=== PATIENT | female | born 1940 | race Caucasian/White ===

== ENCOUNTER 2020-06-28 09:22 | Emergency (ER) | payer MEDICARE, SELFPAY ==
[2020-06-28 09:39] VITALS: BP 179/86; PULSE 76; RESP 18; TEMP 36.7; O2SAT 97; BMI 34.9
--- NOTE | 2020-06-28 11:06 | XR_ITS ---
EXAMINATION: RIGHT ELBOW. RIGHT SHOULDER. CLINICAL INFORMATION: Fall. COMPARISON: None TECHNIQUE: 4 views of right elbow and 4 views of right shoulder. FINDINGS: Right elbow: There is no visible acute fracture, dislocation or subluxation. There is mild spurring along the coronoid process. No abnormal joint effusion seen. Right shoulder: There is a minimally overriding comminuted fracture right humeral neck. There is no dislocation. The soft tissues are normal. XR/XR elbow RT min 3V IMPRESSION: Comminuted right humeral neck fracture with mild overriding of fragments. No dislocation. No additional bony abnormality seen. Unremarkable right elbow exam.
--- NOTE | 2020-06-28 11:06 | XR_ITS ---
EXAMINATION: RIGHT ELBOW. RIGHT SHOULDER. CLINICAL INFORMATION: Fall. COMPARISON: None TECHNIQUE: 4 views of right elbow and 4 views of right shoulder. FINDINGS: Right elbow: There is no visible acute fracture, dislocation or subluxation. There is mild spurring along the coronoid process. No abnormal joint effusion seen. Right shoulder: There is a minimally overriding comminuted fracture right humeral neck. There is no dislocation. The soft tissues are normal. XR/XR shoulder RT min 2V IMPRESSION: Comminuted right humeral neck fracture with mild overriding of fragments. No dislocation. No additional bony abnormality seen. Unremarkable right elbow exam.
--- NOTE | 2020-06-28 11:49 | ED_ITS ---
HPI - Fall General Chief Complaint: Fall Stated Complaint: rt arm inj Time Seen by Provider: 06/28/20 10:50 Source: patient Mode of arrival: ambulatory Limitations: no limitations History of Present Illness HPI Narrative: 79-year-old female with no significant past medical history presents after falling this morning. Patient states she tripped over a brick because her glasses were fogged up from her mask, she states she landed on her right arm. Patient states she is unable to move her right arm at the shoulder joint. Patient states she can move her elbow or her wrist and her fingers with no problems. States she did not hit her head, did not lose consciousness and is not on a blood thinner. Related Data Allergies Allergy/AdvReac Type Severity Reaction Status Date / Time No Known Allergies Allergy Verified 06/28/20 09:39 Review of Systems Review of Systems: Yes all other systems are reviewed and are negative [facility] Past Medical History Medical History High blood pressure Hyperlipidemia Social History Social History Advance Directives: No Advance Directives Information Provided: Yes Physical Exam Vital Signs: Vital Signs: Last Vital Signs Temp 98.0 F 06/28/20 09:39 Pulse 76 06/28/20 09:39 Resp 18 06/28/20 09:39 BP 179/86 H 06/28/20 09:39 Pulse Ox 97 06/28/20 09:39 Body Mass Index 34.9 Const: General: cooperative, healthy appearing, comfortable, no acute distress and well developed Orientation/consciousness: patient oriented x3 HENMT: Head: Yes normal to inspection Face and sinus: Yes normal facial exam Eyes: General: appearance normal, both eyes and all related structures Pupils: Equal, round and reactive pupils present EOM: EOMs intact bilaterally Neck: Neck: Yes normal visual inspection, Yes full ROM, Yes trachea midline and Yes supple Neuro: General: patient oriented x3 Cranial nerves: Yes Equal, round and reactive pupils present Course Course Course Narrative: Patient is a 79-year-old female with no significant past medical history who tripped and fell this morning on the sidewalk and landed on her right side, x-ray shows a right comminuted fracture of the humerus, confirmed with Dr. Casiano to place it in a sling and follow up with him in 7-10 days. Consultations Consultation #1: Dr Casiano advised sling and f/u 10d Time: 11:57 Procedures Orthopedic Splinting/Casting Injury #1: Side: right Upper Extremity Injury Location: shoulder Upper Extremity Immobilizer: sling/shoulder immobilizer MDM - Fall Imaging Data shoulder and elbow x-ray: Radiologist's impression: [id number] [place] [address] XRay Report Signed Patient: Corine Kohler TMR#: [id number] : 1Acct:[id number] Age/Sex: 79 / FADM Date: 06/28/20 Loc: HO.ED Attending Dr: Ordering Physician: VERENICE GOLDSMITH Date of Service: 06/28/20 Procedure(s): XR shoulder RT min 2V Accession Number(s): [id number] cc: VERENICE GOLDSMITH~ EXAMINATION: RIGHT ELBOW. RIGHT SHOULDER. CLINICAL INFORMATION: Fall. COMPARISON: None TECHNIQUE: 4 views of right elbow and 4 views of right shoulder. FINDINGS: Right elbow: There is no visible acute fracture, dislocation or subluxation. There is mild spurring along the coronoid process. No abnormal joint effusion seen. Right shoulder: There is a minimally overriding comminuted fracture right humeral neck. There is no dislocation. The soft tissues are normal. XR/XR shoulder RT min 2V IMPRESSION: Comminuted right humeral neck fracture with mild overriding of fragments. No dislocation. No additional bony abnormality seen. Unremarkable right elbow exam. Dictated By:WILMER MARS MD Signed By:<Electronically signed by WILMER MARS MD in OV>06/28/20 1129 DD/ 1106 TD/TT: [employer] Gun Hand: [facility] [place] Discharge Plan Discharge Clinical Impression: Fracture of neck of right humerus Patient Disposition: Home, Self-Care Instructions: How to Use a Sling (ED), Proximal Humerus Fracture (ED) Referrals: Mark Casiano MD [Physician] - 10 days
== END 2020-06-28 12:30 | disposition home or self-care (01) ==
PROVIDERS: Emergency Provider Emergency Medicine Emergency Medical Services; PCP Family Medicine
DX: S42.294A Other nondisplaced fracture of upper end of right humerus, initial encounter for closed fracture (principal); W01.10XA Fall on same level from slipping, tripping and stumbling with subsequent striking against unspecified object, initial encounter; Y93.9 Activity, unspecified; Y92.9 Unspecified place or not applicable; Y99.9 Unspecified external cause status
CPT/HCPCS: 73030; 73080; 99283

== ENCOUNTER 2022-08-05 13:09 | Inpatient (IN) | payer MEDICARE, SELFPAY ==
--- NOTE | ~2022-08-05 | CT_ITS ---
CT head/brain wo IV con CLINICAL INFORMATION: Reason for Exam fall, head strike COMPARISON: No prior CT scan available for comparison. TECHNIQUE: Department standard protocol. This CT examination was performed using dose optimization techniques as appropriate, variously including the following: *Automated exposure control *Adjustment of mA and/or kV according to patient size (this includes techniques or standardized protocols for targeted exams where dose is matched to indication/reason for exam; i.e. extremities or head) *Use of iterative reconstruction technique DLP: 705 mGy-cm FINDINGS: CEREBRAL HEMISPHERES: There is no evidence of intra-axial or extra-axial mass, hemorrhage or acute infarct. BRAIN PARENCHYMA: Diffuse deep white matter and paraventricular hypoattenuation involving the frontoparietal lobes and centrum semiovale, also parieto-occipital lobes, diffuse distribution suggesting chronic microvascular angiopathy. The suero matter is spared. SUBDURAL SPACE: No bleed. BASAL GANGLIA AND PINEAL GLAND: Unremarkable VENTRICLES: Symmetric and normal in size. CEREBELLUM AND BRAINSTEM: No space-occupying mass, hemorrhage or acute infarct. CEREBELLOPONTINE ANGLES: No lesion found. ORBITS: Orbital bones are intact. VESSELS: Unremarkable SKULL BASE: Unremarkable INCLUDED SINUSES AT SKULL BASE: Clear SKULL AND SKIN: No fracture or bone lesion found. CT/CT head/brain wo IV con IMPRESSION: * No CT evidence of intracranial space-occupying mass, there is no CT evidence of intracranial bleed. * Diffuse deep white matter and periventricular hypoattenuation, diffuse distribution suggesting chronic microvascular angiopathy.
--- NOTE | ~2022-08-05 | XR_ITS ---
EXAMINATION: RIGHT HIP, RIGHT KNEE CLINICAL INFORMATION: Fall with pain COMPARISON: None TECHNIQUE: Single view pelvis with 2 additional views right hip, 3 views right knee FINDINGS: Right hip: There is a comminuted intertrochanteric fracture of the right hip. There is superior subluxation of the distal fracture fragment by about 3.4 cm. The lesser trochanter is avulsed and displaced slightly medially. There is marked varices angulation. No other pelvic fractures are seen. Right knee: Degenerative changes are seen with narrowing of the medial compartment. No fractures or joint effusions. No chondrocalcinosis. XR/XR knee RT 3V IMPRESSION: Comminuted intertrochanteric right hip fracture. Degenerative changes in the medial compartment of the right knee
--- NOTE | ~2022-08-05 | CT_ITS ---
EXAMINATION: CT CERVICAL SPINE CLINICAL INFORMATION: Reason for Exam fall, head strike COMPARISON: No prior CT available, TECHNIQUE: Computed axial sagittal and coronal images acquired using department's standard protocol. This CT examination was performed using dose optimization techniques as appropriate, variously including the following: *Automated exposure control *Adjustment of mA and/or kV according to patient size (this includes techniques or standardized protocols for targeted exams where dose is matched to indication/reason for exam; i.e. extremities or head) *Use of iterative reconstruction technique CONTRAST: None DLP: 987 mGy-cm FINDINGS: SKULL BASE: Visualized structures at skull base are normal, Included facial sinuses are clear, CERVICAL VERTEBRAE: 7 cervical vertebrae identified maintaining a proper height and alignments. There is advanced arthritis at the atlantoaxial joint. Surrounding soft tissue calcifications. DISCS: Loss of disc heights at C2-C3, C3-C4, C6-C7 suggests underlying degenerative disc disease. C1-C2: There is no CT evidence of significant osseous narrowing of the central canal or neural foramen. C2-C3: Bilateral facet joints arthropathy right more than left. No significant central or foraminal stenosis. No fracture. C3-C4: There are bilateral facet joints arthropathy. No significant central or foraminal stenosis. No fracture. C4-C5: There is degenerative disc disease, there is facet joints arthropathy right more than left, there is developed osteophyte from the endplate causing mild stenosis of the right foramen. There is no central stenosis and left foramen is patent. C5-C6: There is facet joints arthropathy especially on the right, no fracture. No significant osseous a stenosis of central canal or neural foramen. C6-C7: There is no fracture. No significant stenosis of central canal or neural foramen. There is bilateral facet joints arthropathy right more than left. C7-T1: There is no fracture. No central or foraminal stenosis. PARAVERTEBRAL SOFT TISSUE: Paravertebral soft tissues unremarkable. CT/CT cervical spine wo IV con IMPRESSION: * No CT evidence of cervical spine fracture. * Advanced degenerative disc disease at C2-C3, C3-C4, C6-C7. * Degenerative disc disease at C4-C5, there is developed osteophyte from the endplate causing mild stenosis of the right foramen. 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 * Advanced facet joints arthropathy at multiple levels right more than left.
--- NOTE | ~2022-08-05 | XR_ITS ---
EXAMINATION: XR CHEST CLINICAL INFORMATION: Preop COMPARISON: None TECHNIQUE: Frontal view of the chest was obtained. FINDINGS: Lungs are mildly hypoinflated. Heart size within normal limits given technique. No infiltrates, effusions or lung masses are seen. Incidental note made of old healed right humeral neck fracture. XR/XR chest 1V IMPRESSION: No acute intrathoracic disease.
--- NOTE | ~2022-08-05 | FL_ITS ---
EXAMINATION: XR FLUOROSCOPY WITH IMAGES CLINICAL INFORMATION: Fracture right hip COMPARISON: Radiographs pelvis and right hip 08/05/2022 TECHNIQUE: Fluoroscopy Supervised By: Dr. Mark Casiano. Fluoroscopy Time: Not provided (see technical log) Cumulative Dose: Not provided (see technical log). Images: 5. FINDINGS: The comminuted intertrochanteric right hip fracture is reduced with gamma nail and intramedullary dasha with distal interlocking screw. Major fracture fragments are in near-anatomic alignment. No dislocation. Visualized hardware intact. FL/FL guidance in OR IMPRESSION: Status post open reduction internal fixation right hip fracture.
--- NOTE | ~2022-08-05 | XR_ITS ---
EXAMINATION: RIGHT HIP, RIGHT KNEE CLINICAL INFORMATION: Fall with pain COMPARISON: None TECHNIQUE: Single view pelvis with 2 additional views right hip, 3 views right knee FINDINGS: Right hip: There is a comminuted intertrochanteric fracture of the right hip. There is superior subluxation of the distal fracture fragment by about 3.4 cm. The lesser trochanter is avulsed and displaced slightly medially. There is marked varices angulation. No other pelvic fractures are seen. Right knee: Degenerative changes are seen with narrowing of the medial compartment. No fractures or joint effusions. No chondrocalcinosis. XR/XR hip RT w PEL1V IMPRESSION: Comminuted intertrochanteric right hip fracture. Degenerative changes in the medial compartment of the right knee
[2022-08-05 13:13] VITALS: BP 178/81; BP 180/80; PULSE 83; PULSE 90; RESP 18; TEMP 36.6; O2SAT 98; O2SAT 99; BMI 26.2
--- NOTE | 2022-08-05 13:51 | ED_ITS ---
HPI - General Adult General Chief complaint: Fall <JORDIN Camacho Last Filed: 08/06/22 11:41> Stated complaint: FALL DOWN STAIRS R SIDE PAIN PER EMS <JORDIN Camacho - Last Filed: 08/06/22 11:41> Time Seen by Provider: 08/05/22 13:49 <JORDIN Camacho Last Filed: 08/06/22 11:41> Source: patient and EMS <JORDIN Camacho Last Filed: 08/06/22 11:41> Mode of arrival: EMS <JORDIN Camacho Last Filed: 08/06/22 11:41> Limitations: no limitations <JORDIN Camacho Last Filed: 08/06/22 11:41> History of Present Illness HPI narrative: Patient is an 81 year old assigned female at with no reported medical history presenting to the emergency department today with right hip pain. Patient states that the patient tripped and fell down 1 stair and landed on her right side and hitting her head. Patient denies any loss of cons ciousness. Patient denies any dizziness, lightheadedness, abdominal pain, nausea, vomiting, fever, chills, blurry vision, double vision, loss of vision, chest pain, difficulty breathing, shortness of breath, back pain, night sweats, pain with urination, increased urinary frequency, increased urinary urgency, blood in her urine or stool, syncope or a near syncopal episode, bowel incontinence, bladder incontinence, bowel retention, bladder retention, or any other complaints at this time. <JORDIN Camacho - Last Filed: 08/06/22 11:41> Onset (ago): minute(s) <JORDIN Camacho - Last Filed: 08/06/22 11:41> Location: right and lower extremity <JORDIN Camacho Last Filed: 08/06/22 11:41> Radiation: non-radiation <JORDIN Camacho Last Filed: 08/06/22 11:41> Severity: moderate <JORDIN Camacho Last Filed: 08/06/22 11:41> Severity scale (1-10): 5 <JORDIN Camacho Last Filed: 08/06/22 11:41> Quality: aching and dull <JORDIN Camacho Last Filed: 08/06/22 11:41> Pain Consistency: constant <JORDIN Camacho Last Filed: 08/06/22 11:41> Relieving factors: none <JORDIN Camacho Last Filed: 08/06/22 11:41> Exacerbating factors: none <JORDIN Camacho Last Filed: 08/06/22 11:41> Associated symptoms: denies other symptoms <JORDIN Camacho Last Filed: 08/06/22 11:41> Treatments prior to arrival: none <JORDIN Camacho Last Filed: 08/06/22 11:41> Related Data Home medications: Home Medications Medication Instructions Recorded Confirmed alendronate 70 mg tablet 1 tab PO SEYMOUR 08/05/22 08/05/22 amlodipine 5 mg tablet 1 tab PO DAILY@0800 08/05/22 08/05/22 anastrozole 1 mg tablet 1 tab PO DAILY@1600 08/05/22 08/05/22 calcium carbonate 600 mg-vitamin 1 tab PO DAILY@1600 08/05/22 08/05/22 D3 5 mcg (200 unit) tablet fluticasone 250 mcg-salmeterol 50 1 puff inhalation BID@0800,1600 08/05/22 08/05/22 mcg/dose blistr powdr for inhalation (Alejandro Klein) hydrochlorothiazide 25 mg tablet 1 tab PO DAILY@0800 08/05/22 08/05/22 losartan 100 mg tablet 1 tab PO DAILY@1600 08/05/22 08/05/22 lovastatin 10 mg tablet 1 tab PO DAILY@1200 08/05/22 08/05/22 metoprolol succinate 200 mg 1 tab PO DAILY@0800 08/05/22 08/05/22 tablet,extended release 24 hr psyllium 1 packet PO DAILY@0800 08/05/22 08/05/22 <JORDIN Camacho Last Filed: 08/06/22 11:41> Allergies/adverse reactions: Allergies Allergy/AdvReac Type Severity Reaction Status Date / Time No Known Allergies Allergy Verified 06/28/20 09:39 <JORDIN Camacho Last Filed: 08/06/22 11:41> Review of Systems Constitutional: Constitutional: Reports no additional constitutional complaints, Denies chills, Denies fever(s) and Denies night sweats <JORDIN Camacho - Last Filed: 08/06/22 11:41> Eyes: Eyes: Reports no additional eye complaints, Denies blurry vision, Denies change in vision, Denies diplopia, Denies eye discharge, Denies loss of vision and Denies eye pain <JORDIN Camacho - Last Filed: 08/06/22 11:41> ENT: Denies dizziness <JORDIN Camacho - Last Filed: 08/06/22 11:41> Cardiovascular: Cardiovascular: Reports no additional cardiovascular complaints, Denies chest pain, Denies lightheadedness, Denies Loss of Consciousness and Denies dyspnea <JORDIN Camacho - Last Filed: 08/06/22 11:41> Respiratory: Respiratory: Reports no additional respiratory complaints and Denies dyspnea <JORDIN Camacho - Last Filed: 08/06/22 11:41> Gastrointestinal: Gastrointestinal: Reports no additional gastrointestinal complaints, Denies abdominal pain, Denies melena, Denies hematochezia, Denies change in bowel habits and Denies change in stool character <JORDIN Camacho - Last Filed: 08/06/22 11:41> Genitourinary: Genitourinary: Denies hematuria, Denies urinary frequency, Denies dysuria, Denies urinary incontinence, Denies urinary hesitancy and Denies urinary urgency <JORDIN Camacho - Last Filed: 08/06/22 11:41> Musculoskeletal: Musculoskeletal: Reports no additional musculoskeletal complaints, Denies numbness and Denies tingling <JORDIN Camacho - Last Filed: 08/06/22 11:41> Comments: right hip pain <JORDIN Camacho - Last Filed: 08/06/22 11:41> Neurologic: Denies dizziness, Denies loss of vision, Denies numbness and Denies tingling <JORDIN Camacho - Last Filed: 08/06/22 11:41> Psychiatric: Psychiatric: Reports no additional psychiatric complaints <JORDIN Camacho - Last Filed: 08/06/22 11:41> Endocrine: Endocrine: Reports no additional endocrine complaints <JORDIN Camacho - Last Filed: 08/06/22 11:41> Hematologic/Lymphatic: Hematologic/Lymphatic: Reports no additional hematologic/lymphatic complaints <JORDIN Camacho - Last Filed: 08/06/22 11:41> Allergic/Immunologic: Allergic/Immunologic: Reports no additional allergic/immunologic complaints <JORDIN Camacho - Last Filed: 08/06/22 11:41> PMFSH Past Medical History Attestation statement: The following information was validated with the patient. <JORDIN Camacho - Last Filed: 08/06/22 11:41> Source: old records reviewed and nursing notes reviewed <JORDIN Camacho - Last Filed: 08/06/22 11:41> Medical History: Medical History High blood pressure Hyperlipidemia <JORDIN Camacho - Last Filed: 08/06/22 11:41> Social History Social History: Social History Household Members: Other Household Members Other:: lives alone in apartment Housing: Apartment Do you presently have visiting nurse or other home services: No Patient Tobacco Use Status: Former Tobacco user e-Cigarette/Vaping Use: Former Use <JORDIN Camacho - Last Filed: 08/06/22 11:41> Physical Exam ED Vital Signs: Vital Signs - 24 hr 08/05/22 13:13 08/05/22 14:30 08/05/22 16:15 Temperature 97.8 F 97.6 F 97.6 F Pulse Rate 83 77 80 Respiratory Rate 18 13 20 Blood Pressure 178/81 H 156/76 H 166/80 H Pulse Oximetry 98 98 97 Oxygen Delivery Method Room Air Room Air Room Air BMI result Body Mass Index 26.2 <JORDIN Camacho - Last Filed: 08/06/22 11:41> Vital Signs - 24 hr 08/05/22 13:13 08/05/22 14:30 08/05/22 16:15 Temperature 97.8 F 97.6 F 97.6 F Pulse Rate 83 77 80 Respiratory Rate 18 13 20 Blood Pressure 178/81 H 156/76 H 166/80 H Pulse Oximetry 98 98 97 Oxygen Delivery Method Room Air Room Air Room Air BMI result Body Mass Index 26.2 <Juan C Schilling MD - Last Filed: 08/09/22 11:13> Const General: cooperative, no acute distress, alert and awake <JORDIN Camacho - Last Filed: 08/06/22 11:41> Nutritional Appearance: well nourished <JORDIN Camacho - Last Filed: 08/06/22 11:41> Orientation/consciousness: patient oriented x3 <JORDIN Camacho - Last Filed: 08/06/22 11:41> Limitations: no limitations <JORDIN Camacho - Last Filed: 08/06/22 11:41> HENMT Head: Yes normal to inspection and Yes atraumatic <JORDIN Camacho - Last Filed: 08/06/22 11:41> Ears: hearing grossly normal bilaterally and external ears normal <JORDIN Camacho - Last Filed: 08/06/22 11:41> General nose exam: Normal external nose present, no nasal discharge noted and no epistaxis <JORDIN Camacho - Last Filed: 08/06/22 11:41> Face and sinus: Yes normal facial exam, No abrasion and No laceration <JORDIN Camacho - Last Filed: 08/06/22 11:41> Mouth: Normal oral and palatal mucosa present, no drooling and no muffled voice <JORDIN Camacho - Last Filed: 08/06/22 11:41> Eyes General: appearance normal, both eyes and all related structures <JORDIN Camacho - Last Filed: 08/06/22 11:41> Periorbital: periorbital findings normal <JORDIN Camacho - Last Filed: 08/06/22 11:41> Eyelids: Yes eyelids normal <JORDIN Camacho - Last Filed: 08/06/22 11:41> Conjunctivae: conjunctivae normal <JORDIN Camacho - Last Filed: 08/06/22 11:41> Pupils: Equal, round and reactive pupils present <JORDIN Camacho - Last Filed: 08/06/22 11:41> EOM: EOMs intact bilaterally <JORDIN Camacho - Last Filed: 08/06/22 11:41> Neck Neck: Yes normal visual inspection, Yes full ROM and Yes no lymphadenopathy <Latricia CrewsJORDIN lang - Last Filed: 08/06/22 11:41> Chest Chest palpation & inspection: normal inspection of the chest <Latricia Shultz SC - Last Filed: 08/06/22 11:41> Resp Effort & Inspection: normal respiratory effort and able to speak in complete sentences <Latricia CrewsJORDNI lang - Last Filed: 08/06/22 11:41> Auscultation: clear to auscultation bilaterally <Latricia Crewsrickey SC - Last Filed: 08/06/22 11:41> Cardio Rate: regular rate <Latricia Crewsrickey SC - Last Filed: 08/06/22 11:41> Rhythm: regular rhythm <Latricia Shultz SC - Last Filed: 08/06/22 11:41> GI Inspection: Yes normal to inspection <Latricia Crewsrickey SC - Last Filed: 08/06/22 11:41> Palpation (GI): Soft to palpation, not firm, nontender, no guarding and not rigid <Latricia Crewsrickey SC - Last Filed: 08/06/22 11:41> Neuro General: patient oriented x3 and moves all extremities <Latricia Crewsrickey SC - Last Filed: 08/06/22 11:41> Cranial nerves: Yes Equal, round and reactive pupils present <Latricia Crewsrickey SC - Last Filed: 08/06/22 11:41> Cognition (Neuro): normal cognition <Latricia Crewsrickey SC - Last Filed: 08/06/22 11:41> Motor exam (neuro): 5/5 motor strength present throughout <Latricia Crewsrickey SC - Last Filed: 08/06/22 11:41> Sensory Exam: Normal double simultaneous stimulation for sensation <Latricia Crewsrickey SC - Last Filed: 08/06/22 11:41> Coordination: [id number] test normal <Latricia Crewsrickey SC - Last Filed: 08/06/22 11:41> Extrem Other: pain to palpation of the right hip, pain with movement of the right hip <Latricia JORIDN Shultz - Last Filed: 08/06/22 11:41> General: Yes capillary refill normal <JORDIN Camacho - Last Filed: 08/06/22 11:41> Psych Appearance: grossly normal <JORDIN Camacho - Last Filed: 08/06/22 11:41> Mental Status: mental status grossly normal <JORDIN Camacho - Last Filed: 08/06/22 11:41> Affect: normal affect <JORDIN Camacho Last Filed: 08/06/22 11:41> Attitude: cooperative <JORDIN Camacho - Last Filed: 08/06/22 11:41> Thought process: Normal thought process present <JORDIN Camacho Last Filed: 08/06/22 11:41> Thought content: Normal thought content present <JORDIN Camacho Last Filed: 08/06/22 11:41> Insight: Good insight present (Psych) <JRODIN Camacho Last Filed: 08/06/22 11:41> Medications Administered Generic Name Dose Route Start Last Admin Trade Name Favioq PRN Reason Stop Dose Admin Acetaminophen 650 mg 08/05/22 19:08 08/09/22 07:32 Acetaminophen 325 Mg Tablet PO 650 mg Q6H PRN Administration Pain, Mild (Pain Scale 1-3) Amlodipine Besylate 10 mg 08/09/22 08:00 08/09/22 08:49 Amlodipine Besylate 10 Mg Tablet PO 10 mg DAILY@0800 [facility] Administration Protocol Anastrozole 1 mg 08/06/22 16:00 08/08/22 16:22 Anastrozole 1 Mg Tablet PO 1 mg DAILY@1600 [facility] Administration Calcium Carbonate/Cholecalciferol 500 mg 08/06/22 16:00 08/08/22 16:22 Calcium + Vitamin D 250 Mg Tablet PO 500 mg DAILY@1600 [facility] Administration Enoxaparin Sodium 40 mg 08/07/22 09:30 08/09/22 08:46 Enoxaparin Sodium 40 Mg/0.4 Ml Syringe SUBCUT 40 mg Q24H AFSANE[facility] Administration Fluticasone/Vilanterol 1 puff 08/06/22 09:00 08/09/22 08:01 Fluticasone/Vilanterol 100/25 Blst.W.Dev INHALE 1 puff DAILY AFSANEH Administration Hydromorphone HCl 1 mg 08/05/22 20:52 08/07/22 16:53 Hydromorphone Hcl 1 Mg/Ml Syringe IVPUSH 1 mg Q4H PRN Administration Pain, Severe (Pain Scale 7-10) Protocol Cefazolin Sodium/Dextrose 2 gm in 50 mls @ 100 mls/hr 08/06/22 16:15 08/06/22 17:41 Ancef IV Infused POSTOP AFS[facility] Infusion Losartan Potassium 100 mg 08/07/22 16:00 08/08/22 16:22 Losartan Potassium 50 Mg Tablet PO 100 mg DAILY@1600 [facility] Administration Protocol Metoprolol Succinate 200 mg 08/06/22 08:00 08/09/22 07:32 Metoprolol Succinate Er 100 Mg Tab.Er.24h PO 200 mg DAILY@0800 [facility] Administration Protocol Ondansetron HCl 4 mg 08/05/22 19:08 08/05/22 19:56 Ondansetron Hcl 4 Mg/2 Ml Vial IVPUSH 4 mg Q8H PRN Administration Nausea and Vomiting Polyethylene Glycol 17 gm 08/07/22 12:45 08/09/22 07:33 Polyethylene Glycol 3350 17 Gm Powd.Pack PO 17 gm DAILY AFSANE[facility] Administration Pravastatin Sodium 10 mg 08/06/22 12:00 08/08/22 12:02 Pravastatin Sodium 10 Mg Tablet PO 10 mg DAILY@1200 [facility] Administration Psyllium Hydrophilic Mucilloid 3.4 gm 08/06/22 08:00 08/09/22 07:32 Psyllium Seed 3.4 Gm Powd.Pack PO 3.4 gm DAILY@0800 [facility] Administration Sodium Chloride 3 ml 08/06/22 00:00 08/09/22 07:33 0.9 % Sodium Chloride Flush 3 Ml Syringe IVFLUSH 3 ml QSHIFT [facility] Administration Discontinued Medications Generic Name Dose Route Start Last Admin Trade Name Freq PRN Reason Stop Dose Admin Amlodipine Besylate 5 mg 08/06/22 08:00 08/08/22 09:19 Amlodipine Besylate 5 Mg Tablet PO 5 mg DAILY@0800 [facility] Administration Protocol Fentanyl 25 mcg 08/05/22 15:55 08/05/22 16:17 Fentanyl Citrate/Pf 100 Mcg/2 Ml Vial IVPUSH 08/05/22 15:56 25 mcg ONCE ONE Administration Protocol Fentanyl 25 mcg 08/05/22 16:38 08/05/22 16:45 Fentanyl Citrate/Pf 100 Mcg/2 Ml Vial IVPUSH 08/05/22 16:39 25 mcg ONCE ONE Administration Protocol Hydrochlorothiazide 25 mg 08/06/22 08:00 08/06/22 12:54 Hydrochlorothiazide 25 Mg Tablet PO 25 mg DAILY@0800 [facility] Administration Protocol Hydromorphone HCl 1 mg 08/05/22 23:14 08/05/22 23:26 Hydromorphone Hcl 1 Mg/Ml Syringe IVPUSH 08/05/22 23:15 1 mg ONCE ONE Administration Protocol Hydromorphone HCl 0.25 mg 08/06/22 09:43 08/06/22 11:30 Hydromorphone Hcl 0.5 Mg/0.5 Ml Syringe IVPUSH 0.25 mg Q5M PRN Administration Pain, Severe (Pain Scale 7-10) Protocol Sodium Chloride 1,000 mls @ 999 mls/hr 08/05/22 16:15 08/05/22 17:18 Ns IV 08/05/22 17:15 Infused .Q1H1M [facility]FS[facility] Infusion Lactated Ringer's 1,000 mls @ 50 mls/hr 08/06/22 08:00 08/06/22 18:17 Lr IVCONT Infused .Q20H [facility]FS[facility] Infusion Sodium Chloride 1,000 mls @ 100 mls/hr 08/06/22 18:15 08/08/22 13:39 Ns IVCONT Infused .Q10H [facility] Infusion Morphine Sulfate 4 mg 08/05/22 14:28 08/05/22 14:40 Morphine Sulfate 4 Mg/Ml Cartridge IVPUSH 08/05/22 14:29 4 mg ONCE ONE Administration Protocol Morphine Sulfate 4 mg 08/05/22 19:08 08/05/22 19:56 Morphine Sulfate 4 Mg/Ml Cartridge IVPUSH 4 mg Q4H PRN Administration Pain, Severe (Pain Scale 7-10) Protocol Ondansetron HCl 4 mg 08/05/22 14:28 08/05/22 14:39 Ondansetron Hcl 4 Mg/2 Ml Vial IVPUSH 08/05/22 14:29 4 mg ONCE ONE Administration Potassium Chloride 40 meq 08/07/22 18:21 08/07/22 18:33 Potassium Chloride Packet 20 Meq Packet PO 08/07/22 18:22 40 meq ONCE ONE Administration <JORDIN Camacho - Last Filed: 08/06/22 11:41> Medications Administered Generic Name Dose Route Start Last Admin Trade Name Favioq PRN Reason Stop Dose Admin Acetaminophen 650 mg 08/05/22 19:08 08/09/22 07:32 Acetaminophen 325 Mg Tablet PO 650 mg Q6H PRN Administration Pain, Mild (Pain Scale 1-3) Amlodipine Besylate 10 mg 08/09/22 08:00 08/09/22 08:49 Amlodipine Besylate 10 Mg Tablet PO 10 mg DAILY@0800 [facility] Administration Protocol Anastrozole 1 mg 08/06/22 16:00 08/08/22 16:22 Anastrozole 1 Mg Tablet PO 1 mg DAILY@1600 [facility] Administration Calcium Carbonate/Cholecalciferol 500 mg 08/06/22 16:00 08/08/22 16:22 Calcium + Vitamin D 250 Mg Tablet PO 500 mg DAILY@1600 [facility] Administration Enoxaparin Sodium 40 mg 08/07/22 09:30 08/09/22 08:46 Enoxaparin Sodium 40 Mg/0.4 Ml Syringe SUBCUT 40 mg Q24H [facility] Administration Fluticasone/Vilanterol 1 puff 08/06/22 09:00 08/09/22 08:01 Fluticasone/Vilanterol 100/25 Blst.W.Dev INHALE 1 puff DAILY [facility] Administration Hydromorphone HCl 1 mg 08/05/22 20:52 08/07/22 16:53 Hydromorphone Hcl 1 Mg/Ml Syringe IVPUSH 1 mg Q4H PRN Administration Pain, Severe (Pain Scale 7-10) Protocol Cefazolin Sodium/Dextrose 2 gm in 50 mls @ 100 mls/hr 08/06/22 16:15 08/06/22 17:41 Ancef IV Infused POSTOP [facility]FS[facility] Infusion Losartan Potassium 100 mg 08/07/22 16:00 08/08/22 16:22 Losartan Potassium 50 Mg Tablet PO 100 mg DAILY@1600 [facility] Administration Protocol Metoprolol Succinate 200 mg 08/06/22 08:00 08/09/22 07:32 Metoprolol Succinate Er 100 Mg Tab.Er.24h PO 200 mg DAILY@0800 [facility] Administration Protocol Ondansetron HCl 4 mg 08/05/22 19:08 08/05/22 19:56 Ondansetron Hcl 4 Mg/2 Ml Vial IVPUSH 4 mg Q8H PRN Administration Nausea and Vomiting Polyethylene Glycol 17 gm 08/07/22 12:45 08/09/22 07:33 Polyethylene Glycol 3350 17 Gm Powd.Pack PO 17 gm DAILY [facility]FS[facility] Administration Pravastatin Sodium 10 mg 08/06/22 12:00 08/08/22 12:02 Pravastatin Sodium 10 Mg Tablet PO 10 mg DAILY@1200 [facility] Administration Psyllium Hydrophilic Mucilloid 3.4 gm 08/06/22 08:00 08/09/22 07:32 Psyllium Seed 3.4 Gm Powd.Pack PO 3.4 gm DAILY@0800 [facility] Administration Sodium Chloride 3 ml 08/06/22 00:00 08/09/22 07:33 0.9 % Sodium Chloride Flush 3 Ml Syringe IVFLUSH 3 ml QSHIFT [facility] Administration Discontinued Medications Generic Name Dose Route Start Last Admin Trade Name Freq PRN Reason Stop Dose Admin Amlodipine Besylate 5 mg 08/06/22 08:00 08/08/22 09:19 Amlodipine Besylate 5 Mg Tablet PO 5 mg DAILY@0800 [facility] Administration Protocol Fentanyl 25 mcg 08/05/22 15:55 08/05/22 16:17 Fentanyl Citrate/Pf 100 Mcg/2 Ml Vial IVPUSH 08/05/22 15:56 25 mcg ONCE ONE Administration Protocol Fentanyl 25 mcg 08/05/22 16:38 08/05/22 16:45 Fentanyl Citrate/Pf 100 Mcg/2 Ml Vial IVPUSH 08/05/22 16:39 25 mcg ONCE ONE Administration Protocol Hydrochlorothiazide 25 mg 08/06/22 08:00 08/06/22 12:54 Hydrochlorothiazide 25 Mg Tablet PO 25 mg DAILY@0800 [facility] Administration Protocol Hydromorphone HCl 1 mg 08/05/22 23:14 08/05/22 23:26 Hydromorphone Hcl 1 Mg/Ml Syringe IVPUSH 08/05/22 23:15 1 mg ONCE ONE Administration Protocol Hydromorphone HCl 0.25 mg 08/06/22 09:43 08/06/22 11:30 Hydromorphone Hcl 0.5 Mg/0.5 Ml Syringe IVPUSH 0.25 mg Q5M PRN Administration Pain, Severe (Pain Scale 7-10) Protocol Sodium Chloride 1,000 mls @ 999 mls/hr 08/05/22 16:15 08/05/22 17:18 Ns IV 08/05/22 17:15 Infused .Q1H1M AFSANE[facility] Infusion Lactated Ringer's 1,000 mls @ 50 mls/hr 08/06/22 08:00 08/06/22 18:17 Lr IVCONT Infused .Q20H [facility] Infusion Sodium Chloride 1,000 mls @ 100 mls/hr 08/06/22 18:15 08/08/22 13:39 Ns IVCONT Infused .Q10H [facility] Infusion Morphine Sulfate 4 mg 08/05/22 14:28 08/05/22 14:40 Morphine Sulfate 4 Mg/Ml Cartridge IVPUSH 08/05/22 14:29 4 mg ONCE ONE Administration Protocol Morphine Sulfate 4 mg 08/05/22 19:08 08/05/22 19:56 Morphine Sulfate 4 Mg/Ml Cartridge IVPUSH 4 mg Q4H PRN Administration Pain, Severe (Pain Scale 7-10) Protocol Ondansetron HCl 4 mg 08/05/22 14:28 08/05/22 14:39 Ondansetron Hcl 4 Mg/2 Ml Vial IVPUSH 08/05/22 14:29 4 mg ONCE ONE Administration Potassium Chloride 40 meq 08/07/22 18:21 08/07/22 18:33 Potassium Chloride Packet 20 Meq Packet PO 08/07/22 18:22 40 meq ONCE ONE Administration <Juan C Schilling MD - Last Filed: 08/09/22 11:13> Medical Decision Making Medical Decision Making MDM Narrative: Patient is an 81 year old assigned female at with a history of HTN and HLD presenting to the emergency department today with right hip pain after a fall. Patient's physical exam showed pain with palpation to the right hip and pain with right hip movement. Patient's blood work showed hyponatremia at 130 but was otherwise unremarkable. Patient's right hip x-ray showed a comminuted intertrochanteric right hip fracture. Patient's right knee showed no acute process. Patient's head and cervical spine CTs showed no acute process. I spoke to the orthopedic team who recommended medical admission with plans to operate tomorrow morning. I spoke to the hospitalist team who agreed to admission. I explained my physical exam findings as well as all test results to the patient. I answered all questions asked by the patient. Patient verbalized agreement and understanding with this treatment plan and admission. <JORDIN Camacho - Last Filed: 08/06/22 11:41> Differential Diagnosis Differential Diagnoses: The differential diagnosis associated with the presentation includes <JORDIN Camacho - Last Filed: 08/06/22 11:41> hip fracture, fall <JORDIN Camacho - Last Filed: 08/06/22 11:41> Consult Healthcare Provider Management of the patient was discussed with: Hospitalist (agreed to admission) and Pulmonologist (spoke to the orthopedic team who recommended medical admission) <JORDIN Camacho - Last Filed: 08/06/22 11:41> Lab Data MDM Lab Attestation statement: I reviewed the patient's lab results. <JORDIN Camacho - Last Filed: 08/06/22 11:41> Result Diagrams: 08/05/22 15:23 08/05/22 15:23 <JORDIN Camacho - Last Filed: 08/06/22 11:41> Labs: Lab Results 08/05/22 08/05/22 08/05/22 Range/Units 15:23 15:23 15:23 WBC 10.3 (4.8-10.8) X10*3/uL RBC 3.81 L (4.20-5.50) X10*6/uL Hgb 11.9 L (12.0-16.0) g/dl Hct 34.5 L (37.0-47.0) % MCV 90.6 (80.0-98.0) fL MCH 31.2 (27.0-33.0) pg MCHC 34.5 (31.0-35.0) g/dl RDW 12.5 (11.0-16.0) % Plt Count 251 (160-400) X10*3/uL MPV 9.4 (9.4-12.3) fL Immature Gran % (Auto) 0.4 (0.0-0.4) % Neut % (Auto) 86.0 H (45-73) % Lymph % (Auto) 7.4 L (20-40) % [place] % (Auto) 3.7 (2-11) % Eos % (Auto) 2.0 (0-4) % Baso % (Auto) 0.5 (0-2) % Lymph # (Auto) 0.8 L (1.2-4.9) X10*3/uL [place] # (Auto) 0.4 (0.1-1.2) X10*3/uL Eos # (Auto) 0.2 (0.0-0.4) X10*3/uL Baso # (Auto) 0.1 (0.0-0.2) X10*3/uL Abs Immat Gran (auto) 0.04 H (0.00-0.03) X10*3/uL Absolute Neuts (auto) 8.8 H (2.0-8.3) x10*3/uL Absolute Nucleated RBC 0.000 (0.0-0.012) X10*3/uL Nucleated RBC % (auto) 0.0 (0.0-0.2) /100WBC PT 11.5 (10.0-13.1) SEC INR 1.0 (0.9-1.1) APTT 31.5 (26.0-36.4) SEC Sodium 130 L (135-145) mmol/L Potassium 3.9 (3.3-5.1) mmol/L Chloride 98 (96-108) mmol/L Carbon Dioxide 24 (22-29) mmol/L Anion Gap 12 (12-20) BUN 14 (9-16) mg/dL Creatinine 0.93 (0.5-1.4) mg/dL Estim Creat Clear Calc 48.7 Estimated GFR 58 Random Glucose 125 H (60-115) mg/dL Calcium 8.9 (8.4-10.2) mg/dL Magnesium 1.9 (1.6-2.6) mg/dL Total Bilirubin 0.9 (0.0-1.0) mg/dL AST 17 (5-31) U/L ALT 22 (0-31) U/L Alkaline Phosphatase 79 (39-117) U/L Total Protein 6.4 L (6.5-8.0) g/dL Albumin 4.1 (3.5-5.0) g/dL COVID-19 (JYOTI) (Negative) COVID-19 Clin Com 08/05/22 Range/Units 16:45 WBC (4.8-10.8) X10*3/uL RBC (4.20-5.50) X10*6/uL Hgb (12.0-16.0) g/dl Hct (37.0-47.0) % MCV (80.0-98.0) fL MCH (27.0-33.0) pg MCHC (31.0-35.0) g/dl RDW (11.0-16.0) % Plt Count (160-400) X10*3/uL MPV (9.4-12.3) fL Immature Gran % (Auto) (0.0-0.4) % Neut % (Auto) (45-73) % Lymph % (Auto) (20-40) % [place] % (Auto) (2-11) % Eos % (Auto) (0-4) % Baso % (Auto) (0-2) % Lymph # (Auto) (1.2-4.9) X10*3/uL [place] # (Auto) (0.1-1.2) X10*3/uL Eos # (Auto) (0.0-0.4) X10*3/uL Baso # (Auto) (0.0-0.2) X10*3/uL Abs Immat Gran (auto) (0.00-0.03) X10*3/uL Absolute Neuts (auto) (2.0-8.3) x10*3/uL Absolute Nucleated RBC (0.0-0.012) X10*3/uL Nucleated RBC % (auto) (0.0-0.2) /100WBC PT (10.0-13.1) SEC INR (0.9-1.1) APTT (26.0-36.4) SEC Sodium (135-145) mmol/L Potassium (3.3-5.1) mmol/L Chloride (96-108) mmol/L Carbon Dioxide (22-29) mmol/L Anion Gap (12-20) BUN (9-16) mg/dL Creatinine (0.5-1.4) mg/dL Estim Creat Clear Calc Estimated GFR Random Glucose (60-115) mg/dL Calcium (8.4-10.2) mg/dL Magnesium (1.6-2.6) mg/dL Total Bilirubin (0.0-1.0) mg/dL AST (5-31) U/L ALT (0-31) U/L Alkaline Phosphatase (39-117) U/L Total Protein (6.5-8.0) g/dL Albumin (3.5-5.0) g/dL COVID-19 (JYOTI) Negative (Negative) COVID-19 Clin Com See Note <JORDIN Camacho - Last Filed: 08/06/22 11:41> Lab Results 08/05/22 08/05/22 08/05/22 Range/Units 15:23 15:23 15:23 WBC 10.3 (4.8-10.8) X10*3/uL RBC 3.81 L (4.20-5.50) X10*6/uL Hgb 11.9 L (12.0-16.0) g/dl Hct 34.5 L (37.0-47.0) % MCV 90.6 (80.0-98.0) fL MCH 31.2 (27.0-33.0) pg MCHC 34.5 (31.0-35.0) g/dl RDW 12.5 (11.0-16.0) % Plt Count 251 (160-400) X10*3/uL MPV 9.4 (9.4-12.3) fL Immature Gran % (Auto) 0.4 (0.0-0.4) % Neut % (Auto) 86.0 H (45-73) % Lymph % (Auto) 7.4 L (20-40) % [place] % (Auto) 3.7 (2-11) % Eos % (Auto) 2.0 (0-4) % Baso % (Auto) 0.5 (0-2) % Lymph # (Auto) 0.8 L (1.2-4.9) X10*3/uL [place] # (Auto) 0.4 (0.1-1.2) X10*3/uL Eos # (Auto) 0.2 (0.0-0.4) X10*3/uL Baso # (Auto) 0.1 (0.0-0.2) X10*3/uL Abs Immat Gran (auto) 0.04 H (0.00-0.03) X10*3/uL Absolute Neuts (auto) 8.8 H (2.0-8.3) x10*3/uL Absolute Nucleated RBC 0.000 (0.0-0.012) X10*3/uL Nucleated RBC % (auto) 0.0 (0.0-0.2) /100WBC PT 11.5 (10.0-13.1) SEC INR 1.0 (0.9-1.1) APTT 31.5 (26.0-36.4) SEC Sodium 130 L (135-145) mmol/L Potassium 3.9 (3.3-5.1) mmol/L Chloride 98 (96-108) mmol/L Carbon Dioxide 24 (22-29) mmol/L Anion Gap 12 (12-20) BUN 14 (9-16) mg/dL Creatinine 0.93 (0.5-1.4) mg/dL Estim Creat Clear Calc 48.7 Estimated GFR 58 Random Glucose 125 H (60-115) mg/dL Calcium 8.9 (8.4-10.2) mg/dL Magnesium 1.9 (1.6-2.6) mg/dL Total Bilirubin 0.9 (0.0-1.0) mg/dL AST 17 (5-31) U/L ALT 22 (0-31) U/L Alkaline Phosphatase 79 (39-117) U/L Total Protein 6.4 L (6.5-8.0) g/dL Albumin 4.1 (3.5-5.0) g/dL COVID-19 (JYOTI) (Negative) COVID-19 Clin Com 08/05/22 Range/Units 16:45 WBC (4.8-10.8) X10*3/uL RBC (4.20-5.50) X10*6/uL Hgb (12.0-16.0) g/dl Hct (37.0-47.0) % MCV (80.0-98.0) fL MCH (27.0-33.0) pg MCHC (31.0-35.0) g/dl RDW (11.0-16.0) % Plt Count (160-400) X10*3/uL MPV (9.4-12.3) fL Immature Gran % (Auto) (0.0-0.4) % Neut % (Auto) (45-73) % Lymph % (Auto) (20-40) % [place] % (Auto) (2-11) % Eos % (Auto) (0-4) % Baso % (Auto) (0-2) % Lymph # (Auto) (1.2-4.9) X10*3/uL [place] # (Auto) (0.1-1.2) X10*3/uL Eos # (Auto) (0.0-0.4) X10*3/uL Baso # (Auto) (0.0-0.2) X10*3/uL Abs Immat Gran (auto) (0.00-0.03) X10*3/uL Absolute Neuts (auto) (2.0-8.3) x10*3/uL Absolute Nucleated RBC (0.0-0.012) X10*3/uL Nucleated RBC % (auto) (0.0-0.2) /100WBC PT (10.0-13.1) SEC INR (0.9-1.1) APTT (26.0-36.4) SEC Sodium (135-145) mmol/L Potassium (3.3-5.1) mmol/L Chloride (96-108) mmol/L Carbon Dioxide (22-29) mmol/L Anion Gap (12-20) BUN (9-16) mg/dL Creatinine (0.5-1.4) mg/dL Estim Creat Clear Calc Estimated GFR Random Glucose (60-115) mg/dL Calcium (8.4-10.2) mg/dL Magnesium (1.6-2.6) mg/dL Total Bilirubin (0.0-1.0) mg/dL AST (5-31) U/L ALT (0-31) U/L Alkaline Phosphatase (39-117) U/L Total Protein (6.5-8.0) g/dL Albumin (3.5-5.0) g/dL COVID-19 (JYOTI) Negative (Negative) COVID-19 Clin Com See Note <Juan C Schilling MD - Last Filed: 08/09/22 11:13> Radiology Impression Radiologist Impression: My interpretation is in agreement with the radiologist's impression of these imaging studies. EXAMINATION: XR CHEST CLINICAL INFORMATION: Preop COMPARISON: None TECHNIQUE: Frontal view of the chest was obtained. FINDINGS: Lungs are mildly hypoinflated. Heart size within normal limits given technique. No infiltrates, effusions or lung masses are seen. Incidental note made of old healed right humeral neck fracture. XR/XR chest 1V IMPRESSION: No acute intrathoracic disease. Dictated By: Reyes Sweeney MD Signed By: Electronically signed by Reyes Sweeney MD 08/05/22 1457 -- EXAMINATION: RIGHT HIP, RIGHT KNEE CLINICAL INFORMATION: Fall with pain? COMPARISON: None? TECHNIQUE: Single view pelvis with 2 additional views right hip, 3 views right knee? FINDINGS: Right hip: There is a comminuted intertrochanteric fracture of the right hip. There is superior subluxation of the distal fracture fragment by about 3.4 cm. The lesser trochanter is avulsed and displaced slightly medially. There is marked varices angulation. No other pelvic fractures are seen. Right knee: Degenerative changes are seen with narrowing of the medial compartment. No fractures or joint effusions. No chondrocalcinosis. XR/XR hip RT w PEL1V IMPRESSION: Comminuted intertrochanteric right hip fracture. Degenerative changes in the medial compartment of the right knee Dictated By: Reyes Sweeney MD Signed By: Electronically signed by Reyes Sweeney MD 08/05/22 1501 EXAMINATION: CT CERVICAL SPINE CLINICAL INFORMATION: Reason for Exam fall, head strike COMPARISON: No prior CT available, TECHNIQUE: Computed axial sagittal and coronal images acquired using department's standard protocol. This CT examination was performed using dose optimization techniques as appropriate, variously including the following: *Automated exposure control *Adjustment of mA and/or kV according to patient size (this includes techniques or standardized protocols for targeted exams where dose is matched to indication/reason for exam; i.e. extremities or head) *Use of iterative reconstruction technique CONTRAST: None DLP: 987 mGy-cm FINDINGS:? SKULL BASE: Visualized structures at skull base are normal,? Included facial sinuses are clear,? CERVICAL VERTEBRAE: 7 cervical vertebrae identified maintaining a proper height and alignments. There is advanced arthritis at the atlantoaxial joint. Surrounding soft tissue calcifications. DISCS: Loss of disc heights at C2-C3, C3-C4, C6-C7 suggests underlying degenerative disc disease. C1-C2: There is no CT evidence of significant osseous narrowing of the central canal or neural foramen. C2-C3: Bilateral facet joints arthropathy right more than left. No significant central or foraminal stenosis. No fracture. C3-C4: There are bilateral facet joints arthropathy. No significant central or foraminal stenosis. No fracture. C4-C5: There is degenerative disc disease, there is facet joints arthropathy right more than left, there is developed osteophyte from the endplate causing mild stenosis of the right foramen. There is no central stenosis and left foramen is patent. C5-C6: There is facet joints arthropathy especially on the right, no fracture. No significant osseous a stenosis of central canal or neural foramen. C6-C7: There is no fracture. No significant stenosis of central canal or neural foramen. There is bilateral facet joints arthropathy right more than left. C7-T1: There is no fracture. No central or foraminal stenosis. PARAVERTEBRAL SOFT TISSUE: Paravertebral soft tissues unremarkable. ? CT/CT cervical spine wo IV con IMPRESSION: ? *? No CT evidence of cervical spine fracture. ? *? Advanced degenerative disc disease at C2-C3, C3-C4, C6-C7. ? *? Degenerative disc disease at C4-C5, there is developed osteophyte from the endplate causing mild stenosis of the right foramen. ? *? 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 ? *? Advanced facet joints arthropathy at multiple levels right more than left. Dictated By: Gabby Choe MD Signed By: Electronically signed by Gabby Choe MD 08/05/[address] head/brain wo IV con CLINICAL INFORMATION: Reason for Exam fall, head strike COMPARISON: No prior CT scan available for comparison. TECHNIQUE: Department standard protocol. This CT examination was performed using dose optimization techniques as appropriate, variously including the following: *Automated exposure control *Adjustment of mA and/or kV according to patient size (this includes techniques or standardized protocols for targeted exams where dose is matched to indication/reason for exam; i.e. extremities or head) *Use of iterative reconstruction technique DLP: 705 mGy-cm FINDINGS: ? CEREBRAL HEMISPHERES: There is no evidence of intra-axial or extra-axial mass, hemorrhage or acute infarct. BRAIN PARENCHYMA: Diffuse deep white matter and paraventricular hypoattenuation involving the frontoparietal lobes and centrum semiovale, also parieto-occipital lobes, diffuse distribution suggesting chronic microvascular angiopathy. The suero matter is spared. SUBDURAL SPACE: No bleed. BASAL GANGLIA AND PINEAL GLAND: Unremarkable VENTRICLES: Symmetric and normal in size. CEREBELLUM AND BRAINSTEM: No space-occupying mass, hemorrhage or acute infarct. CEREBELLOPONTINE ANGLES: No lesion found. ORBITS: Orbital bones are intact. VESSELS: Unremarkable SKULL BASE: Unremarkable INCLUDED SINUSES AT SKULL BASE: Clear SKULL AND SKIN: No fracture or bone lesion found. CT/CT head/brain wo IV con IMPRESSION: ? *? No CT evidence of intracranial space-occupying mass, there is no CT evidence of intracranial bleed. ? *? Diffuse deep white matter and periventricular hypoattenuation, diffuse distribution suggesting chronic microvascular angiopathy. Dictated By: Gabby Choe MD Signed By: Electronically signed by Gabby Choe MD 08/05/22 1531 <JORDIN Camacho - Last Filed: 08/06/22 11:41> Independent Historian Clinical information obtained from an independent historian. History obtained from or confirmed by: EMS <JORDIN Camacho - Last Filed: 08/06/22 11:41> Attestation Attending Attestation: I reviewed TRAFFIC OBSERVER/PA/Resident note, assessment and plan. I agree with the documentation, assessment and plan unless otherwise stated. <Juan C Schilling MD - Last Filed: 08/09/22 11:13> Critical Care Time Critical Care Time Critical Care Time: Yes <JORDIN Camacho - Last Filed: 08/06/22 11:41> Total Critical Care Time: 35 <JORDIN Camacho - Last Filed: 08/06/22 11:41> Attestation: I spent 30 minutes of Critical Care Time with this patient. This does not include time spent on separately reported billable procedures. <JORDIN Camacho - Last Filed: 08/06/22 11:41> Discharge Plan Discharge Clinical Impression: Intertrochanteric fracture of right femur <JORDIN Camacho - Last Filed: 08/06/22 11:41> Patient Disposition: Admitted As Inpatient <JORDIN Camacho - Last Filed: 08/06/22 11:41> Interventions: Admission Worksheet (ED) Last Done: 08/06/22 08:00 <JORDIN Camacho - Last Filed: 08/06/22 11:41> Discharge Date/Time: 08/06/22 08:01 <JORDIN Camacho - Last Filed: 08/06/22 11:41>
--- NOTE | 2022-08-05 14:26 | ECG_ITS ---
Test Reason : FALL Blood Pressure : / mmHG Vent. Rate : 076 BPM Atrial Rate : 076 BPM P-R Int : 188 ms QRS Dur : 096 ms QT Int : 400 ms P-R-T Axes : 046 009 026 degrees QTc Int : 450 ms Normal sinus rhythm Nonspecific T wave abnormality Abnormal ECG No previous ECGs available Referred By: Latricia Shultz Electronically Signed By:Bryan Galarza
[2022-08-05 14:30] VITALS: BP 156/76; PULSE 77; RESP 13; TEMP 36.4; O2SAT 98
[2022-08-05] MEDS: ondansetron HCL 4 MG/2 ML VIAL IVPUSH ×2 (14:39→19:56)
[2022-08-05] MEDS: Morphine Sulfate 4 MG/ML CARTRIDGE IVPUSH ×2 (14:40→19:56)
[2022-08-05 15:29] LABS: MANUAL DIFF FLAG NO
[2022-08-05 15:30] LABS: Basophils Absolute Auto 0.1 X10*3/uL (0.0-0.2); Basophils Percent Auto 0.5 % (0-2); Eosinophils Absolute Auto 0.2 X10*3/uL (0.0-0.4); Hematocrit 34.5 % (37.0-47.0); Hemoglobin 11.9 g/dl (12.0-16.0); Imm Gran Abs Auto 0.04 X10*3/uL (0.00-0.03); Imm Gran Pct Auto 0.4 % (0.0-0.4); Lymphocytes Absolute Auto 0.8 X10*3/uL (1.2-4.9); Lymphocytes Percent Auto 7.4 % (20-40); Mean Corpuscular HGB Conc 34.5 g/dl (31.0-35.0); Mean Corpuscular Hemoglobin 31.2 pg (27.0-33.0); Mean Corpuscular Volume 90.6 fL (80.0-98.0); Mean Platelet Volume 9.4 fL (9.4-12.3); Monocytes Absolute Auto 0.4 X10*3/uL (0.1-1.2); Monocytes Percent Auto 3.7 % (2-11); Neutrophils Absolute Auto 8.8 x10*3/uL (2.0-8.3); Platelet Count 251 X10*3/uL (160-400); Red Blood Count 3.81 X10*6/uL (4.20-5.50); Red Cell Distribution Width 12.5 % (11.0-16.0); White Blood Count 10.3 X10*3/uL (4.8-10.8)
[2022-08-05 15:42] LABS: Prothrombin Time 11.5 SEC (10.0-13.1)
[2022-08-05 15:45] LABS: Partial Thromboplastin Time 31.5 SEC (26.0-36.4)
--- NOTE | 2022-08-05 15:58 | P.CONOP_ITS ---
History of Present Illness HPI Consult date: 08/05/22 Chief complaint: FALL DOWN STAIRS R SIDE PAIN PER EMS Narrative: 81 year old female brought to the emergency department today by EMS with right hip pain. Patient states that she tripped and fell down 1 stair and landed on her right side and also hit her head. Patient denies any loss of consciousness. Patient denies any dizziness, lightheadedness. While in the ED, xrays obtained showed right intertrochanteric fracture of the femur. She was admitted to the medical service and orthopedics was consulted for surgical recommendations. . Review of Systems Review of Systems: per hpi [facility] Past Medical History Medical History High blood pressure Hyperlipidemia Social History Social History Smoked in Last 30 Days: No Use of substances other than those prescribed or required for medical reasons: No Advance Directives: No Meds Allergies Allergy/AdvReac Type Severity Reaction Status Date / Time No Known Allergies Allergy Verified 06/28/20 09:39 Active Medications: Current Medications Pharmacy Consult (Consult Rx Perform Med Rec) 1 each MISCELLANE ONCE PRN PRN Reason: Consult order Home Medications Medication Instructions Recorded Confirmed Last Taken Type alendronate 70 mg tablet 1 tab PO SEYMOUR 08/05/22 08/05/22 08/01/22 History amlodipine 5 mg tablet 1 tab PO DAILY@0800 08/05/22 08/05/22 08/05/22 History anastrozole 1 mg tablet 1 tab PO DAILY@1600 08/05/22 08/05/22 08/04/22 History calcium carbonate 600 mg-vitamin 1 tab PO DAILY@1600 08/05/22 08/05/22 08/04/22 History D3 5 mcg (200 unit) tablet fluticasone 250 mcg-salmeterol 50 1 puff inhalation BID@0800,1600 08/05/22 08/05/22 08/05/22 History mcg/dose blistr powdr for inhalation (Alejandro Klein) hydrochlorothiazide 25 mg tablet 1 tab PO DAILY@0800 08/05/22 08/05/22 08/05/22 History losartan 100 mg tablet 1 tab PO DAILY@1600 08/05/22 08/05/22 08/05/22 History lovastatin 10 mg tablet 1 tab PO DAILY@1200 08/05/22 08/05/22 08/04/22 History metoprolol succinate 200 mg 1 tab PO DAILY@0800 08/05/22 08/05/22 08/04/22 History tablet,extended release 24 hr psyllium 1 packet PO DAILY@0800 08/05/22 08/05/22 08/04/22 History Physical Exam Vital Signs: Vital Signs: Last Vital Signs Temp 97.6 F 08/05/22 14:30 Pulse 77 08/05/22 14:30 Resp 13 08/05/22 14:30 BP 156/76 H 08/05/22 14:30 Pulse Ox 98 08/05/22 14:30 O2 Del Method 08/05/22 14:30 BMI result Body Mass Index 26.2 Const: General: cooperative, healthy appearing and comfortable Extrem: Other: Right hip pain with log roll. Unable to SLR. Skin is intact, pulses and sensation are intact. Results Labs 08/05/22 15:23 08/05/22 15:23 Labs: Abnormal lab results 08/05/22 Range/Units 15: RBC 3.81 L (4.20-5.50) X10*6/uL Hgb 11.9 L (12.0-16.0) g/dl Hct 34.5 L (37.0-47.0) % Neut % (Auto) 86.0 H (45-73) % Lymph % (Auto) 7.4 L (20-40) % Lymph # (Auto) 0.8 L (1.2-4.9) X10*3/uL Abs Immat Gran (auto) 0.04 H (0.00-0.03) X10*3/uL Absolute Neuts (auto) 8.8 H (2.0-8.3) x10*3/uL H & H 08/05/22 Range/Units 15:23 Hgb 11.9 L (12.0-16.0) g/dl Hct 34.5 L (37.0-47.0) % Coagulation 08/05/22 Range/Units 15:23 INR 1.0 (0.9-1.1) All other labs normal. Assessment and Plan (1) Intertrochanteric fracture of right femur: Status: Acute Plan I discussed the case with Dr Casiano and explained the extent of the injury to the patient and options available which include surgical intervention. I expl ained the procedure in detail along with the length of recovery and rehab course. I explained the risk, benefits and alternatives. Risk including, but not limited to infection, blood clots, bleeding, non union or malunion and nerve/tissue damage to surrounding areas. I answered all their questions and with their understanding they have consented to move forward with Operative Fixation of the right hip . The patient will be T&S, med clearance obtained and NPO after midnight. Time Spent With Patient Time: Total time managing care of this patient today ____ minutes. Procedures Date of Service Date of Service: 08/05/22
[2022-08-05 16:06] LABS: Alanine Aminotransferase 22 U/L (0-31); Albumin Level 4.1 g/dL (3.5-5.0); Alkaline Phosphatase 79 U/L (39-117); Anion Gap 12 (12-20); Aspartate Amino Transferase 17 U/L (5-31); Bilirubin Total 0.9 mg/dL (0.0-1.0); Blood Urea Nitrogen 14 mg/dL (9-16); Calcium 8.9 mg/dL (8.4-10.2); Carbon Dioxide 24 mmol/L (22-29); Chloride 98 mmol/L (96-108); Creatinine Clr Calc Pharmacy 48.7; Estimated Glomerular Filt Rate 58; Glucose Random 125 mg/dL (60-115); Magnesium 1.9 mg/dL (1.6-2.6); Potassium 3.9 mmol/L (3.3-5.1); Sodium 130 mmol/L (135-145); Total Protein 6.4 g/dL (6.5-8.0)
[2022-08-05 16:15] VITALS: BP 166/80; PULSE 80; RESP 20; TEMP 36.4; O2SAT 97
[2022-08-05] MEDS: fentaNYL citrate/PF 100 MCG/2 ML VIAL 25 MCG IVPUSH ×2 (16:17→16:45)
[2022-08-05] MEDS: 0.9 % Sodium Chloride 1,000 ML 999 ML IV (16:17)
--- NOTE | 2022-08-05 16:22 | PHA.MEDREC ---
Pharmacy Consult ? Medication Reconciliation Pharmacy has completed the medication reconciliation. Interviewed patient and her daughter
[2022-08-05 17:12] LABS: COVID-19 Test Negative (Negative); IDNOW Serial# 55D5AD1C
--- NOTE | 2022-08-05 19:09 | P.HPHOSP_ITS ---
History of Present Illness Date of Service: 08/05/22 Chief Complaint: Right hip pain This is a 81-year-old female with pertinent history of left breast cancer on anastrozole, essential hypertension, osteoporosis who presents to the emergency department for evaluation of right hip pain. 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 Patient fell and not right side over her right hip and also hit her head. Denies loss of consciousness. No jerking movement of extremities, tongue bite, urinary or bowel incontinence. Patient denies fever, chills, chest discomfort, palpitations, shortness of breath, abdominal pain, changes in urinary or bowel habits. In the emergency department, imaging with community and intertrochanteric right hip fracture. Orthopedic surgery was consulted. Review of Systems Constitutional: Constitutional: Reports no additional constitutional complaints Cardiovascular: Cardiovascular: Reports no additional cardiovascular complaints Respiratory: Respiratory: Reports no additional respiratory complaints Gastrointestinal: Gastrointestinal: Reports no additional gastrointestinal complaints Genitourinary: Genitourinary: Reports no additional female genitourinary complaints Musculoskeletal: Musculoskeletal: Reports arthralgias PMFSH Medical History High blood pressure Hyperlipidemia Social History Smoked in Last 30 Days: No Use of substances other than those prescribed or required for medical reasons: No Advance Directives: No Meds Allergies Allergy/AdvReac Type Severity Reaction Status Date / Time No Known Allergies Allergy Verified 06/28/20 09:39 Active Medications: Current Medications Pharmacy Consult (Consult Rx Perform Med Rec) 1 each MISCELLANE ONCE PRN PRN Reason: Consult order Home Medications Medication Instructions Recorded Confirmed Last Taken Type alendronate 70 mg tablet 1 tab PO SEYMOUR 08/05/22 08/05/22 08/01/22 History amlodipine 5 mg tablet 1 tab PO DAILY@0800 08/05/22 08/05/22 08/05/22 History anastrozole 1 mg tablet 1 tab PO DAILY@1600 08/05/22 08/05/22 08/04/22 History calcium carbonate 600 mg-vitamin 1 tab PO DAILY@1600 08/05/22 08/05/22 08/04/22 History D3 5 mcg (200 unit) tablet fluticasone 250 mcg-salmeterol 50 1 puff inhalation BID@0800,1600 08/05/22 08/05/22 08/05/22 History mcg/dose blistr powdr for inhalation (Alejandro Klein) hydrochlorothiazide 25 mg tablet 1 tab PO DAILY@0800 08/05/22 08/05/22 08/05/22 History losartan 100 mg tablet 1 tab PO DAILY@1600 08/05/22 08/05/22 08/05/22 History lovastatin 10 mg tablet 1 tab PO DAILY@1200 08/05/22 08/05/22 08/04/22 History metoprolol succinate 200 mg 1 tab PO DAILY@0800 08/05/22 08/05/22 08/04/22 History tablet,extended release 24 hr psyllium 1 packet PO DAILY@0800 08/05/22 08/05/22 08/04/22 History Physical Exam Vital Signs and Narrative: Vital Signs: Last Vital Signs Temp 97.6 F 08/05/22 16:15 Pulse 80 08/05/22 16:15 Resp 20 08/05/22 16:15 BP 166/80 H 08/05/22 16:15 Pulse Ox 97 08/05/22 16:15 O2 Del Method 08/05/22 16:15 BMI result Body Mass Index 26.2 Elderly female lying in bed in no distress Neck supple, no JVD Regular rate and rhythm, S1-S2 heard Regular breath sounds bilaterally, no wheezing or crackles appreciated Abdomen soft nontender, no guarding, no rigidity Musculoskeletal: Right tenderness with limited motion of right lower extremity due to pain Patient is awake, alert and oriented to self, place, time and person ; no focal motor deficit Psych: Normal mood No pedal edema Results Labs 08/05/22 15:23 08/05/22 15:23 Labs: Laboratory Results - last 24 hr 08/05/22 08/05/22 08/05/22 15:23 15:23 15:23 MCV 90.6 MCH 31.2 MCHC 34.5 RDW 12.5 Plt Count 251 MPV 9.4 Immature Gran % (Auto) 0.4 Neut % (Auto) 86.0 H Lymph % (Auto) 7.4 L [place] % (Auto) 3.7 Eos % (Auto) 2.0 Baso % (Auto) 0.5 Lymph # (Auto) 0.8 L [place] # (Auto) 0.4 Eos # (Auto) 0.2 Baso # (Auto) 0.1 Abs Immat Gran (auto) 0.04 H Absolute Neuts (auto) 8.8 H Absolute Nucleated RBC 0.000 Nucleated RBC % (auto) 0.0 PT 11.5 INR 1.0 APTT 31.5 Anion Gap 12 Estim Creat Clear Calc 48.7 Estimated GFR 58 Random Glucose 125 H Calcium 8.9 Magnesium 1.9 Total Bilirubin 0.9 AST 17 ALT 22 Alkaline Phosphatase 79 Total Protein 6.4 L Albumin 4.1 COVID-19 (JYOTI) COVID-19 Clin Com 08/05/22 16:45 MCV MCH MCHC RDW Plt Count MPV Immature Gran % (Auto) Neut % (Auto) Lymph % (Auto) [place] % (Auto) Eos % (Auto) Baso % (Auto) Lymph # (Auto) [place] # (Auto) Eos # (Auto) Baso # (Auto) Abs Immat Gran (auto) Absolute Neuts (auto) Absolute Nucleated RBC Nucleated RBC % (auto) PT INR APTT Anion Gap Estim Creat Clear Calc Estimated GFR Random Glucose Calcium Magnesium Total Bilirubin AST ALT Alkaline Phosphatase Total Protein Albumin COVID-19 (JYOTI) Negative COVID-19 Clin Com See Note Imaging Radiologist's Impressions: Impressions Chest X-Ray 08/05/22 14:17 IMPRESSION: No acute intrathoracic disease. Hip/Pelvis X-Ray 08/05/22 14:17 IMPRESSION: Comminuted intertrochanteric right hip fracture. Degenerative changes in the medial compartment of the right knee Knee X-Ray 08/05/22 14:17 IMPRESSION: Comminuted intertrochanteric right hip fracture. Degenerative changes in the medial compartment of the right knee Cervical Spine CT 08/05/22 14:46 IMPRESSION: * No CT evidence of cervical spine fracture. * Advanced degenerative disc disease at C2-C3, C3-C4, C6-C7. * Degenerative disc disease at C4-C5, there is developed osteophyte from the endplate causing mild stenosis of the right foramen. 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 * Advanced facet joints arthropathy at multiple levels right more than left. Head CT 08/05/22 14:46 IMPRESSION: * No CT evidence of intracranial space-occupying mass, there is no CT evidence of intracranial bleed. * Diffuse deep white matter and periventricular hypoattenuation, diffuse distribution suggesting chronic microvascular angiopathy. Assessment and Plan (1) Intertrochanteric fracture of right femur: Status: Acute Plan This is a 81-year-old female with pertinent history of left breast cancer on anastrozole, essential hypertension, osteoporosis who presents to the emergency department for evaluation of right hip pain. #. Comminuted intertrochanteric right hip fracture due to mechanical fall: Orthopedic surgery consulted from the ER, appreciate assistance. Will keep NPO after midnight. Pain control with IV morphine p.r.n. RCRI 0, class I risk. #. Essential hypertension: Hold ARB prior to surgery to prevent postop hypotension #. Left-sided breast cancer on anastrozole #. Mixed hyperlipidemia: On statin DVT prophylaxis: Hold Lovenox for possible surgery DNR/DNI. Discussed with patient and daughter at bedside Cardiac diet. NPO after midnight Admit as inpatient and will require two night minimum hospital stay for operative fixation of the right hip Time Spent With Patient Time: Total time managing care of this patient today ____ minutes. Quality Stroke Does the patient have a stroke diagnosis?: No VTE Prior VTE?: No VTE Risk Level:: Medical - moderate - high VTE Device Contraindication: Treatment Not Indicated VTE Drug Contraindication: Treatment Not Indicated
[2022-08-05 19:28] VITALS: BP 136/61; PULSE 79; RESP 18; O2SAT 98
--- NOTE | 2022-08-05 20:21 | PC.NURSE ---
assumed care of patient at 1900 - daughter at bedside. patient medicated for pain/nausea with morphine and zofran per mar orders. provided tuna sandwich. purewick in place. will continue to monitor.
[2022-08-05] MEDS: HYDROmorphone HCl 1 MG/ML SYRINGE IVPUSH ×2 (21:03→23:26)
--- NOTE | 2022-08-05 21:30 | PC.NURSE ---
patient reports no relief of pain from morphine. MD Wood made aware. Dilaudid prn ordered q4 hours. Dilaudid 1mg administered at 2103. patient resting much more comfortably. will continue to monitor.
[2022-08-05 22:00] VITALS: BP 143/64; PULSE 73; RESP 16; TEMP 36.6; O2SAT 98
--- NOTE | 2022-08-05 22:10 | PC.NURSE ---
nurse to nurse report given to Vipul RUFFIN. patient going to overflow unit so she can be in more comfortable hospital bed.
--- NOTE | 2022-08-05 22:27 | MHC.EDTECH ---
THIS PCT ASSUMED CARE OF PT AT 2220 ,PATIENT CAME FROM MAIN ED TO OVERFLOW GOT MOVED TO BED ,PATIENT WAS MADE COMFORTABLE ,THIS PCT OFFER PT FOOD ,PATIENT SAID SHE WILL LOVE SUN BUTTER AND JELLY SANDWICH AND WATER ,PUREWICK IN PLACE PT NEICE AT BEDSIDE ,CALL [facility] WITHIN REACH ,BED ALARM ON .
[2022-08-05] MEDS: 0.9 % Sodium Chloride Flush 3 ML SYRINGE IVFLUSH (23:26)
[2022-08-06] VITALS (15 sets, daily range): BP systolic 137–178; BP diastolic 60–100; PULSE 69–87; RESP 12–20; TEMP 36.1–37.1; O2SAT 94–98
[2022-08-06 05:58] LABS: Basophils Percent Auto 0.2 % (0-2); Eosinophils Percent Auto 0.1 % (0-4); Hematocrit 29.4 % (37.0-47.0); Hemoglobin 10.5 g/dl (12.0-16.0); Imm Gran Abs Auto 0.07 X10*3/uL (0.00-0.03); Imm Gran Pct Auto 0.5 % (0.0-0.4); Lymphocytes Absolute Auto 0.5 X10*3/uL (1.2-4.9); Lymphocytes Percent Auto 3.7 % (20-40); MANUAL DIFF FLAG SCAN; Mean Corpuscular HGB Conc 35.7 g/dl (31.0-35.0); Mean Corpuscular Hemoglobin 31.5 pg (27.0-33.0); Mean Corpuscular Volume 88.3 fL (80.0-98.0); Mean Platelet Volume 9.5 fL (9.4-12.3); Monocytes Absolute Auto 0.6 X10*3/uL (0.1-1.2); Monocytes Percent Auto 4.5 % (2-11); Neutrophils Absolute Auto 12.1 x10*3/uL (2.0-8.3); Platelet Count 259 X10*3/uL (160-400); Red Blood Count 3.33 X10*6/uL (4.20-5.50); Red Cell Distribution Width 12.1 % (11.0-16.0); SCAN SMEAR FLAG 1; White Blood Count 13.3 X10*3/uL (4.8-10.8)
[2022-08-06 07:01] LABS: Anion Gap 14 (12-20); Blood Urea Nitrogen 12 mg/dL (9-16); Calcium 8.5 mg/dL (8.4-10.2); Carbon Dioxide 21 mmol/L (22-29); Chloride 96 mmol/L (96-108); Creatinine Clr Calc Pharmacy 61.2; Estimated Glomerular Filt Rate > 60; Glucose Random 149 mg/dL (60-115); Potassium 3.9 mmol/L (3.3-5.1); Sodium 127 mmol/L (135-145)
[2022-08-06 07:30] LABS: SLIDE REVIEW VERIFIED
--- NOTE | 2022-08-06 08:00 | PC.NURSE ---
OR here to take patient for surgery
--- NOTE | 2022-08-06 08:22 | HO.ANESPROP2 ---
[facility] Active Problems Active Problems: All Active Problems (Updated 08/05/22 @ 18:40 by JORDIN Camacho) Intertrochanteric fracture of right femur (Acute) Past Medical History Medical History High blood pressure Hyperlipidemia Family History Family history of problems with anesthesia: No Surgical History History of Problems with Anesthesia: No Social History Social History Patient Tobacco Use Status: Tobacco use Unknown Meds Allergies Allergy/AdvReac Type Severity Reaction Status Date / Time No Known Allergies Allergy Verified 06/28/20 09:39 Active Medications: Current Medications Acetaminophen (Acetaminophen 325 Mg Tablet) 650 mg PO Q6H PRN PRN Reason: Pain, Mild (Pain Scale 1-3) Amlodipine Besylate (Amlodipine Besylate 5 Mg Tablet) 5 mg PO DAILY@0800 [facility]; Protocol Anastrozole (Anastrozole 1 Mg Tablet) 1 mg PO DAILY@1600 [facility] Calcium Carbonate/Cholecalciferol (Calcium + Vitamin D 250 Mg Tablet) 500 mg PO DAILY@1600 [facility] Fluticasone/Vilanterol (Fluticasone/Vilanterol 100/25 Blst.W.Dev) 1 puff INHALE DAILY [facility] Hydrochlorothiazide (Hydrochlorothiazide 25 Mg Tablet) 25 mg PO DAILY@0800 [facility]; Protocol Hydromorphone HCl (Hydromorphone Hcl 1 Mg/Ml Syringe) 1 mg IVPUSH Q4H PRN; Protocol PRN Reason: Pain, Severe (Pain Scale 7-10) Last Admin: 08/05/22 21:03 Dose: 1 mg Lactated Ringer's (Lr) 1,000 mls @ 50 mls/hr IVCONT .Q20H [facility] Melatonin (Melatonin 3 Mg Tablet) 6 mg PO BEDTIME PRN PRN Reason: Insomnia Metoprolol Succinate (Metoprolol Succinate Er 100 Mg Tab.Er.24h) 200 mg PO DAILY@0800 [facility]; Protocol Ondansetron HCl (Ondansetron Hcl 4 Mg/2 Ml Vial) 4 mg IVPUSH Q8H PRN PRN Reason: Nausea and Vomiting Last Admin: 08/05/22 19:56 Dose: 4 mg Pharmacy Consult (Consult Rx Perform Med Rec) 1 each MISCELLANE ONCE PRN PRN Reason: Consult order Pravastatin Sodium (Pravastatin Sodium 10 Mg Tablet) 10 mg PO DAILY@1200 [facility] Psyllium Hydrophilic Mucilloid (Psyllium Seed 3.4 Gm Powd.Pack) 3.4 gm PO DAILY@0800 [facility] Sodium Chloride (0.9 % Sodium Chloride Flush 3 Ml Syringe) 3 ml IVFLUSH QSHIFT [facility] Last Admin: 08/05/22 23:26 Dose: 3 ml Home Medications Medication Instructions Recorded Confirmed Last Taken Type alendronate 70 mg tablet 1 tab PO SEYMOUR 08/05/22 08/05/22 08/01/22 History amlodipine 5 mg tablet 1 tab PO DAILY@0800 08/05/22 08/05/22 08/05/22 History anastrozole 1 mg tablet 1 tab PO DAILY@1600 08/05/22 08/05/22 08/04/22 History calcium carbonate 600 mg-vitamin 1 tab PO DAILY@1600 08/05/22 08/05/22 08/04/22 History D3 5 mcg (200 unit) tablet fluticasone 250 mcg-salmeterol 50 1 puff inhalation BID@0800,1600 08/05/22 08/05/22 08/05/22 History mcg/dose blistr powdr for inhalation (Alejandro Klein) hydrochlorothiazide 25 mg tablet 1 tab PO DAILY@0800 08/05/22 08/05/22 08/05/22 History losartan 100 mg tablet 1 tab PO DAILY@1600 08/05/22 08/05/22 08/05/22 History lovastatin 10 mg tablet 1 tab PO DAILY@1200 08/05/22 08/05/22 08/04/22 History metoprolol succinate 200 mg 1 tab PO DAILY@0800 08/05/22 08/05/22 08/04/22 History tablet,extended release 24 hr psyllium 1 packet PO DAILY@0800 08/05/22 08/05/22 08/04/22 History Exam Exam Date and Time: August 06, [id number] Height,Weight and Vital Signs: Height 5 ft 6 in Weight 73.8 kg Last Vital Signs Temp 97.4 F 08/06/22 02:31 Pulse 73 08/06/22 02:31 Resp 17 08/06/22 02:31 BP 155/70 H 08/06/22 02:31 Pulse Ox 94 08/06/22 02:31 O2 Del Method 08/06/22 02:31 Pertinent Lab Results Pertinent Lab Results: Laboratory Tests 08/05/22 08/05/22 08/05/22 15:23 15:23 15:23 WBC 10.3 RBC 3.81 L Hgb 11.9 L Hct 34.5 L MCV 90.6 MCH 31.2 MCHC 34.5 RDW 12.5 Plt Count 251 MPV 9.4 Immature Gran % (Auto) 0.4 Neut % (Auto) 86.0 H Lymph % (Auto) 7.4 L [place] % (Auto) 3.7 Eos % (Auto) 2.0 Baso % (Auto) 0.5 Lymph # (Auto) 0.8 L [place] # (Auto) 0.4 Eos # (Auto) 0.2 Baso # (Auto) 0.1 Abs Immat Gran (auto) 0.04 H Absolute Neuts (auto) 8.8 H Absolute Nucleated RBC 0.000 Nucleated RBC % (auto) 0.0 Smear Tech's Comments PT 11.5 INR 1.0 APTT 31.5 Sodium 130 L Potassium 3.9 Chloride 98 Carbon Dioxide 24 Anion Gap 12 BUN 14 Creatinine 0.93 Estim Creat Clear Calc 48.7 Estimated GFR 58 Random Glucose 125 H Calcium 8.9 Magnesium 1.9 Total Bilirubin 0.9 AST 17 ALT 22 Alkaline Phosphatase 79 Total Protein 6.4 L Albumin 4.1 COVID-19 (JYOTI) COVID-19 Clin Com Blood Type Antibody Screen 08/05/22 08/06/22 08/06/22 16:45 05:49 06:36 WBC 13.3 H RBC 3.33 L Hgb 10.5 L Hct 29.4 L MCV 88.3 MCH 31.5 MCHC 35.7 H RDW 12.1 Plt Count 259 MPV 9.5 Immature Gran % (Auto) 0.5 H Neut % (Auto) 91.0 H Lymph % (Auto) 3.7 L [place] % (Auto) 4.5 Eos % (Auto) 0.1 Baso % (Auto) 0.2 Lymph # (Auto) 0.5 L [place] # (Auto) 0.6 Eos # (Auto) 0.0 Baso # (Auto) 0.0 Abs Immat Gran (auto) 0.07 H Absolute Neuts (auto) 12.1 H Absolute Nucleated RBC 0.000 Nucleated RBC % (auto) 0.0 Smear Tech's Comments VERIFIED PT INR APTT Sodium 127 L Potassium 3.9 Chloride 96 Carbon Dioxide 21 L Anion Gap 14 BUN 12 Creatinine 0.74 Estim Creat Clear Calc 61.2 Estimated GFR > 60 Random Glucose 149 H Calcium 8.5 Magnesium Total Bilirubin AST ALT Alkaline Phosphatase Total Protein Albumin COVID-19 (JYOTI) Negative COVID-19 Clin Com See Note Blood Type Antibody Screen 08/06/22 06:36 WBC RBC Hgb Hct MCV MCH MCHC RDW Plt Count MPV Immature Gran % (Auto) Neut % (Auto) Lymph % (Auto) [place] % (Auto) Eos % (Auto) Baso % (Auto) Lymph # (Auto) [place] # (Auto) Eos # (Auto) Baso # (Auto) Abs Immat Gran (auto) Absolute Neuts (auto) Absolute Nucleated RBC Nucleated RBC % (auto) Smear Tech's Comments PT INR APTT Sodium Potassium Chloride Carbon Dioxide Anion Gap BUN Creatinine Estim Creat Clear Calc Estimated GFR Random Glucose Calcium Magnesium Total Bilirubin AST ALT Alkaline Phosphatase Total Protein Albumin COVID-19 (JYOTI) COVID-19 Clin Com Blood Type O Positive Antibody Screen NEGATIVE Airway Mallampati Class: II TM Dist: >3cm Neck ROM: Full Denture: Upper Heart: rrr Lungs: cta Assessment and Plan Assessment Anesthesia Assessment: Anesthesia Plan Discussed and Chart Reviewed Final Anesthetic Review Family History of Problems with Anesthesia: No History of Problems with Anesthesia: No NPO: Yes ASA Class: II Final Preanesthetic Review: No Changes in Pt Med Stat, Meds/Allgs Chart Reviewed and Consent Obtained/Reviewed Patient Risk: Intermediate Procedure Risk: Intermediate Anesthetic Plan Anesthetic Plan: GA Disposition: Standard PACU
--- NOTE | 2022-08-06 08:34 | PC.NURSE ---
Patient arrived with IV inserted prior
--- NOTE | 2022-08-06 08:49 | MHC.SHP ---
Pre-Procedural Eval Section A Date of Service: 08/06/22 The patient is an INPATIENT: Yes Changes since office visit: No Cold of Flu in the past 2 weeks, No New Medical Problems, No Changes in Medication and No Patient answered all questions The History & Physical has been completed within 30 days and I have reviewed it.: Yes Section B Chief Complaint: Right Hip Pain Allergies: Allergies Allergy/AdvReac Type Severity Reaction Status Date / Time No Known Allergies Allergy Verified 06/28/20 09:39 Plan I have reviewed the history and physical and performed a pertinent physical examination on my patient. No changes have occurred unless specified. Time Spent With Patient Time: Total time managing care of this patient today ____ minutes.
--- NOTE | 2022-08-06 10:30 | P.BOP_ITS ---
Brief Operative Note Date of Service: 08/06/22 Pre-op diagnosis: right hip IT fx Post-op diagnosis: same Procedure: RIght hip IMN Implants: Freedom 125 deg [id number] imn with 105 mm hip screw and 37.5 distal interlock Surgeon: Mark Casiano MD Anesthesia: GLMA and local Was an Pipe Bowl Paint Trimmer used for this Procedure?: No Estimated blood loss (mL): 100 IV fluids (mL): 800 Condition: stable Disposition: PACU
[2022-08-06] MEDS: HYDROmorphone HCl 0.5 MG/0.5 ML SYRINGE 0.25 MG IVPUSH ×2 (11:08→11:30)
[2022-08-06] MEDS: Pravastatin Sodium 10 MG TABLET PO (12:53)
[2022-08-06] MEDS: hydroCHLOROthiazide 25 MG TABLET PO (12:54)
[2022-08-06] MEDS: Metoprolol Succinate ER 100 MG TAB.ER.24H 200 MG PO (12:55)
[2022-08-06] MEDS: amLODIPine Besylate 5 MG TABLET PO (12:55)
[2022-08-06] MEDS: Lactated Ringers 1,000 ML 50 ML IVCONT (12:56)
--- NOTE | 2022-08-06 13:05 | MHC.CLN ---
NUTRITION CONSULT FOR DECREASED PO AND WEIGHT LOSS. RIGHT FEMUR FX WITH SURGERY 2/3. WEIGHT HX SHOWS WEIGHT ON 06/28/20=95.254. CURRENT WEIGHT=73.8 KG. SHOWS WEIGHT LOSS X 2 YEARS -23%. ADDING ENSURE TID TO INCREASE NUTRITIONAL INTAKE. PROVIDES 1050 KCALS, 60 G PROTEIN.
--- NOTE | 2022-08-06 13:25 | P.PNIM_ITS ---
Subjective Subjective Date of Service: 08/06/22 Interval History: Seen in follow-up for inter trochanteric fracture of the right femur Interval history: POD0. Patient reports pain is well controlled. She has no complaints at this time. Review of Systems Review of Systems: Yes all other systems are reviewed and are negative Physical Exam Vital Signs: Vital Signs: Last Vital Signs Temp 97.4 F 08/06/22 12:46 Pulse 74 08/06/22 12:46 Resp 18 08/06/22 12:46 BP 178/74 H 08/06/22 12:46 Pulse Ox 97 08/06/22 12:46 O2 Del Method 08/06/22 12:46 O2 Flow Rate 2 08/06/22 11:50 BMI result Body Mass Index 26.2 Constitutional - Awake and Alert, No apparent distress Eyes - PERRLA, EOMI Cardiovascular - S1S2, RRR, No edema Respiratory - Normal lung expansion, Normal respiratory effort, No respiratory distress, CTA bilaterally Gastrointestinal - NT / ND; +BS; No rebound or guarding Extremities - no calf tenderness bilaterally, no swelling Musculoskeletal - Normal inspection, postop bandage lateral right hip Skin - Warm/Dry Neurological - Alert & oriented x3 Psychological - Appropriate affect Objective Data Active Medications Acetaminophen (Acetaminophen 325 Mg Tablet) 650 mg PO Q6H PRN PRN Reason: Pain, Mild (Pain Scale 1-3) Amlodipine Besylate (Amlodipine Besylate 5 Mg Tablet) 5 mg PO DAILY@0800 [facility]; Protocol Last Admin: 08/06/22 12:55 Dose: 5 mg Documented By: FREDY Anastrozole (Anastrozole 1 Mg Tablet) 1 mg PO DAILY@1600 [facility] Calcium Carbonate/Cholecalciferol (Calcium + Vitamin D 250 Mg Tablet) 500 mg PO DAILY@1600 [facility] Fluticasone/Vilanterol (Fluticasone/Vilanterol 100/25 Blst.W.Dev) 1 puff INHALE DAILY [facility] Hydrochlorothiazide (Hydrochlorothiazide 25 Mg Tablet) 25 mg PO DAILY@0800 [facility]; Protocol Last Admin: 08/06/22 12:54 Dose: 25 mg Documented By: FREDY Hydromorphone HCl (Hydromorphone Hcl 1 Mg/Ml Syringe) 1 mg IVPUSH Q4H PRN; Protocol PRN Reason: Pain, Severe (Pain Scale 7-10) Last Admin: 08/05/22 21:03 Dose: 1 mg Documented By: HUYEN Lactated Ringer's (Lr) 1,000 mls @ 50 mls/hr IVCONT .Q20H [facility] Last Admin: 08/06/22 12:56 Dose: 50 mls/hr Documented By: FREDY Cefazolin Sodium/Dextrose (Ancef) 2 gm in 50 mls @ 100 mls/hr IV POSTOP AFSANEH Melatonin (Melatonin 3 Mg Tablet) 6 mg PO BEDTIME PRN PRN Reason: Insomnia Metoprolol Succinate (Metoprolol Succinate Er 100 Mg Tab.Er.24h) 200 mg PO DAILY@0800 [facility]; Protocol Last Admin: 08/06/22 12:55 Dose: 200 mg Documented By: FREDY Ondansetron HCl (Ondansetron Hcl 4 Mg/2 Ml Vial) 4 mg IVPUSH Q8H PRN PRN Reason: Nausea and Vomiting Last Admin: 08/05/22 19:56 Dose: 4 mg Documented By: HUYEN Pharmacy Consult (Consult Rx Perform Med Rec) 1 each MISCELLANE ONCE PRN PRN Reason: Consult order Pravastatin Sodium (Pravastatin Sodium 10 Mg Tablet) 10 mg PO DAILY@1200 [facility] Last Admin: 08/06/22 12:53 Dose: 10 mg Documented By: FREDY Psyllium Hydrophilic Mucilloid (Psyllium Seed 3.4 Gm Powd.Pack) 3.4 gm PO DAILY @0800 [facility] Last Admin: 08/06/22 12:55 Dose: 3.4 gm Documented By: FREDY Sodium Chloride (0.9 % Sodium Chloride Flush 3 Ml Syringe) 3 ml IVFLUSH QSHIFT [facility] Last Admin: 08/06/22 12:37 Dose: Not Given Documented By: FREDY Non-Admin Reason: Off Unit: Surgery Labs 08/06/22 05:49 08/06/22 06:36 Labs: Laboratory Results - last 24 hr 08/05/22 08/05/22 08/05/22 15:23 15:23 15:23 MCV 90.6 MCH 31.2 MCHC 34.5 RDW 12.5 Plt Count 251 MPV 9.4 Immature Gran % (Auto) 0.4 Neut % (Auto) 86.0 H Lymph % (Auto) 7.4 L [place] % (Auto) 3.7 Eos % (Auto) 2.0 Baso % (Auto) 0.5 Lymph # (Auto) 0.8 L [place] # (Auto) 0.4 Eos # (Auto) 0.2 Baso # (Auto) 0.1 Abs Immat Gran (auto) 0.04 H Absolute Neuts (auto) 8.8 H Absolute Nucleated RBC 0.000 Nucleated RBC % (auto) 0.0 Smear Tech's Comments PT 11.5 INR 1.0 APTT 31.5 Anion Gap 12 Estim Creat Clear Calc 48.7 Estimated GFR 58 Random Glucose 125 H Calcium 8.9 Magnesium 1.9 Total Bilirubin 0.9 AST 17 ALT 22 Alkaline Phosphatase 79 Total Protein 6.4 L Albumin 4.1 COVID-19 ([facility]OTI) COVID-[employer] Com Blood Type Antibody Screen 08/05/22 08/06/22 08/06/22 16:45 05:49 06:36 MCV 88.3 MCH 31.5 MCHC 35.7 H RDW 12.1 Plt Count 259 MPV 9.5 Immature Gran % (Auto) 0.5 H Neut % (Auto) 91.0 H Lymph % (Auto) 3.7 L [place] % (Auto) 4.5 Eos % (Auto) 0.1 Baso % (Auto) 0.2 Lymph # (Auto) 0.5 L [place] # (Auto) 0.6 Eos # (Auto) 0.0 Baso # (Auto) 0.0 Abs Immat Gran (auto) 0.07 H Absolute Neuts (auto) 12.1 H Absolute Nucleated RBC 0.000 Nucleated RBC % (auto) 0.0 Smear Tech's Comments VERIFIED PT INR APTT Anion Gap 14 Estim Creat Clear Calc 61.2 Estimated GFR > 60 Random Glucose 149 H Calcium 8.5 Magnesium Total Bilirubin AST ALT Alkaline Phosphatase Total Protein Albumin COVID-19 (JYOTI) Negative COVID-[employer] See Note Blood Type Antibody Screen 08/06/22 06:36 MCV MCH MCHC RDW Plt Count MPV Immature Gran % (Auto) Neut % (Auto) Lymph % (Auto) [place] % (Auto) Eos % (Auto) Baso % (Auto) Lymph # (Auto) [place] # (Auto) Eos # (Auto) Baso # (Auto) Abs Immat Gran (auto) Absolute Neuts (auto) Absolute Nucleated RBC Nucleated RBC % (auto) Smear Tech's Comments PT INR APTT Anion Gap Estim Creat Clear Calc Estimated GFR Random Glucose Calcium Magnesium Total Bilirubin AST ALT Alkaline Phosphatase Total Protein Albumin COVID-19 ([facility]YOTI) COVID-19 Clin Com Blood Type O Positive Antibody Screen NEGATIVE Assessment and Plan (1) Intertrochanteric fracture of right femur: Status: Acute Plan This is a 81-year-old female with pertinent history of left breast cancer on anastrozole, essential hypertension, osteoporosis who presents to the emergency department for evaluation of right hip pain. # Comminuted intertrochanteric right hip fracture due to mechanical fall -pod 0 -appreciate input from Orthopedic surgery Pain management per Orthopedic surgery # Essential hypertension -Hold HCTZ d/t hyponatremia -Continue amlodipine, valsartan #? Left-sided breast cancer -on anastrozole # Mixed hyperlipidemia -On statin DVT prophylaxis: Hold Lovenox for possible surgery DNR/DNI.? Cardiac diet.? Patient requires ongoing inpatient stay for orthopedic management of a trochanteric right hip fracture Time Spent With Patient Time: Total time managing care of this patient today ____ minutes. Quality Stroke Does the patient have a stroke diagnosis?: No VTE Prior VTE?: No VTE Risk Level:: Medical - moderate - high VTE Device Contraindication: Treatment Not Indicated VTE Drug Contraindication: Treatment Not Indicated
[2022-08-06] MEDS: Acetaminophen 325 MG TABLET 650 MG PO (14:54)
[2022-08-06] MEDS: Calcium + Vitamin D 250 MG TABLET 500 MG PO (14:54)
[2022-08-06] MEDS: Anastrozole 1 MG TABLET PO (14:55)
[2022-08-06] MEDS: HYDROmorphone HCl 1 MG/ML SYRINGE IVPUSH ×2 (15:36→23:10)
[2022-08-06] MEDS: ceFAZolin Sodium/Dextrose,Iso 2 GM/50 ML PIGGYBACK IV (17:02)
[2022-08-06 17:03] LABS: Anion Gap 15 (12-20); Blood Urea Nitrogen 12 mg/dL (9-16); Calcium 8.1 mg/dL (8.4-10.2); Carbon Dioxide 22 mmol/L (22-29); Chloride 93 mmol/L (96-108); Creatinine Clr Calc Pharmacy 61.2; Estimated Glomerular Filt Rate > 60; Glucose Random 164 mg/dL (60-115); Potassium 3.2 mmol/L (3.3-5.1); Sodium 127 mmol/L (135-145)
[2022-08-06] MEDS: 0.9 % Sodium Chloride 1,000 ML 100 ML IVCONT (18:22)
[2022-08-07 02:18] VITALS: BP 144/65; PULSE 67; RESP 18; TEMP 36.3; O2SAT 100
[2022-08-07] MEDS: 0.9 % Sodium Chloride 1,000 ML 100 ML IVCONT ×3 (03:17→21:47)
[2022-08-07 05:48] LABS: MANUAL DIFF FLAG NO
[2022-08-07 05:55] LABS: Basophils Percent Auto 0.1 % (0-2); Eosinophils Absolute Auto 0.1 X10*3/uL (0.0-0.4); Eosinophils Percent Auto 0.4 % (0-4); Hematocrit 24.8 % (37.0-47.0); Hemoglobin 8.7 g/dl (12.0-16.0); Imm Gran Abs Auto 0.11 X10*3/uL (0.00-0.03); Imm Gran Pct Auto 0.8 % (0.0-0.4); Lymphocytes Absolute Auto 0.8 X10*3/uL (1.2-4.9); Mean Corpuscular HGB Conc 35.1 g/dl (31.0-35.0); Mean Corpuscular Hemoglobin 31.3 pg (27.0-33.0); Mean Corpuscular Volume 89.2 fL (80.0-98.0); Mean Platelet Volume 9.9 fL (9.4-12.3); Monocytes Absolute Auto 1.1 X10*3/uL (0.1-1.2); Monocytes Percent Auto 8.5 % (2-11); Neutrophils Percent Auto 84.2 % (45-73); Platelet Count 251 X10*3/uL (160-400); Red Blood Count 2.78 X10*6/uL (4.20-5.50); Red Cell Distribution Width 12.1 % (11.0-16.0)
[2022-08-07 06:05] LABS: Anion Gap 13 (12-20); Blood Urea Nitrogen 12 mg/dL (9-16); Carbon Dioxide 23 mmol/L (22-29); Chloride 94 mmol/L (96-108); Creatinine Clr Calc Pharmacy 62.1; Estimated Glomerular Filt Rate > 60; Glucose Random 110 mg/dL (60-115); Potassium 3.4 mmol/L (3.3-5.1); Sodium 127 mmol/L (135-145)
[2022-08-07 08:00] VITALS: BP 167/68; PULSE 72; RESP 17; TEMP 36.6; O2SAT 97
[2022-08-07] MEDS: Metoprolol Succinate ER 100 MG TAB.ER.24H 200 MG PO (09:46)
[2022-08-07] MEDS: Enoxaparin Sodium 40 MG/0.4 ML SYRINGE SUBCUT (09:47)
[2022-08-07] MEDS: amLODIPine Besylate 5 MG TABLET PO (09:47)
[2022-08-07] MEDS: Fluticasone/Vilanterol 100/25 BLST.W.DEV 1 PUFF INHALE (12:06)
[2022-08-07 12:08] VITALS: PULSE 72; RESP 17; O2SAT 97
[2022-08-07] MEDS: Pravastatin Sodium 10 MG TABLET PO (12:09)
--- NOTE | 2022-08-07 12:38 | P.PNIM_ITS ---
Subjective Subjective Date of Service: 08/07/22 Interval History: Seen in follow-up for inter trochanteric fracture of the right femur Interval history: POD1. Patient reports pain is well controlled. She has no complaints at this time. Continues with mild hyponatremia 127. Reports cons tipation Review of Systems Review of Systems: Yes all other systems are reviewed and are negative Physical Exam Vital Signs: Vital Signs: Last Vital Signs Temp 97.9 F 08/07/22 08:00 Pulse 72 08/07/22 12:08 Resp 17 08/07/22 12:08 BP 167/68 H 08/07/22 08:00 Pulse Ox 97 08/07/22 08:00 O2 Del Method 08/07/22 08:00 O2 Flow Rate 1 08/06/22 19:17 BMI result Body Mass Index 26.2 Constitutional - Awake and Alert, No apparent distress Eyes - PERRLA, EOMI Cardiovascular - S1S2, RRR, No edema Respiratory - Normal lung expansion, Normal respiratory effort, No respiratory distress, CTA bilaterally Gastrointestinal - NT / ND; +BS; No rebound or guarding Extremities - no calf tenderness bilaterally, no swelling Musculoskeletal - Normal inspection, postop bandage lateral right hip Skin - Warm/Dry Neurological - Alert & oriented x3 Psychological - Appropriate affect Objective Data Active Medications Acetaminophen (Acetaminophen 325 Mg Tablet) 650 mg PO Q6H PRN PRN Reason: Pain, Mild (Pain Scale 1-3) Last Admin: 08/06/22 14:54 Dose: 650 mg Documented By: FREDY Amlodipine Besylate (Amlodipine Besylate 5 Mg Tablet) 5 mg PO DAILY@0800 REPLACED BY [facility]; Protocol Last Admin: 08/07/22 09:47 Dose: 5 mg Documented By: MITCH Anastrozole (Anastrozole 1 Mg Tablet) 1 mg PO DAILY@1600 REPLACED BY [facility] Last Admin: 08/06/22 14:55 Dose: 1 mg Documented By: FREDY Calcium Carbonate/Cholecalciferol (Calcium + Vitamin D 250 Mg Tablet) 500 mg PO DAILY@1600 [facility] Last Admin: 08/06/22 14:54 Dose: 500 mg Documented By: FREDY Enoxaparin Sodium (Enoxaparin Sodium 40 Mg/0.4 Ml Syringe) 40 mg SUBCUT Q24H REPLACED BY [facility] Last Admin: 08/07/22 09:47 Dose: 40 mg Documented By: MITCH Fluticasone/Vilanterol (Fluticasone/Vilanterol 100/25 Blst.W.Dev) 1 puff INHALE DAILY REPLACED BY [facility] Last Admin: 08/07/22 12:06 Dose: 1 puff Documented By: NEO Hydromorphone HCl (Hydromorphone Hcl 1 Mg/Ml Syringe) 1 mg IVPUSH Q4H PRN; Protocol PRN Reason: Pain, Severe (Pain Scale 7-10) Last Admin: 08/06/22 23:10 Dose: 1 mg Documented By: LATIA Cefazolin Sodium/Dextrose (Ancef) 2 gm in 50 mls @ 100 mls/hr IV POSTOP REPLACED BY [facility] Last Infusion: 08/06/22 17:41 Dose: 0 mls/hr Documented By: FREDY Sodium Chloride (Ns) 1,000 mls @ 100 mls/hr IVCONT .Q10H REPLACED BY [facility] Last Admin: 08/07/22 12:10 Dose: 100 mls/hr Documented By: MITCH Losartan Potassium (Losartan Potassium 50 Mg Tablet) 100 mg PO DAILY@1600 REPLACED BY [facility]; Protocol Melatonin (Melatonin 3 Mg Tablet) 6 mg PO BEDTIME PRN PRN Reason: Insomnia Metoprolol Succinate (Metoprolol Succinate Er 100 Mg Tab.Er.24h) 200 mg PO DAILY@0800 REPLACED BY [facility]; Protocol Last Admin: 08/07/22 09:46 Dose: 200 mg Documented By: MITCH Ondansetron HCl (Ondansetron Hcl 4 Mg/2 Ml Vial) 4 mg IVPUSH Q8H PRN PRN Reason: Nausea and Vomiting Last Admin: 08/05/22 19:56 Dose: 4 mg Documented By: HUYEN Pharmacy Consult (Consult Rx Perform Med Rec) 1 each MISCELLANE ONCE PRN PRN Reason: Consult order Pravastatin Sodium (Pravastatin Sodium 10 Mg Tablet) 10 mg PO DAILY@1200 REPLACED BY [facility] Last Admin: 08/07/22 12:09 Dose: 10 mg Documented By: MITCH Psyllium Hydrophilic Mucilloid (Psyllium Seed 3.4 Gm Powd.Pack) 3.4 gm PO DAILY@0800 REPLACED BY [facility] Last Admin: 08/07/22 09:47 Dose: 3.4 gm Documented By: MITCH Sodium Chloride (0.9 % Sodium Chloride Flush 3 Ml Syringe) 3 ml IVFLUSH QSHIFT [facility] Last Admin: 08/07/22 07:33 Dose: Not Given Documented By: MITCH Non-Admin Reason: IV Running Labs 08/07/22 05:39 08/07/22 05:39 Labs: Laboratory Results - last 24 hr 08/06/22 08/07/22 08/07/22 16:26 05:39 05:39 MCV 89.2 MCH 31.3 MCHC 35.1 H RDW 12.1 Plt Count 251 MPV 9.9 Immature Gran % (Auto) 0.8 H Neut % (Auto) 84.2 H Lymph % (Auto) 6.0 L [place] % (Auto) 8.5 Eos % (Auto) 0.4 Baso % (Auto) 0.1 Lymph # (Auto) 0.8 L [place] # (Auto) 1.1 Eos # (Auto) 0.1 Baso # (Auto) 0.0 Abs Immat Gran (auto) 0.11 H Absolute Neuts (auto) 11.0 H Absolute Nucleated RBC 0.000 Nucleated RBC % (auto) 0.0 Anion Gap 15 13 Estim Creat Clear Calc 61.2 62.1 Estimated GFR > 60 > 60 Random Glucose 164 H 110 Calcium 8.1 L 8.0 L Assessment and Plan (1) Intertrochanteric fracture of right femur: Status: Acute (2) Hyponatremia: Status: Acute Plan This is a 81-year-old female with pertinent history of left breast cancer on anastrozole, essential hypertension, osteoporosis who presents to the emergency department for evaluation of right hip pain. # Comminuted intertrochanteric right hip fracture due to mechanical fall -pod 1 -appreciate input from Orthopedic surgery Pain management per Orthopedic surgery # Essential hypertension- reasonably controlled -Hold HCTZ d/t hyponatremia -Continue amlodipine, valsartan. Consider increase amlodipine if remains hypertensive #Hyponatremia- likely related to hctz use -Hold hctz -Stable @ 127 -Continue NS @100ml/hr, fluid restrictions -Recheck sodium @2pm #? Left-sided breast cancer -on anastrozole # Mixed hyperlipidemia -On statin DVT prophylaxis: Hold Lovenox for possible surgery DNR/DNI.? Cardiac diet.? Patient requires ongoing inpatient stay for orthopedic management of a trochanteric right hip fracture and hyponatremia Time Spent With Patient Time: Total time managing care of this patient today ____ minutes. Quality Stroke Does the patient have a stroke diagnosis?: No VTE Prior VTE?: No VTE Risk Level:: Medical - moderate - high VTE Device Contraindication: Treatment Not Indicated VTE Drug Contraindication: Treatment Not Indicated
[2022-08-07] MEDS: polyethylene glycoL 3350 17 GM POWD.PACK PO (13:35)
[2022-08-07 14:48] LABS: Anion Gap 10 (12-20); Blood Urea Nitrogen 11 mg/dL (9-16); Carbon Dioxide 26 mmol/L (22-29); Chloride 92 mmol/L (96-108); Creatinine Clr Calc Pharmacy 64.8; Estimated Glomerular Filt Rate > 60; Glucose Random 130 mg/dL (60-115); Potassium 3.2 mmol/L (3.3-5.1); Sodium 125 mmol/L (135-145)
--- NOTE | 2022-08-07 15:24 | MHC.CM.PN ---
Addendum entered by Kati Zarate 08/08/22 14:13: [facility] IS OFFERING PENDING OT AND NEW PT EVAL AND INSURANCE AUTH LISANDRO MADE AWARE VIA T/C Addendum entered by Kati Zarate 08/08/22 12:03: CM RECEIVED A RETURN CALL FROM LISANDRO TODAY WHO REPORTED HER PHONE HAD SHE REPORTS THE PT LIVES ALONE AND IS INDEPENDENT AT BASELINE SHE USES NO DME AND HAS ONLY MEALS ON WHEELS FOR SERVICES SHE SAYS PT HAS HAD THE COVID VAX AND BOOSTERS SHE SAYS THE PT HAS A HCP, SHE WILL TRY TO FIND A COPY, IT IS HERSELF AND PTS BROTHER PER REPORT PCP: LENNOX ZAMBRANO IMM DELIVERED, ORIGINAL LEFT BEDSIDE PER DISCUSSION LISANDRO IS AWARE PT WILL NEED REHAB SHE REQUESTS A REFERRAL TO [facility] HOWEVER UNDERSTANDS THE CRITERIA NEEDED SHE ALSO AGREES TO STR FACILITIES IN THE AREA THAT ARE 3 STAR OR ABOVE PT WILL NEED BLS TRANSPORT Original Note: FREDY ATTEMPTED TO MEET WITH PT WHO WAS SLEEPING CM CALLED PTS RHYSLISANDRO RAMIREZ [phone], SHE ANSWERED A COUPLE OF QUESTIONS, HOWEVER CALL ENDED ABRUPTLY CM ATTEMPTED TO CALL BACK SEVERAL TIMES, IT NOW GOES DIRECTLY TO BOX FULL, UNABLE TO LEAVE MESSAGE CM WILL CALL AGAIN LATER IN THE DAY
--- NOTE | 2022-08-07 15:49 | HO.POSTANES ---
Post Anesthesia Evaluation Post Anesthesia Evaluation Vital Signs: Vital Signs Temp Pulse Resp BP Pulse Ox O2 Del Method 08/07/22 12:08 72 17 08/07/22 08:00 97.9 F 72 17 167/68 H 97 Room Air Anesthesia: General LMA Mental Status: Awake Pain Control: Satisfactory Nausea/Vomiting: None Hydration: Adequate Anesthesia-Related Issues: No Anes. Related Issues
[2022-08-07] MEDS: Anastrozole 1 MG TABLET PO (15:58)
[2022-08-07] MEDS: Losartan Potassium 50 MG TABLET 100 MG PO (15:58)
[2022-08-07] MEDS: Calcium + Vitamin D 250 MG TABLET 500 MG PO (15:58)
[2022-08-07 15:59] VITALS: BP 125/60; PULSE 70; RESP 16; TEMP 37.6; O2SAT 96
[2022-08-07] MEDS: HYDROmorphone HCl 1 MG/ML SYRINGE IVPUSH (16:53)
--- NOTE | 2022-08-07 17:19 | P.PNOP_ITS ---
Subjective Subjective Date of Service: 08/07/22 Interval history: POD 1 s/p Rt hip IMN No overnight events resting in bed comfortably, she worked with PT today and has no concerns denies sob, palpitations, chest pain Physical Exam Vital Signs: Vital Signs: Last Vital Signs Temp 99.6 F 08/07/22 15:59 Pulse 70 08/07/22 15:59 Resp 16 08/07/22 15:59 BP 125/60 08/07/22 15:59 Pulse Ox 96 08/07/22 15:59 O2 Del Method 08/07/22 15:59 O2 Flow Rate 1 08/06/22 19:17 BMI result Body Mass Index 26.2 Const: General: cooperative, healthy appearing and no acute distress Resp: Effort & Inspection: normal respiratory effort and able to speak in complete sentences Cardio: Rate: regular rate Peripheral pulses: Peripheral pulses 2+ throughout GI: Palpation (GI): Soft to palpation Skin: General skin exam: no rashes or lesions noted Extrem: Other: incision clean dry and intact. [place] intact. No erythema or effusion. Calf supple nontender. Neurovascularly intact. Procedures Date of Service Date of Service: 08/07/22 Progress Note: A&P Assessment and plan (1) Intertrochanteric fracture of right femur: Status: Acute Assessment and Plan: * Continue pain mgmnt * Begin lovenox for dvt ppx * begin PT / OT for Rt hip IMN * Dispo planning-Pending PT eval, pain mgmnt Time Spent With Patient Time: Total time managing care of this patient today ____ minutes. Quality Stroke Does the patient have a stroke diagnosis?: No VTE Prior VTE?: No VTE Risk Level:: Medical - moderate - high VTE Device Contraindication: Treatment Not Indicated VTE Drug Contraindication: Treatment Not Indicated
[2022-08-07] MEDS: Potassium Chloride Packet 20 MEQ PACKET 40 MEQ PO (18:33)
[2022-08-07 19:09] LABS: Osmolality Urine 442 mosm/kg (373-1093)
[2022-08-07 19:16] VITALS: BP 151/64; PULSE 67; RESP 17; TEMP 36.6; O2SAT 95
[2022-08-08 03:38] VITALS: BP 142/67; PULSE 70; RESP 20; TEMP 37.1; O2SAT 95
[2022-08-08 06:15] LABS: MANUAL DIFF FLAG NO
[2022-08-08 06:22] LABS: Basophils Percent Auto 0.2 % (0-2); Eosinophils Absolute Auto 0.1 X10*3/uL (0.0-0.4); Eosinophils Percent Auto 1.2 % (0-4); Hematocrit 23.7 % (37.0-47.0); Hemoglobin 8.3 g/dl (12.0-16.0); Imm Gran Abs Auto 0.06 X10*3/uL (0.00-0.03); Imm Gran Pct Auto 0.6 % (0.0-0.4); Lymphocytes Absolute Auto 0.8 X10*3/uL (1.2-4.9); Lymphocytes Percent Auto 8.2 % (20-40); Mean Corpuscular Hemoglobin 31.1 pg (27.0-33.0); Mean Corpuscular Volume 88.8 fL (80.0-98.0); Mean Platelet Volume 10.5 fL (9.4-12.3); Monocytes Absolute Auto 0.8 X10*3/uL (0.1-1.2); Neutrophils Absolute Auto 8.3 x10*3/uL (2.0-8.3); Neutrophils Percent Auto 81.8 % (45-73); Platelet Count 230 X10*3/uL (160-400); Red Blood Count 2.67 X10*6/uL (4.20-5.50); Red Cell Distribution Width 12.3 % (11.0-16.0); White Blood Count 10.2 X10*3/uL (4.8-10.8)
[2022-08-08 06:50] LABS: Anion Gap 14 (12-20); Blood Urea Nitrogen 10 mg/dL (9-16); Calcium 8.3 mg/dL (8.4-10.2); Carbon Dioxide 23 mmol/L (22-29); Chloride 97 mmol/L (96-108); Creatinine Clr Calc Pharmacy 62.1; Estimated Glomerular Filt Rate > 60; Glucose Random 99 mg/dL (60-115); Potassium 3.6 mmol/L (3.3-5.1); Sodium 130 mmol/L (135-145)
[2022-08-08 07:02] LABS: Osmolality, Serum 269 mosm/kg (281-305)
[2022-08-08] MEDS: 0.9 % Sodium Chloride 1,000 ML 100 ML IVCONT (07:14)
[2022-08-08 07:49] VITALS: BP 158/67; PULSE 74; RESP 18; TEMP 37.1; O2SAT 96
[2022-08-08] MEDS: Fluticasone/Vilanterol 100/25 BLST.W.DEV 1 PUFF INHALE (08:06)
[2022-08-08 08:08] VITALS: PULSE 76; RESP 18; O2SAT 94
[2022-08-08] MEDS: Metoprolol Succinate ER 100 MG TAB.ER.24H 200 MG PO (09:19)
[2022-08-08] MEDS: polyethylene glycoL 3350 17 GM POWD.PACK PO (09:19)
[2022-08-08] MEDS: Enoxaparin Sodium 40 MG/0.4 ML SYRINGE SUBCUT (09:19)
[2022-08-08] MEDS: amLODIPine Besylate 5 MG TABLET PO (09:19)
[2022-08-08 09:45] LABS: Appearance Urine Clear; Color Urine Yellow; Glucose Urine UA Negative (Negative); Leukocyte Esterase Urine Negative (Negative); Nitrite Urine Negative (Negative); PH 5.5 (5.0-9.0); Specific Gravity - Urine <= 1.005 (1.005-1.025); Urine Blood Negative (Negative); Urine Ketones Trace mg/dL (Negative); Urine Protein Negative (Neg-Trace)
[2022-08-08] MEDS: Acetaminophen 325 MG TABLET 650 MG PO (12:02)
[2022-08-08] MEDS: Pravastatin Sodium 10 MG TABLET PO (12:02)
--- NOTE | 2022-08-08 13:24 | P.PNIM_ITS ---
Subjective Subjective Date of Service: 08/08/22 Interval History: Seen in follow-up for inter trochanteric fracture of the right femur Interval history: POD2. Patient reports pain is well controlled. Sodium improved to 130 following hctz discontinuation. No complaints Review of Systems Review of Systems: Yes all other systems are reviewed and are negative Physical Exam Vital Signs: Vital Signs: Last Vital Signs Temp 98.8 F 08/08/22 07:49 Pulse 76 08/08/22 08:08 Resp 18 08/08/22 08:08 BP 158/67 H 08/08/22 07:49 Pulse Ox 96 08/08/22 07:49 O2 Del Method 08/08/22 07:49 O2 Flow Rate 1 08/06/22 19:17 BMI result Body Mass Index 26.2 Constitutional - Awake and Alert, No apparent distress Eyes - PERRLA, EOMI Cardiovascular - S1S2, RRR, No edema Respiratory - Normal lung expansion, Normal respiratory effort, No respiratory distress, CTA bilaterally Gastrointestinal - NT / ND; +BS; No rebound or guarding Extremities - no calf tenderness bilaterally, no swelling Musculoskeletal - Normal inspection, postop bandage lateral right hip Skin - Warm/Dry Neurological - Alert & oriented x3 Psychological - Appropriate affect Objective Data Active Medications Acetaminophen (Acetaminophen 325 Mg Tablet) 650 mg PO Q6H PRN PRN Reason: Pain, Mild (Pain Scale 1-3) Last Admin: 08/08/22 12:02 Dose: 650 mg Documented By: MITCH Amlodipine Besylate (Amlodipine Besylate 5 Mg Tablet) 5 mg PO DAILY@0800 [facility]; Protocol Last Admin: 08/08/22 09:19 Dose: 5 mg Documented By: MITCH Anastrozole (Anastrozole 1 Mg Tablet) 1 mg PO DAILY@1600 [facility] Last Admin: 08/07/22 15:58 Dose: 1 mg Documented By: MITCH Calcium Carbonate/Cholecalciferol (Calcium + Vitamin D 250 Mg Tablet) 500 mg PO DAILY@1600 [facility] Last Admin: 08/07/22 15:58 Dose: 500 mg Documented By: MITCH Enoxaparin Sodium (Enoxaparin Sodium 40 Mg/0.4 Ml Syringe) 40 mg SUBCUT Q24H [facility] Last Admin: 08/08/22 09:19 Dose: 40 mg Documented By: MITCH Fluticasone/Vilanterol (Fluticasone/Vilanterol 100/25 Blst.W.Dev) 1 puff INHALE DAILY [facility] Last Admin: 08/08/22 08:06 Dose: 1 puff Documented By: RUBA Hydromorphone HCl (Hydromorphone Hcl 1 Mg/Ml Syringe) 1 mg IVPUSH Q4H PRN; Protocol PRN Reason: Pain, Severe (Pain Scale 7-10) Last Admin: 08/07/22 16:53 Dose: 1 mg Documented By: MITCH Cefazolin Sodium/Dextrose (Ancef) 2 gm in 50 mls @ 100 mls/hr IV POSTOP [facility] Last Infusion: 08/06/22 17:41 Dose: 0 mls/hr Documented By: FREDY Sodium Chloride (Ns) 1,000 mls @ 100 mls/hr IVCONT .Q10H [facility] Last Admin: 08/08/22 07:14 Dose: 100 mls/hr Documented By: MITCH Losartan Potassium (Losartan Potassium 50 Mg Tablet) 100 mg PO DAILY@1600 [facility]; Protocol Last Admin: 08/07/22 15:58 Dose: 100 mg Documented By: MITCH Melatonin (Melatonin 3 Mg Tablet) 6 mg PO BEDTIME PRN PRN Reason: Insomnia Metoprolol Succinate (Metoprolol Succinate Er 100 Mg Tab.Er.24h) 200 mg PO DAILY@0800 [facility]; Protocol Last Admin: 08/08/22 09:19 Dose: 200 mg Documented By: MITCH Ondansetron HCl (Ondansetron Hcl 4 Mg/2 Ml Vial) 4 mg IVPUSH Q8H PRN PRN Reason: Nausea and Vomiting Last Admin: 08/05/22 19:56 Dose: 4 mg Documented By: HUYEN Pharmacy Consult (Consult Rx Perform Med Rec) 1 each MISCELLANE ONCE PRN PRN Reason: Consult order Polyethylene Glycol (Polyethylene Glycol 3350 17 Gm Powd.Pack) 17 gm PO DAILY [facility] Last Admin: 08/08/22 09:19 Dose: 17 gm Documented By: MITCH Pravastatin Sodium (Pravastatin Sodium 10 Mg Tablet) 10 mg PO DAILY@1200 [facility] Last Admin: 08/08/22 12:02 Dose: 10 mg Documented By: MITCH Psyllium Hydrophilic Mucilloid (Psyllium Seed 3.4 Gm Powd.Pack) 3.4 gm PO DA LISA@0800 [facility] Last Admin: 08/08/22 09:19 Dose: 3.4 gm Documented By: MITCH Sodium Chloride (0.9 % Sodium Chloride Flush 3 Ml Syringe) 3 ml IVFLUSH QSHIFT [facility] Last Admin: 08/08/22 07:36 Dose: Not Given Documented By: MITCH Non-Admin Reason: IV Running Labs 08/08/22 05:24 08/08/22 05:24 Labs: Laboratory Results - last 24 hr 08/07/22 08/07/22 08/07/22 13:38 18:35 18:35 MCV MCH MCHC RDW Plt Count MPV Immature Gran % (Auto) Neut % (Auto) Lymph % (Auto) [place] % (Auto) Eos % (Auto) Baso % (Auto) Lymph # (Auto) [place] # (Auto) Eos # (Auto) Baso # (Auto) Abs Immat Gran (auto) Absolute Neuts (auto) Absolute Nucleated RBC Nucleated RBC % (auto) Anion Gap 10 L Estim Creat Clear Calc 64.8 Estimated GFR > 60 Random Glucose 130 H Osmolality Calcium 8.0 L Urine Color Urine Appearance Urine pH Ur Specific [place] Urine Protein Urine Glucose (UA) Urine Ketones Urine Blood Urine Nitrite Ur Leukocyte Esterase Urine Osmolality 442 Ur Random Sodium 74.0 08/08/22 08/08/22 08/08/22 05:24 05:24 05:25 MCV 88.8 MCH 31.1 MCHC 35.0 RDW 12.3 Plt Count 230 MPV 10.5 Immature Gran % (Auto) 0.6 H Neut % (Auto) 81.8 H Lymph % (Auto) 8.2 L [place] % (Auto) 8.0 Eos % (Auto) 1.2 Baso % (Auto) 0.2 Lymph # (Auto) 0.8 L [place] # (Auto) 0.8 Eos # (Auto) 0.1 Baso # (Auto) 0.0 Abs Immat Gran (auto) 0.06 H Absolute Neuts (auto) 8.3 Absolute Nucleated RBC 0.000 Nucleated RBC % (auto) 0.0 Anion Gap 14 Estim Creat Clear Calc 62.1 Estimated GFR > 60 Random Glucose 99 Osmolality 269 L Calcium 8.3 L Urine Color Urine Appearance Urine pH Ur Specific [place] Urine Protein Urine Glucose (UA) Urine Ketones Urine Blood Urine Nitrite Ur Leukocyte Esterase Urine Osmolality Ur Random Sodium 08/08/22 09:25 MCV MCH MCHC RDW Plt Count MPV Immature Gran % (Auto) Neut % (Auto) Lymph % (Auto) [place] % (Auto) Eos % (Auto) Baso % (Auto) Lymph # (Auto) [place] # (Auto) Eos # (Auto) Baso # (Auto) Abs Immat Gran (auto) Absolute Neuts (auto) Absolute Nucleated RBC Nucleated RBC % (auto) Anion Gap Estim Creat Clear Calc Estimated GFR Random Glucose Osmolality Calcium Urine Color Yellow Urine Appearance Clear Urine pH 5.5 Ur Specific [place] <= 1.005 Urine Protein Negative Urine Glucose (UA) Negative Urine Ketones Trace Urine Blood Negative Urine Nitrite Negative Ur Leukocyte Esterase Negative Urine Osmolality Ur Random Sodium Assessment and Plan (1) Intertrochanteric fracture of right femur: Status: Acute (2) Hyponatremia: Status: Acute Plan This is a 81-year-old female with pertinent history of left breast cancer on anastrozole, essential hypertension, osteoporosis who presents to the emergency department for evaluation of right hip pain. # Comminuted intertrochanteric right hip fracture due to mechanical fall -pod 2 -appreciate input from Orthopedic surgery Pain management per Orthopedic surgery -STR per PT # Essential hypertension- uncontrolled -Hold HCTZ indefinitely d/t hyponatremia -Continue amlodipine, valsartan #Hyponatremia- likely related to hctz use -Na improved to 130 -DC IVF. Tolearting PO. Continue fluid restrictions of 1.2L #? Left-sided breast cancer -on anastrozole # Mixed hyperlipidemia -On statin DVT prophylaxis: lovenox DNR/DNI Cardiac diet.? Patient requires ongoing inpatient stay for orthopedic management of a trochante casimiro right hip fracture and hyponatremia, pending placement Time Spent With Patient Time: Total time managing care of this patient today ____ minutes. Quality Stroke Does the patient have a stroke diagnosis?: No VTE Prior VTE?: No VTE Risk Level:: Medical - moderate - high VTE Device Contraindication: Treatment Not Indicated VTE Drug Contraindication: Treatment Not Indicated
[2022-08-08 15:47] VITALS: BP 129/60; PULSE 67; RESP 16; TEMP 37.1; O2SAT 96
[2022-08-08] MEDS: 0.9 % Sodium Chloride Flush 3 ML SYRINGE IVFLUSH ×2 (16:21→19:08)
[2022-08-08] MEDS: Calcium + Vitamin D 250 MG TABLET 500 MG PO (16:22)
[2022-08-08] MEDS: Losartan Potassium 50 MG TABLET 100 MG PO (16:22)
[2022-08-08] MEDS: Anastrozole 1 MG TABLET PO (16:22)
[2022-08-08 19:21] VITALS: BP 134/62; PULSE 66; RESP 16; TEMP 37.3; O2SAT 96
[2022-08-09] MEDS: Acetaminophen 325 MG TABLET 650 MG PO ×2 (00:35→07:32)
[2022-08-09 03:28] VITALS: BP 143/67; PULSE 69; RESP 18; TEMP 36.9; O2SAT 95
[2022-08-09 06:53] VITALS: BP 170/80; PULSE 73; RESP 18; TEMP 36.1; O2SAT 95
[2022-08-09 07:12] LABS: Anion Gap 13 (12-20); Blood Urea Nitrogen 9 mg/dL (9-16); Calcium 8.4 mg/dL (8.4-10.2); Carbon Dioxide 24 mmol/L (22-29); Chloride 101 mmol/L (96-108); Creatinine Clr Calc Pharmacy 63.8; Estimated Glomerular Filt Rate > 60; Glucose Random 103 mg/dL (60-115); Potassium 3.5 mmol/L (3.3-5.1); Sodium 134 mmol/L (135-145)
[2022-08-09] MEDS: Metoprolol Succinate ER 100 MG TAB.ER.24H 200 MG PO (07:32)
[2022-08-09] MEDS: polyethylene glycoL 3350 17 GM POWD.PACK PO (07:33)
[2022-08-09] MEDS: 0.9 % Sodium Chloride Flush 3 ML SYRINGE IVFLUSH ×2 (07:33→15:18)
[2022-08-09] MEDS: Fluticasone/Vilanterol 100/25 BLST.W.DEV 1 PUFF INHALE (08:01)
[2022-08-09 08:02] VITALS: PULSE 68; RESP 16; O2SAT 97
--- NOTE | 2022-08-09 08:41 | MHC.CM.PN ---
OT SARAH SENT TO [place] VIA [facility], CM WILL SEND PT DAILY NOTE SOON IT IS AVAILABLE.
[2022-08-09] MEDS: Enoxaparin Sodium 40 MG/0.4 ML SYRINGE SUBCUT (08:46)
[2022-08-09] MEDS: amLODIPine Besylate 10 MG TABLET PO (08:49)
[2022-08-09 10:21] VITALS: PULSE 70; O2SAT 97
[2022-08-09] MEDS: Pravastatin Sodium 10 MG TABLET PO (12:05)
--- NOTE | 2022-08-09 13:00 | P.CDIC_ITS ---
CDI Concurrent Query Documentation Clarification: PHYSICIAN'S DOCUMENTATION REQUEST Date of Query: 08/09/22 1301 Patient Name: Corine Kohler Admit Date: 08/05/22 Dear Doctor, A review of the medical record indicates additional documentation may be needed. Please review below and update the documentation accordingly. Risk Factors/Clinical Indicators/Treatments Intertrochanteric fracture of right femur status post IMN R hip H&H on 08/05/22: 11.9/34.5 H&H on 08/08/22: 8.3/23.7 Based on the above, could you clarify in the Progress Notes the appropriate diagnosis, if significant, that supports the above abnormalities and additional evaluation, monitoring, and/or treatment rendered: * Labs indicate a diagnosis of (please specify) * Other (please specify) * Unable to determine Use of terms such as suspected, likely, concern for, or probable (associated with a specific diagnosis that is being evaluated, monitored, or treated as if it exists) are acceptable and can be coded in the inpatient setting, when documented at the time of discharge. Thank you, Lizy Rosario RN Extension: [phone] Please use your independent medical judgment in providing your response. THIS QUERY IS PART OF THE PERMANENT MEDICAL RECORD Provider Response: Other Other Diagnosis: Acute blood loss anemia iwth background chronic normocytic anemia
--- NOTE | 2022-08-09 13:26 | HO.PM.IMPN ---
Subjective Subjective Date of Service: 08/09/22 Interval History: Seen in follow-up for inter trochanteric fracture of the right femur Interval history: POD3. Patient reports pain is well controlled. No complaints Review of Systems Review of Systems: Yes all other systems are reviewed and are negative Physical Exam Vital Signs: Vital Signs: Last Vital Signs Temp 97 F 08/09/22 06:53 Pulse 70 08/09/22 10:21 Resp 16 08/09/22 08:02 BP 170/80 H 08/09/22 06:53 Pulse Ox 97 08/09/22 10:21 O2 Del Method 08/09/22 06:53 O2 Flow Rate 1 08/06/22 19:17 BMI result Body Mass Index 26.2 Constitutional - Awake and Alert, No apparent distress Eyes - PERRLA, EOMI Cardiovascular - S1S2, RRR, No edema Respiratory - Normal lung expansion, Normal respiratory effort, No respiratory distress, CTA bilaterally Gastrointestinal - NT / ND; +BS; No rebound or guarding Extremities - no calf tenderness bilaterally, no swelling Musculoskeletal - Normal inspection, postop bandage lateral right hip Skin - Warm/Dry Neurological - Alert & oriented x3 Psychological - Appropriate affect Objective Data Active Medications Acetaminophen (Acetaminophen 325 Mg Tablet) 650 mg PO Q6H PRN PRN Reason: Pain, Mild (Pain Scale 1-3) Last Admin: 08/09/22 07:32 Dose: 650 mg Documented By: LAILA Amlodipine Besylate (Amlodipine Besylate 10 Mg Tablet) 10 mg PO DAILY@0800 [facility]; Protocol Last Admin: 08/09/22 08:49 Dose: 10 mg Documented By: LAILA Anastrozole (Anastrozole 1 Mg Tablet) 1 mg PO DAILY@1600 [facility] Last Admin: 08/08/22 16:22 Dose: 1 mg Documented By: MITCH Calcium Carbonate/Cholecalciferol (Calcium + Vitamin D 250 Mg Tablet) 500 mg PO DAILY@1600 [facility] Last Admin: 08/08/22 16:22 Dose: 500 mg Documented By: MITCH Enoxaparin Sodium (Enoxaparin Sodium 40 Mg/0.4 Ml Syringe) 40 mg SUBCUT Q24H [facility] Last Admin: 08/09/22 08:46 Dose: 40 mg Documented By: LAILA Fluticasone/Vilanterol (Fluticasone/Vilanterol 100/25 Blst.W.Dev) 1 puff INHALE DAILY [facility] Last Admin: 08/09/22 08:01 Dose: 1 puff Documented By: ROSA ELENA Hydromorphone HCl (Hydromorphone Hcl 1 Mg/Ml Syringe) 1 mg IVPUSH Q4H PRN; Protocol PRN Reason: Pain, Severe (Pain Scale 7-10) Last Admin: 08/07/22 16:53 Dose: 1 mg Documented By: MITCH Cefazolin Sodium/Dextrose (Ancef) 2 gm in 50 mls @ 100 mls/hr IV POSTOP [facility] Last Infusion: 08/06/22 17:41 Dose: 0 mls/hr Documented By: FREDY Losartan Potassium (Losartan Potassium 50 Mg Tablet) 100 mg PO DAILY@1600 [facility]; Protocol Last Admin: 08/08/22 16:22 Dose: 100 mg Documented By: MITCH Melatonin (Melatonin 3 Mg Tablet) 6 mg PO BEDTIME PRN PRN Reason: Insomnia Metoprolol Succinate (Metoprolol Succinate Er 100 Mg Tab.Er.24h) 200 mg PO DAILY@0800 [facility]; Protocol Last Admin: 08/09/22 07:32 Dose: 200 mg Documented By: LAILA Ondansetron HCl (Ondansetron Hcl 4 Mg/2 Ml Vial) 4 mg IVPUSH Q8H PRN PRN Reason: Nausea and Vomiting Last Admin: 08/05/22 19:56 Dose: 4 mg Documented By: HUYEN Pharmacy Consult (Consult Rx Perform Med Rec) 1 each MISCELLANE ONCE PRN PRN Reason: Consult order Polyethylene Glycol (Polyethylene Glycol 3350 17 Gm Powd.Pack) 17 gm PO DAILY [facility] Last Admin: 08/09/22 07:33 Dose: 17 gm Documented By: LAILA Pravastatin Sodium (Pravastatin Sodium 10 Mg Tablet) 10 mg PO DAILY@1200 [facility] Last Admin: 08/09/22 12:05 Dose: 10 mg Documented By: SARBJIT Psyllium Hydrophilic Mucilloid (Psyllium Seed 3.4 Gm Powd.Pack) 3.4 gm PO DAILY@0800 [facility] Last Admin: 08/09/22 07:32 Dose: 3.4 gm Documented By: LAILA Sodium Chloride (0.9 % Sodium Chloride Flush 3 Ml Syringe) 3 ml IVFLUSH QSHIFT [facility] Last Admin: 08/09/22 07:33 Dose: 3 ml Documented By: LAILA Labs 08/08/22 05:24 08/09/22 05:51 Labs: Laboratory Results - last 24 hr 08/09/22 05:51 Anion Gap 13 Estim Creat Clear Calc 63.8 Estimated GFR > 60 Random Glucose 103 Calcium 8.4 Assessment and Plan (1) Intertrochanteric fracture of right femur: Status: Acute (2) Hyponatremia: Status: Acute Plan This is a 81-year-old female with pertinent history of left breast cancer on anastrozole, essential hypertension, osteoporosis who presents to the emergency department for evaluation of right hip pain. # Comminuted intertrochanteric right hip fracture due to mechanical fall -pod 2 -appreciate input from Orthopedic surgery Pain management per Orthopedic surgery -STR per PT #Acute blood loss anemia -H/H stable. Above transfusion threshold # Essential hypertension- uncontrolled -Hold HCTZ indefinitely d/t hyponatremia -Amlodipine increased to 10mg daily, continue valsartan -Follow Bp #Hyponatremia- likely related to hctz use -Na improved to 134 -DC IVF. Tolearting PO. Continue fluid restrictions of 1.2L -Avoid hctz indefinitely #? Left-sided breast cancer -on anastrozole # Mixed hyperlipidemia -On statin DVT prophylaxis: lovenox DNR/DNI Cardiac diet.? Patient requires ongoing inpatient stay for orthopedic management of a trochanteric right hip fracture and hyponatremia, pending placement Time Spent With Patient Time: Total time managing care of this patient today ____ minutes. Quality Stroke Does the patient have a stroke diagnosis?: No VTE Prior VTE?: No VTE Risk Level:: Medical - moderate - high VTE Device Contraindication: Treatment Not Indicated VTE Drug Contraindication: Treatment Not Indicated
--- NOTE | 2022-08-09 14:06 | MHC.CLN ---
F/U DIET=CARDIAC, 1200 ML FLUID RESTRICTION. NO SUPPLEMENT AT THIS TIME DUE TO FLUID RESTRICTION. INTAKE VARIABLE, WITH MOST MEALS 50-100%. MONITOR WEEKLY FOR INTAKE.
[2022-08-09 14:43] VITALS: BP 124/60; PULSE 69; RESP 18; TEMP 36.6; O2SAT 97
[2022-08-09] MEDS: Losartan Potassium 50 MG TABLET 100 MG PO (15:17)
[2022-08-09] MEDS: Calcium + Vitamin D 250 MG TABLET 500 MG PO (15:18)
[2022-08-09] MEDS: Anastrozole 1 MG TABLET PO (15:18)
[2022-08-09] MEDS: HYDROmorphone HCl 1 MG/ML SYRINGE IVPUSH (15:42)
[2022-08-09 19:37] VITALS: BP 125/61; PULSE 64; RESP 18; TEMP 36.9; O2SAT 97
[2022-08-10] MEDS: 0.9 % Sodium Chloride Flush 3 ML SYRINGE IVFLUSH ×3 (00:03→15:35)
[2022-08-10 03:49] VITALS: BP 140/65; PULSE 70; RESP 18; TEMP 36.3; O2SAT 96
[2022-08-10 07:46] VITALS: BP 157/72; PULSE 71; RESP 18; TEMP 36.9; O2SAT 98
--- NOTE | 2022-08-10 07:56 | P.PNOP_ITS ---
Subjective Subjective Date of Service: 08/10/22 Interval history: POD 4 s/p Rt hip IMN No overnight events resting in bed comfortably, has been ambulating without much pain denies sob, palpitations, chest pain Physical Exam Vital Signs: Vital Signs: Last Vital Signs Temp 98.5 F 08/10/22 07:46 Pulse 71 08/10/22 07:46 Resp 18 08/10/22 07:46 BP 157/72 H 08/10/22 07:46 Pulse Ox 98 08/10/22 07:46 O2 Del Method 08/10/22 07:46 O2 Flow Rate 1 08/06/22 19:17 BMI result Body Mass Index 26.2 Const: General: cooperative, healthy appearing and no acute distress Resp: Effort & Inspection: normal respiratory effort and able to speak in com plete sentences Cardio: Rate: regular rate Peripheral pulses: Peripheral pulses 2+ throughout GI: Palpation (GI): Soft to palpation Skin: General skin exam: no rashes or lesions noted Extrem: Other: incision clean dry and intact. Adelita intact. No erythema or effusion. Calf supple nontender. Neurovascularly intact. Procedures Date of Service Date of Service: 08/10/22 Progress Note: A&P Assessment and plan (1) Intertrochanteric fracture of right femur: Status: Acute Assessment and Plan: * Continue pain mgmnt * continuelovenox for dvt ppx * continue PT / OT for Rt hip IMN * Dispo planning-cleared from ortho -f/u in office in 2 weeks Time Spent With Patient Time: Total time managing care of this patient today ____ minutes. Quality Stroke Does the patient have a stroke diagnosis?: No VTE Prior VTE?: No VTE Risk Level:: Medical - moderate - high VTE Device Contraindication: Treatment Not Indicated VTE Drug Contraindication: Treatment Not Indicated
[2022-08-10] MEDS: Enoxaparin Sodium 40 MG/0.4 ML SYRINGE SUBCUT (07:58)
[2022-08-10] MEDS: Metoprolol Succinate ER 100 MG TAB.ER.24H 200 MG PO (07:59)
[2022-08-10] MEDS: polyethylene glycoL 3350 17 GM POWD.PACK PO (07:59)
[2022-08-10] MEDS: amLODIPine Besylate 10 MG TABLET PO (07:59)
[2022-08-10 08:02] VITALS: PULSE 74; RESP 18; O2SAT 96
[2022-08-10] MEDS: Fluticasone/Vilanterol 100/25 BLST.W.DEV 1 PUFF INHALE (08:02)
--- NOTE | 2022-08-10 11:07 | PM.DS ---
DS: Providers Provider Date of Service: 08/10/22 Date of admission: 08/05/22 19:08 Date of discharge: 08/10/22 Primary care physician: Brandon Perdomo MD DS: Diagnosis Discharge Diagnosis (1) Intertrochanteric fracture of right femur: Status: Acute (2) Hyponatremia: Status: Acute (3) Acute blood loss anemia: Status: Acute (4) Essential hypertension: Status: Acute DS: Summary Hospital Course Hospital Course: from admission H+P by hospitalist Andrea Wood, 08/05/22: This is a 81-year-old female with pertinent history of left breast cancer on anastrozole, essential hypertension, osteoporosis who presents to the emergency department for evaluation of right hip pain.? 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 Patient fell and not right side over her right hip and also hit her head.? Denies loss of consciousness.? No jerking movement of extremities, tongue bite, urinary or bowel incontinence.? Patient denies fever, chills, chest discomfort, palpitations, shortness of breath, abdominal pain, changes in urinary or bowel habits. In the emergency department, imaging with community and intertrochanteric right hip fracture.? Orthopedic surgery was consulted. She was admitted to the medical-surgical floor and underwent intramedullary nailing of the right femur on 08/06/22. She was placed on enoxaparin for VTE prophylaxis and should continue this for 6 weeks posopteratively. She had acute blood loss anemia with hemoglobin stabilizing around 8.3, not requiring transfusion. HCTZ was discontinued due to hyponatremia with improvement in sodium level; to compensate for uncontrolled hypertension, amlodipine was increased from 5 to 10 mg/d; metoprolol and losartan were continued. She was discharged to [place] for acute rehabilitation. Time Spent with Patient Time attestation: Total time managing care of this patient today __35__ minutes. Discharge coordination time: Greater than 30 minutes Quality: Stroke Does the patient have a stroke diagnosis?: No Physical Exam Vital Signs: Vital Signs: Last Vital Signs Temp 98.5 F 08/10/22 07:46 Pulse 74 08/10/22 08:02 Resp 18 08/10/22 08:02 BP 157/72 H 08/10/22 07:46 Pulse Ox 98 08/10/22 07:46 O2 Del Method 08/10/22 07:46 O2 Flow Rate 1 08/06/22 19:17 BMI result Body Mass Index 26.2 Gen: in no acute distress HEENT: sclera anicteric, moist mucus membranes Neck: supple Lungs: clear to auscultation bilaterally Heart: regular rate and rhythm, no murmurs Abd: soft, non-tender, non-distended Ext: no edema, R femur dressings dry Skin: warm/well-perfused Neuro: alert and oriented x3, no focal findings Psych: appropriate affect DS: Data Data Completed and Pending Completed studies during hospitalization [Text1]: Laboratory Results WBC 10.2 X10*3/uL (4.8-10.8) 08/08/22 05:24 RBC 2.67 X10*6/uL (4.20-5.50) L 08/08/22 05:24 Hgb 8.3 g/dl (12.0-16.0) L 08/08/22 05:24 Hct 23.7 % (37.0-47.0) L 08/08/22 05:24 MCV 88.8 fL (80.0-98.0) 08/08/22 05:24 MCH 31.1 pg (27.0-33.0) 08/08/22 05:24 MCHC 35.0 g/dl (31.0-35.0) 08/08/22 05:24 RDW 12.3 % (11.0-16.0) 08/08/22 05:24 Plt Count 230 X10*3/uL (160-400) 08/08/22 05:24 MPV 10.5 fL (9.4-12.3) 08/08/22 05:24 Immature Gran % (Auto) 0.6 % (0.0-0.4) H 08/08/22 05:24 Neut % (Auto) 81.8 % (45-73) H 08/08/22 05:24 Lymph % (Auto) 8.2 % (20-40) L 08/08/22 05:24 Lucas % (Auto) 8.0 % (2-11) 08/08/22 05:24 Eos % (Auto) 1.2 % (0-4) 08/08/22 05:24 Baso % (Auto) 0.2 % (0-2) 08/08/22 05:24 Lymph # (Auto) 0.8 X10*3/uL (1.2-4.9) L 08/08/22 05:24 Lucas # (Auto) 0.8 X10*3/uL (0.1-1.2) 08/08/22 05:24 Eos # (Auto) 0.1 X10*3/uL (0.0-0.4) 08/08/22 05:24 Baso # (Auto) 0.0 X10*3/uL (0.0-0.2) 08/08/22 05:24 Abs Immat Gran (auto) 0.06 X10*3/uL (0.00-0.03) H 08/08/22 05:24 Absolute Neuts (auto) 8.3 x10*3/uL (2.0-8.3) 08/08/22 05:24 Absolute Nucleated RBC 0.000 X10*3/uL (0.0-0.012) 08/08/22 05:24 Nucleated RBC % (auto) 0.0 /100WBC (0.0-0.2) 08/08/22 05:24 Smear Tech's Comments VERIFIED 08/06/22 05:49 PT 11.5 SEC (10.0-13.1) 08/05/22 15:23 INR 1.0 (0.9-1.1) 08/05/22 15:23 APTT 31.5 SEC (26.0-36.4) 08/05/22 15:23 Sodium 134 mmol/L (135-145) L 08/09/22 05:51 Potassium 3.5 mmol/L (3.3-5.1) 08/09/22 05:51 Chloride 101 mmol/L (96-108) 08/09/22 05:51 Carbon Dioxide 24 mmol/L (22-29) 08/09/22 05:51 Anion Gap 13 (12-20) 08/09/22 05:51 BUN 9 mg/dL (9-16) 08/09/22 05:51 Creatinine 0.71 mg/dL (0.5-1.4) 08/09/22 05:51 Estim Creat Clear Calc 63.8 08/09/22 05:51 Estimated GFR > 60 08/09/22 05:51 Random Glucose 103 mg/dL (60-115) 08/09/22 05:51 Osmolality 269 mosm/kg (281-305) L 08/08/22 05:25 Calcium 8.4 mg/dL (8.4-10.2) 08/09/22 05:51 Magnesium 1.9 mg/dL (1.6-2.6) 08/05/22 15:23 Total Bilirubin 0.9 mg/dL (0.0-1.0) 08/05/22 15:23 AST 17 U/L (5-31) 08/05/22 15:23 ALT 22 U/L (0-31) 08/05/22 15:23 Alkaline Phosphatase 79 U/L (39-117) 08/05/22 15:23 Total Protein 6.4 g/dL (6.5-8.0) L 08/05/22 15:23 Albumin 4.1 g/dL (3.5-5.0) 08/05/22 15:23 Urine Color Yellow 08/08/22 09:25 Urine Appearance Clear 08/08/22 09:25 Urine pH 5.5 (5.0-9.0) 08/08/22 09:25 Ur Specific Cornelia <= 1.005 (1.005-1.025) 08/08/22 09:25 Urine Protein Negative mg/dL (Neg-Trace) 08/08/22 09:25 Urine Glucose (UA) Negative mg/dL (Negative) 08/08/22 09:25 Urine Ketones Trace mg/dL (Negative) 08/08/22 09:25 Urine Blood Negative (Negative) 08/08/22 09:25 Urine Nitrite Negative (Negative) 08/08/22 09:25 Ur Leukocyte Esterase Negative (Negative) 08/08/22 09:25 Urine Osmolality 442 mosm/kg (373-1093) 08/07/22 18:35 Ur Random Sodium 74.0 mmol/L 08/07/22 18:35 COVID-19 (JYOTI) Negative (Negative) 08/05/22 16:45 COVID-19 Clin Com See Note 08/05/22 16:45 Blood Type O Positive 08/06/22 06:36 Antibody Screen NEGATIVE 08/06/22 06:36 Impressions Chest X-Ray 08/05/22 14:17 IMPRESSION: No acute intrathoracic disease. Hip/Pelvis X-Ray 08/05/22 14:17 IMPRESSION: Comminuted intertrochanteric right hip fracture. Degenerative changes in the medial compartment of the right knee Knee X-Ray 08/05/22 14:17 IMPRESSION: Comminuted intertrochanteric right hip fracture. Degenerative changes in the medial compartment of the right knee Cervical Spine CT 08/05/22 14:46 IMPRESSION: * No CT evidence of cervical spine fracture. * Advanced degenerative disc disease at C2-C3, C3-C4, C6-C7. * Degenerative disc disease at C4-C5, there is developed osteophyte from the endplate causing mild stenosis of the right foramen. 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 * Advanced facet joints arthropathy at multiple levels right more than left. Head CT 08/05/22 14:46 IMPRESSION: * No CT evidence of intracranial space-occupying mass, there is no CT evidence of intracranial bleed. * Diffuse deep white matter and periventricular hypoattenuation, diffuse distribution suggesting chronic microvascular angiopathy. Guidance Fluoroscopy 08/06/22 10:16 IMPRESSION: Status post open reduction internal fixation right hip fracture. Discharge Plan Discharge Anticipated Discharge Date/Time: 08/10/22 14:56 Patient Disposition: Xfer Inpatient Rehab Fac Discharge Diagnosis: # Comminuted intertrochanteric right hip fracture due to mechanical fall # Acute blood loss anemia # Essential hypertension # Hyponatremia Referrals: Gaye Grady PA-C [Physician Direct Support Professional Caregiver] - 1 Week (TuesdayAugust AT 10:15AM WITH [place]) Brandon Perdomo MD [Primary Care Provider] - 1 Week Discharge Medications: New enoxaparin 40 mg/0.4 mL Syringe 40 mg subcut Q24H Qty: 38 0RF amlodipine 10 mg Tablet 10 mg PO DAILY@0800 Qty: 30 0RF Protocol: Hold for SBP< HOLD for SBP < : 90 oxycodone 5 mg tablet 5 mg PO Q8H PRN (Reason: severe pain (scale score 7-10)) Qty: 9 0RF Rx Instructions: Partial Fill upon patient request. polyethylene glycol 3350 17 gram Powder In Packet 17 g PO DAILY Qty: 30 0RF Continued anastrozole 1 mg tablet 1 tab PO DAILY@1600 fluticasone propion-salmeterol [Wixela Inhub] 250-50 mcg/dose blister with device 1 puff inhalation BID@0800,1600 metoprolol succinate 200 mg tablet extended release 24 hr 1 tab PO DAILY@0800 alendronate 70 mg tablet 1 tab PO SEYMOUR psyllium Packet 1 packet PO DAILY@0800 Rx Instructions: mix into at least 8 oz of water or juice before administering calcium carbonate-vitamin D3 600 mg-5 mcg (200 unit) Tablet 1 tab PO DAILY@1600 lovastatin 10 mg tablet 1 tab PO DAILY@1200 losartan 100 mg tablet 1 tab PO DAILY@1600 Discontinued amlodipine 5 mg tablet 1 tab PO DAILY@0800 hydrochlorothiazide 25 mg tablet 1 tab PO DAILY@0800 Diet: Low salt diet Activity on Discharge: As tolerated Stand Alone Forms: Patient Portal Discharge page Care Plan Goals: Recover from fracture Avoid hyponatremia Control blood pressure Health Concerns: # Comminuted intertrochanteric right hip fracture due to mechanical fall # Acute blood loss anemia # Essential hypertension # Hyponatremia Plan of Treatment: Gait training, strengthening, ADLs Continue lovenox x6 weeks Keep dressing clean,dry and intact-no showering or tub baths Follow up with Orthopedics in 2 weeks STOP HYDROCHLOROTHIAZIDE REPEAT BMP IN 1 WEEK INCREASE AMLODIPINE TO 10 MG/D Assessment: See Discharge Summary.
[2022-08-10] MEDS: Pravastatin Sodium 10 MG TABLET PO (11:22)
[2022-08-10] MEDS: Acetaminophen 325 MG TABLET 650 MG PO (11:22)
--- NOTE | 2022-08-10 12:40 | P.PNIM_ITS ---
Subjective Subjective Date of Service: 08/10/22 Interval History: pain controlled insurance declined AIR despite pt's excellent pre-injury functional status and excellent rehab potential Review of Systems Review of Systems: Yes all other systems are reviewed and are negative Physical Exam Vital Signs: Vital Signs: Last Vital Signs Temp 98.5 F 08/10/22 07:46 Pulse 74 08/10/22 08:02 Resp 18 08/10/22 08:02 BP 157/72 H 08/10/22 07:46 Pulse Ox 98 08/10/22 07:46 O2 Del Method 08/10/22 07:46 O2 Flow Rate 1 08/06/22 19:17 BMI result Body Mass Index 26.2 Gen: in no acute distress HEENT: sclera anicteric, moist mucus membranes Neck: supple Lungs: clear to auscultation bilaterally Heart: regular rate and rhythm, no murmurs Abd: soft, non-tender, non-distended Ext: no edema Skin: warm/well-perfused Neuro: alert and oriented x3, no focal findings Psych: appropriate affect Objective Data Active Medications Acetaminophen (Acetaminophen 325 Mg Tablet) 650 mg PO Q6H PRN PRN Reason: Pain, Mild (Pain Scale 1-3) Last Admin: 08/10/22 11:22 Dose: 650 mg Documented By: FREDY Amlodipine Besylate (Amlodipine Besylate 10 Mg Tablet) 10 mg PO DAILY@0800 [facility]; Protocol Last Admin: 08/10/22 07:59 Dose: 10 mg Documented By: FREDY Anastrozole (Anastrozole 1 Mg Tablet) 1 mg PO DAILY@1600 [facility] Last Admin: 08/09/22 15:18 Dose: 1 mg Documented By: SARBJIT Calcium Carbonate/Cholecalciferol (Calcium + Vitamin D 250 Mg Tablet) 500 mg PO DAILY@1600 [facility] Last Admin: 08/09/22 15:18 Dose: 500 mg Documented By: SARBJIT Enoxaparin Sodium (Enoxaparin Sodium 40 Mg/0.4 Ml Syringe) 40 mg SUBCUT Q24H [facility] Last Admin: 08/10/22 07:58 Dose: 40 mg Documented By: FREDY Fluticasone/Vilanterol (Fluticasone/Vilanterol 100/25 Blst.W.Dev) 1 puff INHALE DAILY [facility] Last Admin: 08/10/22 08:02 Dose: 1 puff Documented By: MALIA Hydromorphone HCl (Hydromorphone Hcl 1 Mg/Ml Syringe) 1 mg IVPUSH Q4H PRN; Protocol PRN Reason: Pain, Severe (Pain Scale 7-10) Last Admin: 08/09/22 15:42 Dose: 1 mg Documented By: SARBJIT Cefazolin Sodium/Dextrose (Ancef) 2 gm in 50 mls @ 100 mls/hr IV POSTOP [facility] Last Infusion: 08/06/22 17:41 Dose: 0 mls/hr Documented By: FREDY Losartan Potassium (Losartan Potassium 50 Mg Tablet) 100 mg PO DAILY@1600 [facility]; Protocol Last Admin: 08/09/22 15:17 Dose: 100 mg Documented By: SARBJIT Melatonin (Melatonin 3 Mg Tablet) 6 mg PO BEDTIME PRN PRN Reason: Insomnia Metoprolol Succinate (Metoprolol Succinate Er 100 Mg Tab.Er.24h) 200 mg PO DAILY@0800 [facility]; Protocol Last Admin: 08/10/22 07:59 Dose: 200 mg Documented By: FREDY Ondansetron HCl (Ondansetron Hcl 4 Mg/2 Ml Vial) 4 mg IVPUSH Q8H PRN PRN Reason: Nausea and Vomiting Last Admin: 08/05/22 19:56 Dose: 4 mg Documented By: HUYEN Pharmacy Consult (Consult Rx Perform Med Rec) 1 each MISCELLANE ONCE PRN PRN Reason: Consult order Polyethylene Glycol (Polyethylene Glycol 3350 17 Gm Powd.Pack) 17 gm PO DAILY [facility] Last Admin: 08/10/22 07:59 Dose: 17 gm Documented By: FREDY Pravastatin Sodium (Pravastatin Sodium 10 Mg Tablet) 10 mg PO DAILY@1200 [facility] Last Admin: 08/10/22 11:22 Dose: 10 mg Documented By: FREDY Psyllium Hydrophilic Mucilloid (Psyllium Seed 3.4 Gm Powd.Pack) 3.4 gm PO DAILY@0800 [facility] Last Admin: 08/10/22 07:59 Dose: 3.4 gm Documented By: FREDY Sodium Chloride (0.9 % Sodium Chloride Flush 3 Ml Syringe) 3 ml IVFLUSH QSHIFT [facility] Last Admin: 08/10/22 08:03 Dose: 3 ml Documented By: FREDY Labs 08/08/22 05:24 08/09/22 05:51 Assessment and Plan (1) Intertrochanteric fracture of right femur: Status: Acute (2) Hyponatremia: Status: Acute Plan hospital d#6 81-year-old female with pertinent history of left breast cancer on anastrozole, essential hypertension, osteoporosis who presents to the emergency department for evaluation of right hip pain, found to have R hip fx # comminuted intertrochanteric right hip fracture due to mechanical fall - POD#4 IMN - awaiting rehab placement - VTE ppx: LMWH x 6 wk postop # acute blood loss anemia - H+H stable; above transfusion threshold # essential hypertension - d/c HCTZ due to hypoNa - increased amlodipine 5->10 mg/d - continue losartan # hypoNa - likely due to HCTZ- discontinued - release fluid restriction - repeat BMP in 1 wk #?hx breast CA - on anastrozole # HLD - on statin # VTE ppx: LMWH # dispo: family appealing AIR declination In my clinical judgment, the patient requires continued inpatient hospitalization for the following reasons: placement in question Time Spent With Patient Time: Total time managing care of this patient today _40___ minutes. Quality Stroke Does the patient have a stroke diagnosis?: No VTE Prior VTE?: No VTE Risk Level:: Medical - moderate - high VTE Device Contraindication: Treatment Not Indicated VTE Drug Contraindication: Treatment Not Indicated
--- NOTE | 2022-08-10 12:52 | MHC.CM.PN ---
CM CONTACTED PT'S NIECE/HCP LISANDRO AT NUMBER ON FILE TO DISCUSS DISPO PT WAS DECLINED ACUTE REHAB BY INSURANCE, LISANDRO REPORTS SHE WILL CALL [employer] TO APPEAL THE ACUTE REHAB DECISION, LISANDRO IS AWARE [facility] IS OFFERING PT A BED HOWEVER LISANDRO WOULD LIKE TO WAIT FOR APPEAL, CM WILL CONT TO FOLLOW.
[2022-08-10 15:31] VITALS: BP 145/65; PULSE 69; O2SAT 96
[2022-08-10] MEDS: Anastrozole 1 MG TABLET PO (15:33)
[2022-08-10] MEDS: Losartan Potassium 50 MG TABLET 100 MG PO (15:33)
[2022-08-10] MEDS: Calcium + Vitamin D 250 MG TABLET 500 MG PO (15:33)
[2022-08-10 15:56] VITALS: BP 148/65; PULSE 68; RESP 18; TEMP 36.7; O2SAT 97
[2022-08-10 19:36] VITALS: BP 158/72; PULSE 69; RESP 16; TEMP 36.6; O2SAT 98
[2022-08-11 02:40] VITALS: BP 150/70; PULSE 74; RESP 18; TEMP 36.7; O2SAT 96
[2022-08-11 07:18] VITALS: BP 156/71; PULSE 77; RESP 18; TEMP 36.7; O2SAT 96
[2022-08-11] MEDS: Fluticasone/Vilanterol 100/25 BLST.W.DEV 1 PUFF INHALE (07:30)
[2022-08-11 07:31] VITALS: PULSE 72; RESP 18; O2SAT 96
[2022-08-11] MEDS: amLODIPine Besylate 10 MG TABLET PO (09:18)
[2022-08-11] MEDS: polyethylene glycoL 3350 17 GM POWD.PACK PO (09:18)
[2022-08-11] MEDS: Metoprolol Succinate ER 100 MG TAB.ER.24H 200 MG PO (09:18)
[2022-08-11] MEDS: Enoxaparin Sodium 40 MG/0.4 ML SYRINGE SUBCUT (09:18)
[2022-08-11] MEDS: Acetaminophen 325 MG TABLET 650 MG PO (10:29)
--- NOTE | 2022-08-11 12:11 | MHC.CM.PN ---
EMR REVIEWED, CM SPOKE W/PT'S NIECE/HCP LISANDRO WHO REPORTS SHE SPOKE W/[employer] AND WILL NEED TO GET A LETTER FROM PT'S PCP DESCRIBING WHY PT NEEDS ACUTE REHAB INSTEAD OF STR, LISANDRO WOULD LIKE TO WAIT AT LEAST UNTIL TOMORROW FOR ANSWER ON APPEAL. LISANDRO AWARE THAT PT COULD LOSE OTHER BED OFFERS WAITING FOR APPEAL HOWEVER LISANDRO STILL WANTS TO WAIT FOR APPEAL DECISION, CM WILL CONT TO FOLLOW.
--- NOTE | 2022-08-11 12:38 | MHC.CM.PN ---
CM RECEIVED A CALL BACK FROM PT'S HCP/NIECE LISANDRO WHO REQUESTED CM CONTACT [facility] AND ASK THEM TO GO FOR AUTH SHE STATES, I DON'T WANT TO DRAG THIS OUT FOREVER , LISANDRO REPORTS SHE IS AGREEABLE TO D/C LATER TODAY IF AUTH IS OBTAINED, CM WILL CONT TO FOLLOW.
--- NOTE | 2022-08-11 13:40 | P.PNIM_ITS ---
Subjective Subjective Date of Service: 08/11/22 Interval History: pain controlled appealing denial of AIR Review of Systems Review of Systems: Yes all other systems are reviewed and are negative Physical Exam Vital Signs: Vital Signs: Last Vital Signs Temp 98.1 F 08/11/22 07:18 Pulse 72 08/11/22 07:31 Resp 18 08/11/22 07:31 BP 156/71 H 08/11/22 07:18 Pulse Ox 96 08/11/22 07:18 O2 Del Method 08/11/22 07:18 O2 Flow Rate 1 08/06/22 19:17 BMI result Body Mass Index 26.2 Const: Other: Gen: in no acute distress HEENT: sclera anicteric, moist mucus membranes Neck: supple Lungs: clear to auscultation bilaterally Heart: regular rate and rhythm, no murmurs Abd: soft, non-tender, non-distended Ext: no edema Skin: warm/well-perfused Neuro: alert and oriented x3, no focal findings Psych: appropriate affect Objective Data Active Medications Acetaminophen (Acetaminophen 325 Mg Tablet) 650 mg PO Q6H PRN PRN Reason: Pain, Mild (Pain Scale 1-3) Last Admin: 08/11/22 10:29 Dose: 650 mg Documented By: ANKUR Amlodipine Besylate (Amlodipine Besylate 10 Mg Tablet) 10 mg PO DAILY@0800 [facility]; Protocol Last Admin: 08/11/22 09:18 Dose: 10 mg Documented By: ANKUR Anastrozole (Anastrozole 1 Mg Tablet) 1 mg PO DAILY@1600 [facility] Last Admin: 08/10/22 15:33 Dose: 1 mg Documented By: RFEDY Calcium Carbonate/Cholecalciferol (Calcium + Vitamin D 250 Mg Tablet) 500 mg PO DAILY@1600 [facility] Last Admin: 08/10/22 15:33 Dose: 500 mg Documented By: FREDY Enoxaparin Sodium (Enoxaparin Sodium 40 Mg/0.4 Ml Syringe) 40 mg SUBCUT Q24H [facility] Last Admin: 08/11/22 09:18 Dose: 40 mg Documented By: ANKUR Fluticasone/Vilanterol (Fluticasone/Vilanterol 100/25 Blst.W.Dev) 1 puff INHALE DAILY [facility] Last Admin: 08/11/22 07:30 Dose: 1 puff Documented By: MALIA Cefazolin Sodium/Dextrose (Ancef) 2 gm in 50 mls @ 100 mls/hr IV POSTOP [facility] Last Infusion: 08/06/22 17:41 Dose: 0 mls/hr Documented By: FREDY Losartan Potassium (Losartan Potassium 50 Mg Tablet) 100 mg PO DAILY@1600 [facility]; Protocol Last Admin: 08/10/22 15:33 Dose: 100 mg Documented By: FREDY Melatonin (Melatonin 3 Mg Tablet) 6 mg PO BEDTIME PRN PRN Reason: Insomnia Metoprolol Succinate (Metoprolol Succinate Er 100 Mg Tab.Er.24h) 200 mg PO DAILY@0800 [facility]; Protocol Last Admin: 08/11/22 09:18 Dose: 200 mg Documented By: ANKUR Ondansetron HCl (Ondansetron Hcl 4 Mg/2 Ml Vial) 4 mg IVPUSH Q8H PRN PRN Reason: Nausea and Vomiting Last Admin: 08/05/22 19:56 Dose: 4 mg Documented By: HUYEN Pharmacy Consult (Consult Rx Perform Med Rec) 1 each MISCELLANE ONCE PRN PRN Reason: Consult order Polyethylene Glycol (Polyethylene Glycol 3350 17 Gm Powd.Pack) 17 gm PO DAILY [facility] Last Admin: 08/11/22 09:18 Dose: 17 gm Documented By: ANKUR Pravastatin Sodium (Pravastatin Sodium 10 Mg Tablet) 10 mg PO DAILY@1200 [facility] Last Admin: 08/10/22 11:22 Dose: 10 mg Documented By: FREDY Psyllium Hydrophilic Mucilloid (Psyllium Seed 3.4 Gm Powd.Pack) 3.4 gm PO DAILY@0800 [facility] Last Admin: 08/11/22 09:18 Dose: 3.4 gm Documented By: ANKUR Sodium Chloride (0.9 % Sodium Chloride Flush 3 Ml Syringe) [facility] Last Admin: 08/11/22 09:13 Dose: Not Given Documented By: ANKUR Non-Admin Reason: No Access Labs 08/08/22 05:24 08/09/22 05:51 Assessment and Plan (1) Intertrochanteric fracture of right femur: Status: Acute (2) Hyponatremia: Status: Acute Plan hospital d#7 81-year-old female with pertinent history of left breast cancer on anastrozole, essential hypertension, osteoporosis who presents to the emergency department for evaluation of right hip pain, found to have R hip fx # comminuted intertrochanteric right hip fracture due to mechanical fall - POD#5 IMN - awaiting rehab placement - VTE ppx: LMWH x 6 wk postop # acute blood loss anemia - H+H stable; above transfusion threshold # essential hypertension - d/c HCTZ due to hypoNa - increased amlodipine 5->10 mg/d - continue losartan # hypoNa - likely due to HCTZ- discontinued - release fluid restriction - repeat BMP in 1 wk #?hx breast CA - on anastrozole # HLD - on statin # VTE ppx: LMWH # dispo: family appealing AIR declination In my clinical judgment, the patient requires continued inpatient hospitalization for the following reasons: placement in question Time Spent With Patient Time: Total time managing care of this patient today ___25_ minutes. Quality Stroke Does the patient have a stroke diagnosis?: No VTE Prior VTE?: No VTE Risk Level:: Medical - moderate - high VTE Device Contraindication: Treatment Not Indicated VTE Drug Contraindication: Treatment Not Indicated
[2022-08-11] MEDS: Pravastatin Sodium 10 MG TABLET PO (13:57)
[2022-08-11 15:08] VITALS: BP 124/63; PULSE 70; RESP 16; TEMP 36.4; O2SAT 96
[2022-08-11] MEDS: Losartan Potassium 50 MG TABLET 100 MG PO (16:06)
[2022-08-11] MEDS: Calcium + Vitamin D 250 MG TABLET 500 MG PO (16:06)
[2022-08-11] MEDS: Anastrozole 1 MG TABLET PO (16:07)
[2022-08-11 19:03] VITALS: BP 119/58; PULSE 75; RESP 16; TEMP 37; O2SAT 97
[2022-08-12] MEDS: 0.9 % Sodium Chloride Flush 3 ML SYRINGE IVFLUSH ×2 (00:05→09:32)
[2022-08-12 03:51] VITALS: BP 156/69; PULSE 70; RESP 16; TEMP 36.2; O2SAT 96
[2022-08-12 04:00] VITALS: BP 156/69; PULSE 70; RESP 18; TEMP 36.6; O2SAT 96
[2022-08-12] MEDS: Fluticasone/Vilanterol 100/25 BLST.W.DEV 1 PUFF INHALE (07:55)
[2022-08-12 07:57] VITALS: PULSE 68; RESP 15; O2SAT 93
[2022-08-12 08:00] VITALS: BP 151/67; PULSE 76; RESP 16; TEMP 36.4; O2SAT 96
--- NOTE | 2022-08-12 08:59 | MHC.CM.PN ---
Addendum entered by Linette Hamilton RN 08/12/22 10:43: IMM 08/12/22, PT'S HCP/NIECE LISANDRO NOTIFIED PER PT REQUEST. Original Note: CM RECEIVED MESSAGE FROM [facility] THAT THEY HAVE AUTH AND PT WILL D/C TO [facility] AT 12:30PM W/[facility] FOR BLS TRANSPORT
[2022-08-12] MEDS: Metoprolol Succinate ER 100 MG TAB.ER.24H 200 MG PO (09:32)
[2022-08-12] MEDS: amLODIPine Besylate 10 MG TABLET PO (09:32)
[2022-08-12] MEDS: polyethylene glycoL 3350 17 GM POWD.PACK PO (09:33)
[2022-08-12] MEDS: Enoxaparin Sodium 40 MG/0.4 ML SYRINGE SUBCUT (09:33)
[2022-08-12 10:12] LABS: COVID-19 Test Negative (Negative); IDNOW Serial# BCCEAD1C
--- NOTE | 2022-08-12 11:16 | PM.DS ---
DS: Providers Provider Date of Service: 08/12/22 Date of admission: 08/05/22 19:08 Primary care physician: Brandon Perdomo MD DS: Diagnosis Discharge Diagnosis (1) Intertrochanteric fracture of right femur: Status: Acute (2) Hyponatremia: Status: Acute (3) Acute blood loss anemia: Status: Acute DS: Summary Hospital Course Hospital Course: from admission H+P by hospitalist Andrea Wood, 08/05/22: This is a 81-year-old female with pertinent history of left breast cancer on anastrozole, essential hypertension, osteoporosis who presents to the emergency department for evaluation of right hip pain.? 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 Patient fell and not right side over her right hip and also hit her head.? Denies loss of consciousness.? No jerking movement of extremities, tongue bite, urinary or bowel incontinence.? Patient denies fever, chills, chest discomfort, palpitations, shortness of breath, abdominal pain, changes in urinary or bowel habits. In the emergency department, imaging with community and intertrochanteric right hip fracture.? Orthopedic surgery was consulted. Hospital course She was admitted to the medical-surgical floor and underwent intramedullary nailing of the right femur on 08/06/22. She was placed on enoxaparin for VTE prophylaxis and should continue this for 6 weeks posopteratively. She had acute blood loss anemia with hemoglobin stabilizing around 8.3, not requiring transfusion. HCTZ was discontinued due to hyponatremia with improvement in sodium level; to compensate for uncontrolled hypertension, amlodipine was increased from 5 to 10 mg/d; metoprolol and losartan were continued. She was discharged to SNF for physical rehabilitation. Time Spent with Patient Time attestation: Total time managing care of this patient today ____ minutes. Discharge coordination time: Greater than 30 minutes Quality: Safe Use of Opioids Does Pt have an Active Cancer Diagnosis on the Problem List?: No Quality: Stroke Does the patient have a stroke diagnosis?: No Physical Exam Vital Signs: Vital Signs: Last Vital Signs Temp 97.6 F 08/12/22 08:00 Pulse 76 08/12/22 08:00 Resp 16 08/12/22 08:00 BP 151/67 H 08/12/22 08:00 Pulse Ox 96 08/12/22 08:00 O2 Del Method 08/12/22 04:00 O2 Flow Rate 1 08/06/22 19:17 BMI result Body Mass Index 26.2 Const: Other: Gen: in no acute distress HEENT: sclera anicteric, moist mucus membranes Neck: supple Lungs: clear to auscultation bilaterally Heart: regular rate and rhythm, no murmurs Abd: soft, non-tender, non-distended Ext: no edema Skin: warm/well-perfused Neuro: alert and oriented x3, no focal findings Psych: appropriate affect DS: Data Data Completed and Pending Labs on day of discharge: Laboratory Results - last 24 hr 08/12/22 09:36 COVID-19 (JYOTI) Negative COVID-19 Clin Com See Note Imaging Hip XR: Radiologist's impression: ITS Impressions Chest X-Ray 08/05/22 14:17 IMPRESSION: No acute intrathoracic disease. Hip/Pelvis X-Ray 08/05/22 14:17 IMPRESSION: Comminuted intertrochanteric right hip fracture. Degenerative changes in the medial compartment of the right knee Knee X-Ray 08/05/22 14:17 IMPRESSION: Comminuted intertrochanteric right hip fracture. Degenerative changes in the medial compartment of the right knee Cervical Spine CT 08/05/22 14:46 IMPRESSION: * No CT evidence of cervical spine fracture. * Advanced degenerative disc disease at C2-C3, C3-C4, C6-C7. * Degenerative disc disease at C4-C5, there is developed osteophyte from the endplate causing mild stenosis of the right foramen. 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 * Advanced facet joints arthropathy at multiple levels right more than left. Head CT 08/05/22 14:46 IMPRESSION: * No CT evidence of intracranial space-occupying mass, there is no CT evidence of intracranial bleed. * Diffuse deep white matter and periventricular hypoattenuation, diffuse distribution suggesting chronic microvascular angiopathy. Guidance Fluoroscopy 08/06/22 10:16 IMPRESSION: Status post open reduction internal fixation right hip fracture. Discharge Plan Discharge Anticipated Discharge Date/Time: 08/10/22 14:56 Patient Disposition: Xfer Inpatient Rehab Fac Discharge Diagnosis: # Comminuted intertrochanteric right hip fracture due to mechanical fall # Acute blood loss anemia # Essential hypertension # Hyponatremia Referrals: Gaye Grady PA-C [Physician Demand Inspector] - 1 Week (TuesdayAugust AT 10:15AM WITH Bar) Brandon Perdomo MD [Primary Care Provider] - 1 Week Discharge Medications: New enoxaparin 40 mg/0.4 mL Syringe 40 mg subcut Q24H Qty: 38 0RF amlodipine 10 mg Tablet 10 mg PO DAILY@0800 Qty: 30 0RF Protocol: Hold for SBP< HOLD for SBP < : 90 oxycodone 5 mg tablet 5 mg PO Q8H PRN (Reason: severe pain (scale score 7-10)) Qty: 9 0RF Rx Instructions: Partial Fill upon patient request. polyethylene glycol 3350 17 gram Powder In Packet 17 g PO DAILY Qty: 30 0RF Continued anastrozole 1 mg tablet 1 tab PO DAILY@1600 fluticasone propion-salmeterol [Wixela Inhub] 250-50 mcg/dose blister with device 1 puff inhalation BID@0800,1600 metoprolol succinate 200 mg tablet extended release 24 hr 1 tab PO DAILY@0800 alendronate 70 mg tablet 1 tab PO SEYMOUR psyllium Packet 1 packet PO DAILY@0800 Rx Instructions: mix into at least 8 oz of water or juice before administering calcium carbonate-vitamin D3 600 mg-5 mcg (200 unit) Tablet 1 tab PO DAILY@1600 lovastatin 10 mg tablet 1 tab PO DAILY@1200 losartan 100 mg tablet 1 tab PO DAILY@1600 Discontinued amlodipine 5 mg tablet 1 tab PO DAILY@0800 hydrochlorothiazide 25 mg tablet 1 tab PO DAILY@0800 Discharge Orders: Discharge Order (Routine); Ordered 08/12/22 Ordered By: Darrian Mike Diet: Low salt diet Activity on Discharge: As tolerated Stand Alone Forms: Patient Portal Discharge page Other Ambulatory Orders: Basic Metabolic Panel (Routine) Timeframe: 1 Week Facility: [facility] - Location: Laboratory Ordered By: Ana Maria Burroughs Care Plan Goals: Recover from fracture Avoid hyponatremia Control blood pressure Health Concerns: # Comminuted intertrochanteric right hip fracture due to mechanical fall # Acute blood loss anemia # Essential hypertension # Hyponatremia Plan of Treatment: Gait training, strengthening, ADLs Continue lovenox x6 weeks Keep dressing clean,dry and intact-no showering or tub baths Follow up with Orthopedics in 2 weeks STOP HYDROCHLOROTHIAZIDE REPEAT BMP IN 1 WEEK INCREASE AMLODIPINE TO 10 MG/D Assessment: See Discharge Summary.
[2022-08-12] MEDS: Pravastatin Sodium 10 MG TABLET PO (11:54)
--- NOTE | 2022-08-30 17:19 | P.OP_ITS ---
Operative Note Operative Note Date of Service: 08/06/22 Narrative: Date of Service: 08/06/22 Pre-op diagnosis: right hip IT fx Post-op diagnosis: same Procedure: RIght hip IMN Implants: [place] 125 deg [id number] imn with 105 mm hip screw and 37.5 distal interlock Surgeon: Mark Casiano MD Anesthesia: GLMA and local Was an Educational Speech Language Clinician used for this Procedure?: No Estimated blood loss (mL): 100 IV fluids (mL): 800 Condition: stable Disposition: PACU Procedure in detail: Patient was brought to the operating room and prepped and draped in standard sterile fashion. Time-out was called to identify proper site procedure proper surgeon and IV antibiotics per weight were administered. She was positioned on the fracture table and a traction and slight internal rotation were performed and biplanar fluoroscopy confirmed initial fracture reduction. I then made a stab incision proximal to the greater trochanter in using a guidewire made a entry point just lateral to the tip of the greater trochanter and placed a guidewire into the femoral metadiaphysis. I then over-reamed with 15 mm Reamer placed my ball-tip guidewire down distally in the femur and measured my length. I selected a 125 deg [id number] imn nail and reamed up to a 13. I then placed the nail. I then turned my attention to the hip screw where I used a guidewire and a tip apex distance of less than 1.5 measured my hip screw. I then pre drilled and placed a with 105 mm hip screw using biplanar fluoroscopy. Once I was satisfied with the position of the hip screw I turned my attention to the distal aspect of the nail. Using perfect [place] technique I placed 1 static 37.5 distal interlock screw using standard AO technique. I then removed all I then placed my set screw proximally and removed all extraneous instrumentation. Final biplanar radiographs were taken. I was satisfied with the position of the hardware and the fracture reduction. I think copiously irrigated closed with absorbable sutures eulalia and injected 30 mL of into the area of the incisions. Traction was let down patient was placed in sterile dressing awakened from anesthesia brought to recovery room stable condition there were no known complications.
== END 2022-08-12 14:51 | DRG 481 ==
LOC: HO.ED 18:40 → HO.EDOVER 19:12 → HO.S3 08-06 11:16
PROVIDERS: Family Medicine; Orthopaedic Surgery; Physician Assistant; Physician Assistant Medical; Admitting Provider Student in an Organized Health Care Education/Training Program; Emergency Provider Emergency Medicine; PCP Family Medicine; Visit Provider Student in an Organized Health Care Education/Training Program
PROC: 0QS636Z Reposition Right Upper Femur with Intramedullary Internal Fixation Device, Percutaneous Approach (ICD-10-PCS; principal; 2022-08-06 09:00)
DX: S72.141A Displaced intertrochanteric fracture of right femur, initial encounter for closed fracture (principal); D62 Acute posthemorrhagic anemia; E87.1 Hypo-osmolality and hyponatremia; M81.0 Age-related osteoporosis without current pathological fracture; C50.912 Malignant neoplasm of unspecified site of left female breast; Z66 Do not resuscitate; T50.2X5A Adverse effect of carbonic-anhydrase inhibitors, benzothiadiazides and other diuretics, initial encounter; E78.2 Mixed hyperlipidemia; W10.8XXA Fall (on) (from) other stairs and steps, initial encounter; I10 Essential (primary) hypertension; Z20.822 Contact with and (suspected) exposure to COVID-19; Z87.891 Personal history of nicotine dependence; Z79.51 Long term (current) use of inhaled steroids; Z79.811 Long term (current) use of aromatase inhibitors; Z79.899 Other long term (current) drug therapy
CPT/HCPCS: 36415; 70450; 71045; 72125; 73502; 73562; 80048; 80053; 81003; 83735; 83930; 83935; 84300; 85025; 85610; 85730; 86850; 86900; 86901; 87635; 93005; 94640; 97110; 97116; 97163; 97166; 97530; 97535; 99285; C1713; C1769; J0690; J1100; J1170; J1650; J2250; J2270; J2405; J2795; J3010

== ENCOUNTER → 2022-08-30 10:17 | Outpatient (BNVA) | payer MEDICARE, SELFPAY | PROVIDERS: PCP Family Medicine; Visit Provider Physician Assistant | DX: Z13.89 Encounter for screening for other disorder (principal) ==

== ENCOUNTER 2022-09-03 12:44 | Outpatient (REF) | payer MEDICARE, SELFPAY ==
--- NOTE | ~2022-09-03 | XR_ITS ---
EXAMINATION: XR TIBIA AND FIBULA, RIGHT CLINICAL INFORMATION: Pain COMPARISON: None TECHNIQUE: AP and lateral views of the right tibia and fibula were obtained. FINDINGS: The bones and soft tissues are normal. No fracture. No osseous lesions. XR/XR tibia fibula RT 2V IMPRESSION: Normal right tibia and fibula.
== END 2022-09-03 12:45 | disposition home or self-care (01) ==
LOC: HO.HOSX 12:44
PROVIDERS: Visit Provider Physician Assistant
DX: S72.141D Displaced intertrochanteric fracture of right femur, subsequent encounter for closed fracture with routine healing (principal)
CPT/HCPCS: 73590

== ENCOUNTER 2022-10-12 09:30 | Outpatient (REF) | payer MEDICARE, SELFPAY ==
--- NOTE | ~2022-10-12 | XR_ITS ---
EXAMINATION: XR PELVIS CLINICAL INFORMATION: Fracture COMPARISON: Previous right hip x-ray and fluoroscopy exam August 2022 TECHNIQUE: AP view of the pelvis. FINDINGS: There is an intramedullary dasha and compression/lag screw transfixing the right femoral intertrochanteric fracture. The intramedullary dasha is not completely visualized/inferior end not seen. Fracture line still seen. Alignment unchanged. Arthritis at both hip joints. Bones of the pelvis are normal. Degenerative changes of the visualized lower lumbar spine. XR/XR pelvis 1-2V IMPRESSION: ORIF of right femoral intertrochanteric fracture.
== END 2022-10-12 09:31 | disposition home or self-care (01) ==
LOC: HO.HOSX 09:30
PROVIDERS: Visit Provider Physician Assistant
DX: S72.141D Displaced intertrochanteric fracture of right femur, subsequent encounter for closed fracture with routine healing (principal)
CPT/HCPCS: 72170

== ENCOUNTER 2022-11-23 08:04 | Outpatient (REF) | payer MEDICARE, SELFPAY | END 2022-11-23 08:05 | disposition home or self-care (01) | LOC: HO.HOSX 08:04 | PROVIDERS: Visit Provider Physician Assistant | DX: Z13.89 Encounter for screening for other disorder (principal) ==

== ENCOUNTER 2024-11-09 18:33 | Inpatient (IN) | payer MEDICARE, OTHER, SELFPAY ==
[2024-11-09] VITALS (10 sets, daily range): BP systolic 106–141; BP diastolic 35–62; PULSE 62–100; RESP 12–18; TEMP 36–36.6; O2SAT 95–99; BMI 25.8; BMI 26.3
--- NOTE | ~2024-11-09 | XR_ITS ---
CLINICAL HISTORY: shortness of breath Single view of the chest. COMPARISON: XR chest dated 08/05/22 at 14:12 EST FINDINGS: Borderline cardiomegaly. Atherosclerotic thoracic aorta. No consolidation. No pleural effusion or pneumothorax. No acute fracture. Chronic healed fracture deformity of the right humeral neck. IMPRESSION: 1. No consolidation. This document has been electronically signed by: Marlon Prince MD on 11/09/2024 20:32:55
--- NOTE | ~2024-11-09 | CT_ITS ---
CLINICAL HISTORY: weakness, new onset renal failure CT abdomen and pelvis without IV contrast. COMPARISON: None FINDINGS: Several small pulmonary nodules along the lung bases. For example left lower lobe 5 mm pulmonary nodule (series 2, image 10). Right lower lobe 6 mm pulmonary nodule (series 2, image 9) Distal esophageal wall thickening. Hepatic steatosis. Normal gallbladder. Noncontrast appearance of the spleen, and pancreas are unremarkable. Mild diffuse adrenal gland thickening. No hydronephrosis or hydroureter. No renal or ureteral calculus. Normal appendix. Mild colonic diverticulosis without evidence of diverticulitis. Mild mesenteric edema. Small amount of free fluid present within the lower pelvis. No mesenteric or retroperitoneal lymphadenopathy. Moderate aortoiliac atherosclerotic vascular calcifications. Urinary bladder is unremarkable given degree of distention. Left ovarian cystic lesion measuring 2.2 cm. Mild lower lumbar spondylosis. Internal fixation hardware present within the proximal right femur.Grade 1 anterolisthesis of L4 on L5, degenerative. Moderate spondylosis. IMPRESSION: 1. No evidence of renal obstruction. No renal or ureteral calculus bilaterally. 2. Mild mesenteric edema and small volume ascites. 3. Several small bilateral pulmonary nodules along the lung bases measuring up to 6 mm. Recommend comparison with prior imaging if available. If none available, recommend short-term follow-up imaging in 3-6 months. 4. Left ovarian cystic lesion measuring up to 2.2 cm. Recommend comparison with prior imaging. If none available, recommend pelvic ultrasound for further characterization. This document has been electronically signed by: Marlon Prince MD on 11/09/2024 20:44:39
--- NOTE | ~2024-11-09 | US_ITS ---
EXAMINATION: US PELVIS HISTORY: Ovarian cyst COMPARISON: Comparison is made with the prior examination dated 01/27/2018. Correlation is also made with an unenhanced CT of the pelvis dated 11/09/2024. TECHNIQUE: Transabdominal real-time 2D suero-scale ultrasound was performed. The patient was not able to undergo an endovaginal examination. FINDINGS: Uterus: The uterus is normal in size, measuring 6.2 x 2.9 x 4.6 cm. Myometrium has a normal echotexture. No fibroids are identified. Endometrium: The endometrial stripe measures 8 mm in thickness. Right ovary: The right ovary is not identified. Left ovary: The left ovary measures 2.6 x 2.0 x 2.2 cm. There is a 2.1 x 1.8 x 2.0 cm left ovarian simple cyst. Pelvic fluid: none. US/US pelvic complete IMPRESSION: 2.1 x 1.8 x 2.0 cm left ovarian simple cyst. The right ovary is not identified. Electronically signed by: Garry Coleman MD 11/12/2024 07:19 AM EDT
--- NOTE | ~2024-11-09 | CT_ITS ---
CLINICAL HISTORY: confusion, weakness CT head without contrast. COMPARISON: CT head dated 08/05/22 at 14:13 EST FINDINGS: The visualized paranasal sinuses are clear. The mastoid air cells are clear. No calvarial fracture. Atherosclerotic intracranial vasculature. No evidence for mass or mass effect. No intracranial hemorrhage or abnormal extra-axial fluid collection. No CT evidence of acute infarct. The ventricles are proportional with the degree of mild global cerebral volume loss without evidence of hydrocephalus. Basilar cisterns are patent. There are periventricular areas of low attenuation compatible with mild white matter small vessel disease. Posterior fossa appears unremarkable. IMPRESSION: 1. No acute intracranial findings. This document has been electronically signed by: Marlon Prince MD on 11/09/2024 20:23:57
--- NOTE | 2024-11-09 18:39 | ED.WEAKNESS ---
HPI - Weakness General Chief complaint: Altered Mental Status Stated complaint: weakness, low bp, confused Time Seen by Provider: 11/09/24 19:47 Source: patient, family and old records reviewed Mode of arrival: ambulatory Limitations: other (confusion) History of Present Illness ED Provider: ELINA ENRIQUEZ Narrative: 84 yo female with PMH of HTN, anemia, breast cancer, osteoporosis, GERD, takes 20mg daily of lasix now here with c/o abdominal cramps and diarrhea on Tuesday - she had poor PO intake since. She is still taking her lasix. She denies fevers, n/v. She has no other issues. She takes no OTC medications and her niece puts her pills away and then gives them to her. Niece notes she has been more weak and her BPs have been low 100s she seems more off than usual. She lives alone and her family helps her. MD Complaint: generalized weakness and lack of energy Onset (ago): day(s) (Tuesday) Duration: progressively worsening Location: generalized Migration: none Severity: moderate Relieving factors: none Exacerbating factors: movement Context: recent illness Associated symptoms: loss of appetite Related Data Home Medications ?Medication ?Instructions ?Recorded ?Confirmed alendronate 70 mg tablet 1 tab PO SEYMOUR 08/05/22 08/05/22 anastrozole 1 mg tablet 1 tab PO DAILY@1600 08/05/22 08/05/22 calcium 600 mg (as 1 tab PO DAILY@1600 08/05/22 08/05/22 carbonate)-vitamin D3 5 mcg (200 unit) tablet losartan 100 mg tablet 1 tab PO DAILY@1600 08/05/22 08/05/22 lovastatin 10 mg tablet 1 tab PO DAILY@1200 08/05/22 08/05/22 metoprolol succinate 200 mg 1 tab PO DAILY@0800 08/05/22 08/05/22 tablet,extended release 24 hr psyllium 1 packet PO DAILY@0800 08/05/22 08/05/22 Previous Rx's ?Medication ?Instructions ?Recorded amlodipine 10 mg tablet 10 mg PO DAILY@0800 #30 tabs 08/10/22 enoxaparin 40 mg/0.4 mL 40 mg (0.4 mL) subcut Q24H #38 08/10/22 subcutaneous syringe syringe oxycodone 5 mg tablet 5 mg PO Q8H PRN severe pain (scale 08/10/22 score 7-10) #9 tabs polyethylene glycol 3350 17 gram 17 g PO DAILY #30 ea 08/10/22 oral powder packet enoxaparin 40 mg/0.4 mL 40 mg (0.4 mL) subcut Q24H 11 days 09/02/22 subcutaneous syringe (Lovenox) #4.4 mL Allergies Allergy/AdvReac Type Severity Reaction Status Date / Time No Known Allergies Allergy Verified 11/09/24 18:45 Review of Systems Review of Systems: Constitutional : No Fever, No Chills, pos Fatigue ENT/Mouth : No sore throat, No Rhinorrhea Eyes: No Eye Pain, No Swelling, No Redness Cardiovascular : No Chest Pain, No SOB, No Dyspnea on Exertion Respiratory : No Cough, No Sputum Gastrointestinal : No Nausea, No Vomiting, No Diarrhea, pos abdominal Pain Genitourinary : No Dysuria, No Urinary Frequency, No Hematuria, Musculoskeletal : No joint pain, No Myalgias, No Joint Swelling Skin : No Skin Lesions, No rash Neuro : pos Weakness, No Numbness, No Dizziness, no Headache, pos confusion Psych : No Anxiety/Panic, No Depression All other systems reviewed and are negative [facility] Past Medical History Attestation statement: The following information was validated with the patient. Source: old records reviewed Medical History Hyponatremia Intertrochanteric fracture of right femur Hyperlipidemia High blood pressure Social History Social History Household Members: Other Household Members Other:: lives alone in apartment Housing: Apartment Do you presently have visiting nurse or other home services: No Patient Tobacco Use Status: Former Tobacco user Smoked in Last 30 Days: No e-Cigarette/Vaping Use: Former Use Use of substances other than those prescribed or required for medical reasons: No Advance Directives: No Advance Directives Information Provided: No Physical Exam Vital Signs: Vital Signs: Last Vital Signs Temp 97.5 F 11/09/24 20:50 Pulse 65 11/09/24 20:50 Resp 15 11/09/24 20:50 BP 115/53 L 11/09/24 20:50 Pulse Ox 97 11/09/24 20:50 O2 Del Method Room Air 11/09/24 20:50 BMI result Body Mass Index 25.8 Appearance: Alert. Oriented X2. No acute distress. Eyes: Pupils equal, round and reactive to light. ENT: Pharynx normal. Neck: Normal inspection. Neck supple. CVS: Normal heart rate and rhythm. Pulses normal. Respiratory: No respiratory distress. Breath sounds normal. Abdomen: Soft and nontender. no grimace Skin: Skin warm and dry. pale skin color. Normal skin turgor. Extremities: non pitting bilateral lower extremity edema. Neuro: Oriented X 2. No motor deficit. No sensory deficit. CN2-12 intact Course Course Course Narrative: This is an RME performed by Samantha Wilson DIRECTOR OF CATH LAB: Additional HPI, ROS, PE not included below will be deferred to primary provider. 84 yo female accompanied by niece (healthcare proxy) with PMHx of HTN, due to 5 days of loose stools, abdominal pain, loss of appetite, confusion described as forgetfulness, and generalized weakness, today BP at home of 100/40 per speech therapist who called doctor who recommended evaluation in the ED. Niece states she has decreased urinary output despite being on lasix. Patient reports L knee pain that began yesterday. Not on AC, denies recent falls. Plan: labs, viral swabs, EKG, UA, head CT Medications Administered Generic Name Dose Route Start Last Admin Trade Name Freq PRN Reason Stop Dose Admin Lactated Ringer's 1,000 mls @ 80 mls/hr 11/09/24 20:15 11/09/24 20:09 Lr IVCONT 80 mls/hr .[id number] AFSANEH Administration Lactated Ringer's 1,000 mls @ 999 mls/hr 11/09/24 20:41 11/09/24 20:53 Lr IV 11/09/24 21:41 999 mls/hr .Q1H1M ONE Administration Discontinued Medications Generic Name Dose Route Start Last Admin Trade Name Freq PRN Reason Stop Dose Admin Ceftriaxone Sodium 1 gm 11/09/24 19:47 11/09/24 20:03 Ceftriaxone Sodium 1 Gm Vial IVPUSH 11/09/24 19:48 1 gm ONCE ONE Administration Lactated Ringer's 500 mls @ 999 mls/hr 11/09/24 20:15 11/09/24 20:39 Lr IV 11/09/24 20:45 Infused .Q31M AFSANEH Infusion Medical Decision Making Medical Decision Making [facility] Narrative: 84 yo female with PMH of HTN, anemia, breast cancer, osteoporosis, GERD, takes 20mg daily of lasix now here with c/o confusion, weakness, all starting after recent GI illness on Tuesday. Family notes she is more confused and not herself as well. Found to be confused and in new onset renal failure - I did discuss fluids but wanted to know if she would ever have HD and the niece states no. At this time labs, renal consult, IVF, CT scan for obstruction, hollow[place], start on ceftriaxone for possible UTI Differential Diagnosis Differential Diagnoses: The differential diagnosis associated with the presentation includes renal failure, dehydration, anemia Admission/Observation Consideration of admission/observation: Escalation of care including admission/observation considered admit for fluids Consult Healthcare Provider Management of the patient was discussed with: Hospitalist (will admit) and [employer] Worker (Dr. Donovan aware give more fluids) Lab Data [facility] Lab Attestation statement: I reviewed the patient's lab results. 11/09/24 19:03 11/09/24 19:03 Labs: Lab Results 11/09/24 11/09/24 11/09/24 Range/Units 19:03 19:12 19:54 WBC 9.6 (4.8-10.8) X10*3/uL RBC 3.25 L D (4.20-5.50) X10*6/uL Hgb 10.0 L D (12.0-16.0) g/dl Hct 29.1 L D (37.0-47.0) % MCV 89.5 (80.0-98.0) fL MCH 30.8 (27.0-33.0) pg MCHC 34.4 (31.0-35.0) g/dl RDW 12.2 (11.0-16.0) % Plt Count 320 D (160-400) X10*3/uL MPV 10.1 (9.4-12.3) fL Immature Gran % (Auto) 0.5 H (0.0-0.4) % Neut % (Auto) 81.7 H (45-73) % Lymph % (Auto) 5.8 L (20-40) % [place] % (Auto) 7.2 (2-11) % Eos % (Auto) 4.3 H (0-4) % Baso % (Auto) 0.5 (0-2) % Lymph # (Auto) 0.6 L (1.2-4.9) X10*3/uL [place] # (Auto) 0.7 (0.1-1.2) X10*3/uL Eos # (Auto) 0.4 (0.0-0.4) X10*3/uL Baso # (Auto) 0.1 (0.0-0.2) X10*3/uL Abs Immat Gran (auto) 0.05 H (0.00-0.03) X10*3/uL Absolute Neuts (auto) 7.8 (2.0-8.3) x10*3/uL Absolute Nucleated RBC 0.000 (0.0-0.012) X10*3/uL Nucleated RBC % (auto) 0.0 (0.0-0.2) /100WBC Sodium 132 L (135-145) mmol/L Potassium 4.6 (3.3-5.1) mmol/L Chloride 98 (96-108) mmol/L Carbon Dioxide 19 L (22-29) mmol/L Anion Gap 20 (12-20) BUN 83 H (9-16) mg/dL Creatinine 13.33 H* (0.5-1.4) mg/dL Estim Creat Clear Calc 3.0 Estimated GFR 3 Random Glucose 118 H (60-115) mg/dL Lactic Acid 0.7 (0.5-2.0) mmol/L Calcium 8.7 (8.4-10.2) mg/dL Magnesium 3.7 H* (1.6-2.6) mg/dL Total Bilirubin 0.5 (0.0-1.0) mg/dL AST 12 (5-31) U/L ALT < 6 (0-31) U/L Alkaline Phosphatase 84 (39-117) U/L Total Creatine Kinase (26-140) U/L Troponin I High Sens 4.3 (<3.5-17.0) ng/L B-Natriuretic Peptide 151 H (<100) pg/mL Total Protein 6.8 (6.5-8.0) g/dL Albumin 3.6 (3.5-5.0) g/dL Lipase 47 (8-78) U/L TSH (0.32-4.0) uIU/mL Urine Color Straw Urine Appearance Hazy Urine pH 6.0 (5.0-9.0) Ur Specific [place] 1.010 (1.005-1.025) Urine Protein 100 (2+) H (Neg-Trace) mg/dL Urine Glucose (UA) Negative (Negative) mg/dL Urine Ketones Negative (Negative) mg/dL Urine Blood Small (1+) H (Negative) Urine Nitrite Negative (Negative) Ur Leukocyte Esterase Moderate (2+) H (Negative) Urine RBC 0-2 (0-2) /HPF Urine WBC >50 H (0-5) /HPF Ur Squamous Epith Cells 0-2 (0-2) /HPF Urine Bacteria None Seen (None Seen) Hyaline Casts 0-2 (0-2) /LPF Influenza Type A (PCR) NEGATIVE (Negative) Influenza Type B (PCR) NEGATIVE (Negative) RSV RNA Qual (PCR) NEGATIVE (Negative) SARS-CoV-2 RNA (RT-PCR) NEGATIVE (Negative) 11/09/24 Range/Units 19:58 WBC (4.8-10.8) X10*3/uL RBC (4.20-5.50) X10*6/uL Hgb (12.0-16.0) g/dl Hct (37.0-47.0) % MCV (80.0-98.0) fL MCH (27.0-33.0) pg MCHC (31.0-35.0) g/dl RDW (11.0-16.0) % Plt Count (160-400) X10*3/uL MPV (9.4-12.3) fL Immature Gran % (Auto) (0.0-0.4) % Neut % (Auto) (45-73) % Lymph % (Auto) (20-40) % [place] % (Auto) (2-11) % Eos % (Auto) (0-4) % Baso % (Auto) (0-2) % Lymph # (Auto) (1.2-4.9) X10*3/uL [place] # (Auto) (0.1-1.2) X10*3/uL Eos # (Auto) (0.0-0.4) X10*3/uL Baso # (Auto) (0.0-0.2) X10*3/uL Abs Immat Gran (auto) (0.00-0.03) X10*3/uL Absolute Neuts (auto) (2.0-8.3) x10*3/uL Absolute Nucleated RBC (0.0-0.012) X10*3/uL Nucleated RBC % (auto) (0.0-0.2) /100WBC Sodium (135-145) mmol/L Potassium (3.3-5.1) mmol/L Chloride (96-108) mmol/L Carbon Dioxide (22-29) mmol/L Anion Gap (12-20) BUN (9-16) mg/dL Creatinine (0.5-1.4) mg/dL Estim Creat Clear Calc Estimated GFR Random Glucose (60-115) mg/dL Lactic Acid (0.5-2.0) mmol/L Calcium (8.4-10.2) mg/dL Magnesium (1.6-2.6) mg/dL Total Bilirubin (0.0-1.0) mg/dL AST (5-31) U/L ALT (0-31) U/L Alkaline Phosphatase (39-117) U/L Total Creatine Kinase 68 (26-140) U/L Troponin I High Sens (<3.5-17.0) ng/L B-Natriuretic Peptide (<100) pg/mL Total Protein (6.5-8.0) g/dL Albumin (3.5-5.0) g/dL Lipase (8-78) U/L TSH 1.32 (0.32-4.0) uIU/mL Urine Color Urine Appearance Urine pH (5.0-9.0) Ur Specific [place] (1.005-1.025) Urine Protein (Neg-Trace) mg/dL Urine Glucose (UA) (Negative) mg/dL Urine Ketones (Negative) mg/dL Urine Blood (Negative) Urine Nitrite (Negative) Ur Leukocyte Esterase (Negative) Urine RBC (0-2) /HPF Urine WBC (0-5) /HPF Ur Squamous Epith Cells (0-2) /HPF Urine Bacteria (None Seen) Hyaline Casts (0-2) /LPF Influenza Type A (PCR) (Negative) Influenza Type B (PCR) (Negative) RSV RNA Qual (PCR) (Negative) SARS-CoV-2 RNA (RT-PCR) (Negative) Independent Interpretation I performed an independent interpretation of an: EKG, Plain X-Ray (normal ) and CT Scan (no acute cause) Interpretation: Rate: 65 Rhythm: NSR [place]: normal Normal P waves. Normal SIA. Normal QRS complex. ST T wave : no SVETLANA, nonspecific ST T wave changes qTC: 463 prior studies: no SVETLANA The study has been interpreted contemporaneously by me. . Radiology Impression Discussion of test interpretation with radiology: I have reviewed the radiologist's reading. Independent Historian Clinical information obtained from an independent historian. History obtained from or confirmed by: Other (niece) External Record Review External record reviewed: Inpatient record Critical Care Time Critical Care Time Critical Care Time: Yes Total Critical Care Time: 45 Attestation: Time is exclusive of separately billable procedures. Time includes: direct patient care, patient reassessment, coordination of patient care, interpretation of data (laboratory data, pulse oximetry,and chest xrays), review of patient's medical records, medical consultation and documentation of patient care. Procedures excluded from critical care time: electrocardiography. Discharge Plan Discharge Clinical Impression: Acute metabolic encephalopathy, Acute UTI, Acute renal failure Patient Disposition: Admitted As Inpatient Prescriptions: No Action enoxaparin [Lovenox] 40 mg/0.4 mL syringe 40 mg subcut Q24H 11 Days Qty: 4.4 0RF anastrozole 1 mg tablet 1 tab PO DAILY@1600 metoprolol succinate 200 mg tablet extended release 24 hr 1 tab PO DAILY@0800 alendronate 70 mg tablet 1 tab PO SEYMOUR psyllium Packet 1 packet PO DAILY@0800 Rx Instructions: mix into at least 8 oz of water or juice before administering calcium carbonate-vitamin D3 600 mg-5 mcg (200 unit) Tablet 1 tab PO DAILY@1600 lovastatin 10 mg tablet 1 tab PO DAILY@1200 losartan 100 mg tablet 1 tab PO DAILY@1600 enoxaparin 40 mg/0.4 mL Syringe 40 mg subcut Q24H Qty: 38 0RF amlodipine 10 mg Tablet 10 mg PO DAILY@0800 Qty: 30 0RF Protocol: Hold for SBP< HOLD for SBP < : 90 oxycodone 5 mg tablet 5 mg PO Q8H PRN (Reason: severe pain (scale score 7-10)) Qty: 9 0RF Rx Instructions: Partial Fill upon patient request. polyethylene glycol 3350 17 gram Powder In Packet 17 g PO DAILY Qty: 30 0RF Print Language: Tongan
--- NOTE | 2024-11-09 18:43 | ECG_ITS ---
Test Reason : weakness Blood Pressure : */* mmHG Vent. Rate : 65 BPM Atrial Rate : 65 BPM P-R Int : 190 ms QRS Dur : 112 ms QT Int : 446 ms P-R-T Axes : * -11 -11 degrees QTcB Int : 463 ms Sinus rhythm with Premature atrial complexes Low voltage QRS Incomplete left bundle branch block Borderline ECG When compared with ECG of 05-Aug-2022 14:36, Premature atrial complexes are now Present Referred By: Priya Wilson Electronically Signed By: FALLON CORONADO
[2024-11-09 19:11] LABS: MANUAL DIFF FLAG NO
[2024-11-09 19:13] LABS: Basophils Absolute Auto 0.1 X10*3/uL (0.0-0.2); Basophils Percent Auto 0.5 % (0-2); Eosinophils Absolute Auto 0.4 X10*3/uL (0.0-0.4); Eosinophils Percent Auto 4.3 % (0-4); Hematocrit 29.1 % (37.0-47.0); Imm Gran Abs Auto 0.05 X10*3/uL (0.00-0.03); Imm Gran Pct Auto 0.5 % (0.0-0.4); Lymphocytes Absolute Auto 0.6 X10*3/uL (1.2-4.9); Lymphocytes Percent Auto 5.8 % (20-40); Mean Corpuscular HGB Conc 34.4 g/dl (31.0-35.0); Mean Corpuscular Hemoglobin 30.8 pg (27.0-33.0); Mean Corpuscular Volume 89.5 fL (80.0-98.0); Mean Platelet Volume 10.1 fL (9.4-12.3); Monocytes Absolute Auto 0.7 X10*3/uL (0.1-1.2); Monocytes Percent Auto 7.2 % (2-11); Neutrophils Absolute Auto 7.8 x10*3/uL (2.0-8.3); Neutrophils Percent Auto 81.7 % (45-73); Platelet Count 320 X10*3/uL (160-400); Red Blood Count 3.25 X10*6/uL (4.20-5.50); Red Cell Distribution Width 12.2 % (11.0-16.0); White Blood Count 9.6 X10*3/uL (4.8-10.8)
[2024-11-09 19:17] LABS: Appearance Urine Hazy; Color Urine Straw; Glucose Urine UA Negative (Negative); Leukocyte Esterase Urine Moderate (2+) (Negative); Nitrite Urine Negative (Negative); UMIC TRIGGER UACC YES; Urine Blood Small (1+) (Negative); Urine Ketones Negative (Negative); Urine Protein 100 (2+) mg/dL (Neg-Trace)
[2024-11-09 19:24] LABS: Bacteria Urine None Seen (None Seen); Hyaline Casts Urine 0-2 /LPF (0-2); RBC Urine 0-2 /HPF (0-2); Squamous Epithelial Cell Urine 0-2 /HPF (0-2); UACC Culture Trigger YES; WBC Urine >50 /HPF (0-5)
[2024-11-09 19:32] LABS: B Type Natriuretic Peptide 151 pg/mL (<100)
[2024-11-09 19:34] LABS: Troponin-I High Sensitivity 4.3 ng/L (<3.5-17.0)
[2024-11-09 19:36] LABS: Alanine Aminotransferase < 6 U/L (0-31); Albumin Level 3.6 g/dL (3.5-5.0); Alkaline Phosphatase 84 U/L (39-117); Anion Gap 20 (12-20); Aspartate Amino Transferase 12 U/L (5-31); Bilirubin Total 0.5 mg/dL (0.0-1.0); Blood Urea Nitrogen 83 mg/dL (9-16); Calcium 8.7 mg/dL (8.4-10.2); Carbon Dioxide 19 mmol/L (22-29); Chloride 98 mmol/L (96-108); Estimated Glomerular Filt Rate 3; Glucose Random 118 mg/dL (60-115); Lipase 47 U/L (8-78); Magnesium 3.7 mg/dL (1.6-2.6); Potassium 4.6 mmol/L (3.3-5.1); Sodium 132 mmol/L (135-145); Total Protein 6.8 g/dL (6.5-8.0)
--- OUTSIDE RECORDS SUMMARY | 2024-11-09 19:44 | XMS_ITS | Patient Health Record ---
Author Organization [email or web address] Address [address] [place] [address] Care Team Providers Care Staff Development Nurse Name Role Phone LENNOX ZAMBRANO MD Primary Care Provider Kim Khan Unavailable [phone] Reason For Referral No Information Medications Medication SIG (Take, Route, Frequency, Duration) Notes Start Date End Date Status Lovastatin 10 MG 1 tablet with the evening meal Orally Once a day Active miSOPROStol 200 MCG 2 TABS Orally NIGHT BEFORE PROCEDURE for 1 days 02/06/2018 Active Metoprolol Succinate ER 200 MG 1 tablet Orally Once a day Active Irbesartan 300 MG 1 tablet Orally Once a day Active hydroCHLOROthiazide 25 MG 1 tablet in morning Orally Once a day Active Social History Tobacco Use: Social History Observation Description Date Details (start date - stop date) Former Smoker NA - NA Tobacco Use/Smoking Question Answer Notes Are you a former smoker How long has it been since you last smoked? > 10 years Alcohol Screen (Audit-C) Question Answer Notes Did you have a drink contain ing alcohol in the past year? Yes How often did you have a dri nk containing alcohol in the past year? 2 to 3 times a week (3 points) How many drinks did you have on a typical day when you were drinking in the past year? 1 or 2 drinks (0 point) How often did you have 6 or more drinks on one occasion in the past year? Never (0 point) Points 3 Interpretation Negative Problems Problem Type SNOMED Code ICD Code Onset Dates Problem Status W/U Status Risk Notes Problem Postmenopausal bleeding (66118083) Postmenopausal bleeding (N95.0) Active confirmed Plan Of Treatment No Information Insurance Providers Payer Name Payer Address Payer Phone Subscriber Number Group Number Insured Name Patient Relationship to Insured Coverage Start Date Coverage End Date [employer] [address] [place] [id number] RUTH MIDDLETON Self - patient is the insured Medical (General) History Medical History History ICD Code Hypertension
[2024-11-09 19:50] LABS: Influenza A PCR NEGATIVE (Negative); Influenza B PCR NEGATIVE (Negative); Resp Syncy Virus RNA Qual PCR NEGATIVE (Negative); SARS COV2 PCR INHOUSE NEGATIVE (Negative)
[2024-11-09] MEDS: cefTRIAXone sodium 1 GM VIAL IVPUSH (20:03)
[2024-11-09] MEDS: Lactated Ringers 500 ML 999 ML IV (20:09)
[2024-11-09] MEDS: Lactated Ringers 1,000 ML 80 ML IVCONT (20:09)
[2024-11-09 20:13] LABS: Lactic Acid 0.7 mmol/L (0.5-2.0)
--- NOTE | 2024-11-09 20:22 | PC.NURSE ---
pt a&ox2, respirations even and unlabored. per pt family member, pt has been experiencing onset of confusion, diarrhea, weakness and trouble urinating. called sepsis alert at 1947. 18G iv placed in right ac, labs obtained. antibiotics and fluids administered. 16f temp sensing holloway placed, pt tolerated well, 100ml light colored urine voided. pt niece at bedside, given recliner for comfort of the pt. nsr on tele 98/100bpm. vss.
[2024-11-09 20:42] LABS: TSH reflex Free T4 1.32 uIU/mL (0.32-4.0)
[2024-11-09] MEDS: Lactated Ringers 1,000 ML 999 ML IV (20:53)
[2024-11-09] MEDS: Heparin Sodium,Porcine 5,000 UNIT/ML VIAL 5000 UNIT SUBCUT (22:14)
--- NOTE | 2024-11-09 22:14 | PHA.MEDREC ---
Addendum entered by Tyson Rios 11/09/24 22:21: reviewed Original Note: Pharmacy Consult ? Medication Reconciliation Pharmacy has completed the medication reconciliation. Spoke with patients family at bedside who were able to confirm the patients medications. Family confirmed the patient is not taking the Alendronate 70mg tab back in August due to developing some issues while taking it. They also confirmed the Amlodipine 5mg tab and confirmed the pt takes 2 tabs (10mg) daily instead of 1 tab BID. Patient is getting her medications through [facility].
--- NOTE | 2024-11-09 22:20 | PM.IMHP ---
History of Present Illness Date of Service: 11/09/24 Chief Complaint: Generalized weakness 84-year-old female with a past medical history of hypertension, hyperlipidemia presented to the hospital with a chief complaint of generalized weakness. Most of the history obtained from the patient's healthcare proxy at bedside. Patient's healthcare proxy reported that patient generally lives alone and independent of ADLs. And the healthcare proxy checks on her frequently. Over the past couple days patient has been not feeling well. Has been having episodes of diarrhea for the past 3-4 days. Reported abdominal discomfort yesterday. Currently denies any abdominal pain. Also patient has been taking Lasix for mild CHF which she has been continuing during the course. Also has decreased appetite and decreased intake over the past few days. Denies any falls or injury. Patient denies any chest pain or palpitations. Denies any urinary symptoms Patient's healthcare proxy also mentioned that patient appears to be slightly confused than her baseline. Review of all other systems is negative except mentioned above ER course: Per ER team, patient appeared to be dehydrated; all labs noted to have a noted creatinine of 13. CT abdomen pelvis showed no acute findings. Urinalysis -> UTI-given a dose of ceftriaxone. [facility] Medical History Hyponatremia Intertrochanteric fracture of right femur Hyperlipidemia High blood pressure Social History Household Members: None Household Members Other:: lives alone in apartment Housing: Apartment Do you presently have visiting nurse or other home services: No (only speech pathologist) Patient Tobacco Use Status: Former Tobacco user Smoked in Last 30 Days: No e-Cigarette/Vaping Use: Former Use Patient Interested in Nicotine Replacement: No Patient Given Instructions on How to Stop Smoking: No Second Hand Smoke Exposure: No Use of substances other than those prescribed or required for medical reasons: No Currently Displaying Signs/Symptoms of Drug Intoxication Withdrawal: No Any prior treatment program specific to substance use: No Have you been hit, kicked, punched, or otherwise hurt by someone within the past year? 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 Advance Directives: No Advance Directives Information Provided: No Advance Directives on File: No Do you have a plan to hurt others: No Plan Recently lost weight without trying: No Eating poorly because of decreased appetite: Yes Nutrition Risks: No Nutritional Risk Patient : No : No Poor oral hygiene: No Meds Allergies Allergy/AdvReac Type Severity Reaction Status Date / Time No Known Allergies Allergy Verified 11/09/24 18:45 Active Medications: Current Medications Acetaminophen (Acetaminophen 325 Mg Tablet) 650 mg PO Q6H PRN PRN Reason: Pain, Mild 1-3,fever,headache Calcium Carbonate (Calcium Carbonate 750 Mg Tab.Chew) 750 mg PO Q4H PRN PRN Reason: Heartburn Ceftriaxone Sodium (Ceftriaxone Sodium 1 Gm Vial) 1 gm IVPUSH Q24H [facility] Heparin Sodium (Porcine) (Heparin Sodium,Porcine 5,000 Unit/Ml Vial) 5,000 unit SUBCUT Q12H [facility] Last Admin: 11/09/24 22:14 Dose: 5,000 unit Lactated Ringer's (Lr) 1,000 mls @ 80 mls/hr IVCONT .[id number] [facility] Last Admin: 11/09/24 20:09 Dose: 80 mls/hr Magnesium Hydroxide (Milk Of Magnesia 30 Ml Oral.Susp) 30 ml PO DAILY PRN PRN Reason: Constipation Melatonin (Melatonin 3 Mg Tablet) 6 mg PO BEDTIME PRN PRN Reason: Insomnia Sodium Chloride (0.9 % Sodium Chloride Flush 3 Ml Syringe) 3 ml IVFLUSH QSHIFT [facility] Home Medications ?Medication ?Instructions ?Recorded ?Confirmed ?Last Taken ?Type calcium 600 mg (as 1 tab PO DAILY@159908/05/22 11/09/24 11/08/24 History carbonate)-vitamin D3 5 mcg (200 unit) tablet losartan 100 mg tablet 100 mg PO DAILY@1600 08/05/22 11/09/24 11/08/24 History lovastatin 10 mg tablet 10 mg PO DAILY@1200 08/05/22 11/09/24 11/08/24 History metoprolol succinate 200 mg 200 tab PO DAILY@79908/05/22 11/09/24 11/09/24 History tablet,extended release 24 hr psyllium 1 packet PO DAILY@79908/05/22 11/09/24 11/09/24 History amlodipine 5 mg tablet 10 mg PO DAILY 11/09/24 11/09/24 11/09/24 History furosemide 20 mg tablet 20 mg PO DAILY 11/09/24 11/09/24 11/09/24 History magnesium glycinate 100 mg PO DAILY 11/09/24 11/09/24 11/09/24 History omeprazole 40 mg capsule,delayed 40 mg PO DAILY@0630 11/09/24 11/09/24 11/09/24 History release trazodone 50 mg tablet 75 mg PO BEDTIME PRN insomnia 11/09/24 11/09/24 Unknown History Physical Exam Vital Signs and Narrative: Vital Signs: Last Vital Signs Temp 97.5 F 11/09/24 21:47 Pulse 64 11/09/24 21:47 Resp 12 11/09/24 21:47 BP 120/59 L 11/09/24 21:47 Pulse Ox 97 11/09/24 21:47 O2 Del Method Room Air 11/09/24 21:47 BMI result Body Mass Index 25.8 Gen: Appears be in no acute distress HEENT: NCAT, Moist mucosa. Pulmonary: Vesicular breath sounds, fair air entry CVS: Normal S1-S2 Abdomen: BS+, Soft, Nontender Extremities: Warm well perfused Neuro: Alert and awake. Results Labs 11/09/24 19:03 11/09/24 19:03 Labs: Laboratory Results - last 24 hr 11/09/24 11/09/24 11/09/24 19:03 19:12 19:54 MCV 89.5 MCH 30.8 MCHC 34.4 RDW 12.2 Plt Count 320 D MPV 10.1 Immature Gran % (Auto) 0.5 H Neut % (Auto) 81.7 H Lymph % (Auto) 5.8 L [place] % (Auto) 7.2 Eos % (Auto) 4.3 H Baso % (Auto) 0.5 Lymph # (Auto) 0.6 L [place] # (Auto) 0.7 Eos # (Auto) 0.4 Baso # (Auto) 0.1 Abs Immat Gran (auto) 0.05 H Absolute Neuts (auto) 7.8 Absolute Nucleated RBC 0.000 Nucleated RBC % (auto) 0.0 Anion Gap 20 Estim Creat Clear Calc 3.0 Estimated GFR 3 Random Glucose 118 H Lactic Acid 0.7 Calcium 8.7 Magnesium 3.7 H* Total Bilirubin 0.5 AST 12 ALT < 6 Alkaline Phosphatase 84 Total Creatine Kinase B-Natriuretic Peptide 151 H Total Protein 6.8 Albumin 3.6 Lipase 47 TSH Urine Color Straw Urine Appearance Hazy Urine pH 6.0 Ur Specific [place] 1.010 Urine Protein 100 (2+) H Urine Glucose (UA) Negative Urine Ketones Negative Urine Blood Small (1+) H Urine Nitrite Negative Ur Leukocyte Esterase Moderate (2+) H Urine RBC 0-2 Urine WBC >50 H Ur Squamous Epith Cells 0-2 Urine Bacteria None Seen Hyaline Casts 0-2 Influenza Type A (PCR) NEGATIVE Influenza Type B (PCR) NEGATIVE RSV RNA Qual (PCR) NEGATIVE SARS-CoV-2 RNA (RT-PCR) NEGATIVE 11/09/24 19:58 MCV MCH MCHC RDW Plt Count MPV Immature Gran % (Auto) Neut % (Auto) Lymph % (Auto) [place] % (Auto) Eos % (Auto) Baso % (Auto) Lymph # (Auto) [place] # (Auto) Eos # (Auto) Baso # (Auto) Abs Immat Gran (auto) Absolute Neuts (auto) Absolute Nucleated RBC Nucleated RBC % (auto) Anion Gap Estim Creat Clear Calc Estimated GFR Random Glucose Lactic Acid Calcium Magnesium Total Bilirubin AST ALT Alkaline Phosphatase Total Creatine Kinase 68 B-Natriuretic Peptide Total Protein Albumin Lipase TSH 1.32 Urine Color Urine Appearance Urine pH Ur Specific [place] Urine Protein Urine Glucose (UA) Urine Ketones Urine Blood Urine Nitrite Ur Leukocyte Esterase Urine RBC Urine WBC Ur Squamous Epith Cells Urine Bacteria Hyaline Casts Influenza Type A (PCR) Influenza Type B (PCR) RSV RNA Qual (PCR) SARS-CoV-2 RNA (RT-PCR) Assessment and Plan (1) Acute renal failure: Qualifiers: Acute renal failure type: unspecified Qualified Code(s): N17.9 - Acute kidney failure, unspecified Status: Acute Plan 84-year-old female with a past medical history of hypertension, hyperlipidemia presented to the hospital with a chief complaint of generalized weakness. Admitted for following Generalized weakness: Likely in setting of dehydration/ELIZABETH/OT. Fall precautions PT/OT for discharge UTI: Continue ceftriaxone. Follow up cultures. Diarrhea: CT abdomen pelvis showed no acute findings except for mild mesenteric edema and small volume ascites. ELIZABETH: Baseline creatinine around 0.7. Creatinine on presentation was 13. Likely prerenal. Gentle IV fluids. Nephrology team was notified. CHF: Patient is on Lasix at home which has been greatly reduced to 20 mg daily. Will hold Lasix for now. Pulmonary nodules: Outpatient follow-up with the PCP/surveillance. Left ovarian cystic lesion: Recommended pending ultrasound-ordered DVT prophylaxis: SubQ heparin Code status: Full code Quality Stroke Does the patient have a stroke diagnosis?: No VTE Prior VTE?: No VTE Risk Level:: Medical - moderate - high VTE Device Contraindication: Treatment Not Indicated VTE Drug Contraindication: N/A - Med Ordered
[2024-11-10] MEDS: traZODone HCL 50 MG TABLET PO (00:27)
[2024-11-10] MEDS: 0.9 % Sodium Chloride Flush 3 ML SYRINGE IVFLUSH ×2 (00:28→08:44)
[2024-11-10] MEDS: Melatonin 3 MG TABLET 6 MG PO (01:51)
--- NOTE | 2024-11-10 02:38 | PC.ADMIT ---
Addendum entered by Brandon York RN 11/10/24 04:45: Bi lateral legs +1 edema. Patients left ankle is more edematous than right, Left +2, Right +1. Original Note: Patient is alert to person, place, and month. [place], has a speech impairment and mild cognitive impairment. Patients niece stayed overnight. Patient lives alone and ambulates with walker for distance. Patients niece reports no visiting nurses, only speech pathologist d/t recent decline in speech ability. Niece also confirms confusion that has been getting worse. Patient doesnt seem to be aware of her situation and repeats desire to go home. She is anxious tonight and has difficulty falling asleep after trazadone. Melatonin also administered. Waiting for stool sample, last bowel movement was 5-8. Patient has a holloway catheter in place with clear yellow urine. Denies cp,sob, n/v. Skin is intact. Standby assist from bed to chair. All needs adressed, call ceballos in reach, safety measures in place.
[2024-11-10 03:17] VITALS: BP 128/57; PULSE 64; RESP 18; TEMP 36.9; O2SAT 95
[2024-11-10] MEDS: diphenhydrAMINE HCL 25 MG CAPSULE PO (04:49)
[2024-11-10 07:40] LABS: MANUAL DIFF FLAG NO
[2024-11-10 07:45] LABS: Basophils Absolute Auto 0.1 X10*3/uL (0.0-0.2); Basophils Percent Auto 0.9 % (0-2); Eosinophils Absolute Auto 0.4 X10*3/uL (0.0-0.4); Eosinophils Percent Auto 5.3 % (0-4); Hematocrit 29.3 % (37.0-47.0); Hemoglobin 9.8 g/dl (12.0-16.0); Imm Gran Abs Auto 0.05 X10*3/uL (0.00-0.03); Imm Gran Pct Auto 0.6 % (0.0-0.4); Lymphocytes Absolute Auto 0.5 X10*3/uL (1.2-4.9); Lymphocytes Percent Auto 5.9 % (20-40); Mean Corpuscular HGB Conc 33.4 g/dl (31.0-35.0); Mean Corpuscular Hemoglobin 30.4 pg (27.0-33.0); Monocytes Absolute Auto 0.5 X10*3/uL (0.1-1.2); Monocytes Percent Auto 6.4 % (2-11); Neutrophils Absolute Auto 6.6 x10*3/uL (2.0-8.3); Neutrophils Percent Auto 80.9 % (45-73); Platelet Count 299 X10*3/uL (160-400); Red Blood Count 3.22 X10*6/uL (4.20-5.50); Red Cell Distribution Width 12.2 % (11.0-16.0); White Blood Count 8.1 X10*3/uL (4.8-10.8)
[2024-11-10 08:00] VITALS: BP 114/53; PULSE 65; RESP 18; TEMP 36.4; O2SAT 92
[2024-11-10 08:02] LABS: Anion Gap 20 (12-20); Blood Urea Nitrogen 78 mg/dL (9-16); Calcium 8.2 mg/dL (8.4-10.2); Carbon Dioxide 17 mmol/L (22-29); Chloride 100 mmol/L (96-108); Creatinine Clr Calc Pharmacy 3.1; Estimated Glomerular Filt Rate 3; Glucose Random 106 mg/dL (60-115); Potassium 4.4 mmol/L (3.3-5.1); Sodium 133 mmol/L (135-145)
[2024-11-10] MEDS: Heparin Sodium,Porcine 5,000 UNIT/ML VIAL 5000 UNIT SUBCUT ×2 (08:44→20:20)
[2024-11-10] MEDS: Lactated Ringers 1,000 ML 80 ML IVCONT ×2 (08:44→20:21)
[2024-11-10] MEDS: Acetaminophen 325 MG TABLET 650 MG PO (09:49)
--- NOTE | 2024-11-10 10:36 | P.PNIM_ITS ---
Subjective Subjective Date of Service: 11/10/24 Interval History: no complaints Physical Exam 2 Vital Signs: Vital Signs: Last Vital Signs Temp 97.5 F 11/10/24 08:00 Pulse 65 11/10/24 08:00 Resp 18 11/10/24 08:00 BP 114/53 L 11/10/24 08:00 Pulse Ox 92 11/10/24 08:00 O2 Del Method Room Air 11/10/24 08:00 BMI result Body Mass Index 26.3 General: AO X 2, no acute distress Resp: CTA bilateral, no accessory muscles used CVS: S1,S2,RRR GI: soft, non tender, non distended Neuro: motor grossly intact, alert Psych: appropriate affect, poor insight Objective Data Active Medications Acetaminophen (Acetaminophen 325 Mg Tablet) 650 mg PO Q6H PRN PRN Reason: Pain, Mild 1-3,fever,headache Last Admin: 11/10/24 09:49 Dose: 650 mg Documented By: MARY Calcium Carbonate (Calcium Carbonate 750 Mg Tab.Chew) 750 mg PO Q4H PRN PRN Reason: Heartburn Ceftriaxone Sodium (Ceftriaxone Sodium 1 Gm Vial) 1 gm IVPUSH Q24H [facility] Heparin Sodium (Porcine) (Heparin Sodium,Porcine 5,000 Unit/Ml Vial) 5,000 unit SUBCUT Q12H [facility] Last Admin: 11/10/24 08:44 Dose: 5,000 unit Documented By: MARY Lactated Ringer's (Lr) 1,000 mls @ 80 mls/hr IVCONT .[id number] [facility] Last Admin: 11/10/24 08:44 Dose: 80 mls/hr Documented By: MARY Magnesium Hydroxide (Milk Of Magnesia 30 Ml Oral.Susp) 30 ml PO DAILY PRN PRN Reason: Constipation Melatonin (Melatonin 3 Mg Tablet) 6 mg PO BEDTIME PRN PRN Reason: Insomnia Last Admin: 11/10/24 01:51 Dose: 6 mg Documented By: BRITTA Sodium Chloride (0.9 % Sodium Chloride Flush 3 Ml Syringe) 3 ml IVFLUSH QSHIFT [facility] Last Admin: 11/10/24 08:44 Dose: 3 ml Documented By: MARY Trazodone HCl (Trazodone Hcl 50 Mg Tablet) 50 mg PO BEDTIME PRN PRN Reason: Sleep Last Admin: 11/10/24 00:27 Dose: 50 mg Documented By: BIRTTA Labs 11/10/24 05:59 11/10/24 05:59 Labs: Laboratory Results - last 24 hr 11/09/24 11/09/24 11/09/24 19:03 19:12 19:54 MCV 89.5 MCH 30.8 MCHC 34.4 RDW 12.2 Plt Count 320 D MPV 10.1 Immature Gran % (Auto) 0.5 H Neut % (Auto) 81.7 H Lymph % (Auto) 5.8 L [place] % (Auto) 7.2 Eos % (Auto) 4.3 H Baso % (Auto) 0.5 Lymph # (Auto) 0.6 L [place] # (Auto) 0.7 Eos # (Auto) 0.4 Baso # (Auto) 0.1 Abs Immat Gran (auto) 0.05 H Absolute Neuts (auto) 7.8 Absolute Nucleated RBC 0.000 Nucleated RBC % (auto) 0.0 Anion Gap 20 Estim Creat Clear Calc 3.0 Estimated GFR 3 Random Glucose 118 H Lactic Acid 0.7 Calcium 8.7 Magnesium 3.7 H* Total Bilirubin 0.5 AST 12 ALT < 6 Alkaline Phosphatase 84 Total Creatine Kinase B-Natriuretic Peptide 151 H Total Protein 6.8 Albumin 3.6 Lipase 47 TSH Urine Color Straw Urine Appearance Hazy Urine pH 6.0 Ur Specific [place] 1.010 Urine Protein 100 (2+) H Urine Glucose (UA) Negative Urine Ketones Negative Urine Blood Small (1+) H Urine Nitrite Negative Ur Leukocyte Esterase Moderate (2+) H Urine RBC 0-2 Urine WBC >50 H Ur Squamous Epith Cells 0-2 Urine Bacteria None Seen Hyaline Casts 0-2 Influenza Type A (PCR) NEGATIVE Influenza Type B (PCR) NEGATIVE RSV RNA Qual (PCR) NEGATIVE SARS-CoV-2 RNA (RT-PCR) NEGATIVE 11/09/24 11/10/24 19:58 05:59 MCV 91.0 MCH 30.4 MCHC 33.4 RDW 12.2 Plt Count 299 MPV 11.0 Immature Gran % (Auto) 0.6 H Neut % (Auto) 80.9 H Lymph % (Auto) 5.9 L [place] % (Auto) 6.4 Eos % (Auto) 5.3 H Baso % (Auto) 0.9 Lymph # (Auto) 0.5 L [place] # (Auto) 0.5 Eos # (Auto) 0.4 Baso # (Auto) 0.1 Abs Immat Gran (auto) 0.05 H Absolute Neuts (auto) 6.6 Absolute Nucleated RBC 0.000 Nucleated RBC % (auto) 0.0 Anion Gap 20 Estim Creat Clear Calc 3.1 Estimated GFR 3 Random Glucose 106 Lactic Acid Calcium 8.2 L Magnesium Total Bilirubin AST ALT Alkaline Phosphatase Total Creatine Kinase 68 B-Natriuretic Peptide Total Protein Albumin Lipase TSH 1.32 Urine Color Urine Appearance Urine pH Ur Specific [place] Urine Protein Urine Glucose (UA) Urine Ketones Urine Blood Urine Nitrite Ur Leukocyte Esterase Urine RBC Urine WBC Ur Squamous Epith Cells Urine Bacteria Hyaline Casts Influenza Type A (PCR) Influenza Type B (PCR) RSV RNA Qual (PCR) SARS-CoV-2 RNA (RT-PCR) Assessment and Plan (1) Acute renal failure: Status: Acute Plan 84F PMH htn, dmentia, hld, gerd, presented with weakness found to have elizabeth ELIZABETH - ATN conitnue iv hydration nephro eval work up ongoing htn hold arb gerd hold ppi dvt prophylaxis - hep sq dnr/dni reason for continued hospitalization:working up elizabeth Quality Stroke Does the patient have a stroke diagnosis?: No VTE Prior VTE?: No VTE Risk Level:: Medical - moderate - high VTE Device Contraindication: Treatment Not Indicated VTE Drug Contraindication: N/A - Med Ordered
[2024-11-10 11:20] LABS: EOS Counted 7 CELLS; EOS QC POS YES; EOS Stain Quality OK YES; WBC, Counted 100 CELLS
[2024-11-10 11:55] VITALS: BP 120/60; PULSE 76; RESP 18; TEMP 36.5; O2SAT 96
--- NOTE | 2024-11-10 13:15 | PM.CNNEP ---
History of Present Illness Reason for Consult Consult date: 11/10/24 Reason for consult: Acute kidney injury Chief Complaint Chief complaint: ELIZABETH History of Present Illness Narrative: 84-year-old female past medical history of hypertension on metoprolol, losartan, amlodipine and Lasix at home, possibly dementia but does not have a diagnosis yet living alone in a elderly community mostly independent on her activities of daily life. She developed diarrhea, possibly watery, not sure how many times a day for the past 5-6 days. She had an episode of incontinence when the niece had to clean her pants that is when she noted the diarrhea was possibly watery. Her blood pressures were running low at home, so she was brought into the ED. Labs upon admission is noted to have severe ELIZABETH, creatinine increasing from a baseline of 0.7 to 13.3, with normal potassium, anion gap metabolic acidosis and mild hyponatremia. CT abdomen and pelvis showed normal size kidneys, no obstruction. Urinalysis showed 2+ protein, small amount of blood, RBCs 0-2, WBCs greater than 50, urine eosinophils 7% Review of Systems Review of Systems Unable to obtain as patient is confused PMFSH Past Medical History Medical History Hyponatremia Intertrochanteric fracture of right femur Hyperlipidemia High blood pressure Social History Social History Household Members: None Household Members Other:: lives alone in apartment Housing: Apartment Do you presently have visiting nurse or other home services: No (only speech pathologist) Patient Tobacco Use Status: Former Tobacco user Smoked in Last 30 Days: No e-Cigarette/Vaping Use: Former Use Patient Interested in Nicotine Replacement: No Patient Given Instructions on How to Stop Smoking: No Second Hand Smoke Exposure: No Use of substances other than those prescribed or required for medical reasons: No Currently Displaying Signs/Symptoms of Drug Intoxication Withdrawal: No Any prior treatment program specific to substance use: No Have you been hit, kicked, punched, or otherwise hurt by someone within the past year? If so, by whom?: No Do you feel safe in your current relationship?: No Is there a partner from a previous relationship who is making you feel unsafe now?: No Are you made to feel afraid or neglected: No Hoahaoism Healthcare Practices: patient would like to see a mobile paint specialist Advance Directives: No Advance Directives Information Provided: No Advance Directives on File: No Do you have a plan to hurt others: No Plan Recently lost weight without trying: No Eating poorly because of decreased appetite: Yes Nutrition Risks: No Nutritional Risk Patient : No : No Poor oral hygiene: No Meds Allergies Allergy/AdvReac Type Severity Reaction Status Date / Time No Known Allergies Allergy Verified 11/09/24 18:45 Active Medications: Current Medications Acetaminophen (Acetaminophen 325 Mg Tablet) 650 mg PO Q6H PRN PRN Reason: Pain, Mild 1-3,fever,headache Last Admin: 11/10/24 09:49 Dose: 650 mg Calcium Carbonate (Calcium Carbonate 750 Mg Tab.Chew) 750 mg PO Q4H PRN PRN Reason: Heartburn Ceftriaxone Sodium (Ceftriaxone Sodium 1 Gm Vial) 1 gm IVPUSH Q24H [facility] Heparin Sodium (Porcine) (Heparin Sodium,Porcine 5,000 Unit/Ml Vial) 5,000 unit SUBCUT Q12H [facility] Last Admin: 11/10/24 08:44 Dose: 5,000 unit Lactated Ringer's (Lr) 1,000 mls @ 80 mls/hr IVCONT .[id number] [facility] Last Admin: 11/10/24 08:44 Dose: 80 mls/hr Lactated Ringer's (Lr) 1,000 mls @ 999 mls/hr IV .Q1H1M AFSANEH Stop: 11/10/24 14:15 Lactated Ringer's (Lr) 1,000 mls @ 999 mls/hr IV .Q1H1M ONE Stop: 11/10/24 14:07 Magnesium Hydroxide (Milk Of Magnesia 30 Ml Oral.Susp) 30 ml PO DAILY PRN PRN Reason: Constipation Melatonin (Melatonin 3 Mg Tablet) 6 mg PO BEDTIME PRN PRN Reason: Insomnia Last Admin: 11/10/24 01:51 Dose: 6 mg Quetiapine Fumarate (Quetiapine Fumarate 25 Mg Tablet) 25 mg PO BEDTIME AFSANEH Sodium Chloride (0.9 % Sodium Chloride Flush 3 Ml Syringe) 3 ml IVFLUSH QSHIFT [facility] Last Admin: 11/10/24 08:44 Dose: 3 ml Trazodone HCl (Trazodone Hcl 50 Mg Tablet) 50 mg PO BEDTIME PRN PRN Reason: Sleep Last Admin: 11/10/24 00:27 Dose: 50 mg Home Medications ?Medication ?Instructions ?Recorded ?Confirmed ?Last Taken ?Type calcium 600 mg (as 1 tab PO DAILY@1600 08/05/22 11/09/24 11/08/24 History carbonate)-vitamin D3 5 mcg (200 unit) tablet losartan 100 mg tablet 100 mg PO DAILY@1600 08/05/22 11/09/24 11/08/24 History lovastatin 10 mg tablet 10 mg PO DAILY@1200 08/05/22 11/09/24 11/08/24 History metoprolol succinate 200 mg 200 tab PO DAILY@0800 08/05/22 11/09/24 11/09/24 History tablet,extended release 24 hr psyllium 1 packet PO DAILY@0800 08/05/22 11/09/24 11/09/24 History amlodipine 5 mg tablet 10 mg PO DAILY 11/09/24 11/09/24 11/09/24 History furosemide 20 mg tablet 20 mg PO DAILY 11/09/24 11/09/24 11/09/24 History magnesium glycinate 100 mg PO DAILY 11/09/24 11/09/24 11/09/24 History omeprazole 40 mg capsule,delayed 40 mg PO DAILY@0630 11/09/24 11/09/24 11/09/24 History release trazodone 50 mg tablet 75 mg PO BEDTIME PRN insomnia 11/09/24 11/09/24 Unknown History Physical Exam Vital Signs: Last Vital Signs Temp 97.7 F 11/10/24 11:55 Pulse 76 11/10/24 11:55 Resp 18 11/10/24 11:55 BP 120/60 11/10/24 11:55 Pulse Ox 96 11/10/24 11:55 O2 Del Method Room Air 11/10/24 11:55 BMI result Body Mass Index 26.3 General: Elderly lady not in acute distress, ill appearing and tired appearing, sitting in the bed Nutritional Appearance: well nourished and overweight Eyes: appearance normal, both eyes and all related structures; Alignment and Position: alignment normal and position normal Neck: No lymphadenopathy, no thyromegaly Resp: bilateral air entry equal, no added sounds present Cardio: Regular rate, regular rhythm; Heart sounds: S1 normal heart sound present and S2 normal heart sound present GI: soft, has additional fat when compared to rest of the body, nontender, no guarding, no hepatosplenomegaly : bladder normal to inspection, bladder normal to palpation, no renal angle tenderness Skin: no rashes or lesions noted and elasticity normal Neuro: Confused, partly oriented, moves all extremities Results Lab Results 11/10/24 05:59 11/10/24 05:59 Lab results: Chemistry 11/09/24 11/10/24 19:03 05:59 Sodium 132 L 133 L Potassium 4.6 4.4 Carbon Dioxide 19 L 17 L BUN 83 H 78 H Creatinine 13.33 H* 12.54 H* Calcium 8.7 8.2 L Hematology 11/09/24 11/10/24 19:03 05:59 WBC 9.6 8.1 Hgb 10.0 L D 9.8 L Plt Count 320 D 299 Urinalysis 11/09/24 19:12 Urine Color Straw Urine Appearance Hazy Urine pH 6.0 Ur Specific [place] 1.010 Urine Protein 100 (2+) H Urine Glucose (UA) Negative Urine Ketones Negative Urine Blood Small (1+) H Urine Nitrite Negative Ur Leukocyte Esterase Moderate (2+) H Urine RBC 0-2 Urine WBC >50 H Ur Squamous Epith Cells 0-2 Hyaline Casts 0-2 Assessment and Plan (1) Essential hypertension: Status: Acute (2) Acute renal failure: Qualifiers: Acute renal failure type: unspecified Qualified Code(s): N17.9 - Acute kidney failure, unspecified Status: Acute (3) Acute UTI: Status: Acute (4) Acute blood loss anemia: Status: Acute (5) Acute metabolic encephalopathy: Status: Acute Plan Acute kidney injury: - KDIGO stage 3 , secondary to a combination of volume depletion from diarrhea while the patient was on losartan and Lasix. Bedside echo showed collapsing IVC, small RV, good LV systolic function. Patient also has elevated urine eosinophil about 7%, she recently started taking omeprazole. However the specificities of urine eosinophil are borderline. We will bolus the patient with additional 1 L of LR, we will repeat a CMP if the creatinine is improving we will continue with the current treatment plan, if the creatinine does not improve then we will consider adding oral prednisone, stopping all the medications that can cause AIN including omeprazole. Although the risks for glomerular nephritis is low at this age, we will send ESR, CRP, ANCA, ANGELIQUE, serum and urine protein electrophoresis, serum free light chains, complement levels. Explained that renal biopsy is invasive procedure and she has to lie on her belly for over 20 minutes with increased risk for bleeding and pain at this age- family deferred any plans for biopsy. - baseline creatinine is 0.7 this morning is 12.54 and is currently trending slightly down when compared to 13.3 yesterday - Urinalysis shows 2+ protein, 0-2 RBCs, WBCs greater than 50 with cultures pending - CT abdomen showed normal-size kidneys, no obstruction - monitor renal function daily - continue to hold losartan in view of ELIZABETH, avoid nephrotoxic medications not limited to NSAIDs, contrast etc. - dose all the medications as per GFR Hyponatremia: Possibly secondary to diarrhea, should correct with volume repletion High anion gap metabolic acidosis: - secondary to acute kidney injury - no indication for bicarb replacement, continue to closely monitor Hypertension: - blood pressure is on the lower side - continue to hold home amlodipine, metoprolol, losartan. If the blood pressure improves restart metoprolol followed by amlodipine Thanks for your consult, we will continue to follow-up this patient with you. Total time managing care of this patient today: 35 minutes. Procedures Date of Service Date of Service: 11/10/24
[2024-11-10 13:22] LABS: Alanine Aminotransferase < 6 U/L (0-31); Albumin Level 3.1 g/dL (3.5-5.0); Alkaline Phosphatase 74 U/L (39-117); Anion Gap 20 (12-20); Aspartate Amino Transferase 16 U/L (5-31); Bilirubin Total 0.4 mg/dL (0.0-1.0); Blood Urea Nitrogen 84 mg/dL (9-16); C Reactive Protein 5.24 mg/dL (< or = 0.50); Calcium 8.2 mg/dL (8.4-10.2); Carbon Dioxide 18 mmol/L (22-29); Chloride 102 mmol/L (96-108); Creatinine Clr Calc Pharmacy 3.3; Estimated Glomerular Filt Rate 3; Glucose Random 118 mg/dL (60-115); Potassium 4.6 mmol/L (3.3-5.1); Sodium 135 mmol/L (135-145); Total Protein 5.9 g/dL (6.5-8.0)
[2024-11-10 13:51] LABS: Erythrocyte Sedimentation Rate 67 MM/HR (0-20)
--- NOTE | 2024-11-10 13:56 | MHC.CM.PN ---
IMM 11/10. Pt lives alone at home, she has family support from her niece, she is active with [facility] for speech therapy, and uses a walker. Pts niece will transport her home at discharge. HCP on file and verified. PCP: Dr. Brandon Perdomo
[2024-11-10] MEDS: Lactated Ringers 1,000 ML 999 ML IV (14:05)
[2024-11-10 19:32] VITALS: BP 145/65; PULSE 69; RESP 14; TEMP 36.1; O2SAT 96
[2024-11-10] MEDS: QUEtiapine Fumarate 25 MG TABLET PO (20:19)
[2024-11-10] MEDS: cefTRIAXone sodium 1 GM VIAL IVPUSH (20:21)
[2024-11-11] MEDS: Lactated Ringers 1,000 ML 80 ML IVCONT ×3 (03:13→20:47)
[2024-11-11 03:22] VITALS: BP 111/54; PULSE 70; RESP 18; TEMP 36.8; O2SAT 94
[2024-11-11 07:47] LABS: Hemoglobin 8.7 g/dl (12.0-16.0); Mean Corpuscular HGB Conc 33.5 g/dl (31.0-35.0); Mean Corpuscular Hemoglobin 30.3 pg (27.0-33.0); Mean Corpuscular Volume 90.6 fL (80.0-98.0); Mean Platelet Volume 10.5 fL (9.4-12.3); Platelet Count 264 X10*3/uL (160-400); Red Blood Count 2.87 X10*6/uL (4.20-5.50); Red Cell Distribution Width 12.3 % (11.0-16.0); White Blood Count 6.6 X10*3/uL (4.8-10.8)
[2024-11-11 08:00] VITALS: BP 112/44; PULSE 74; RESP 18; TEMP 37.2; O2SAT 94
[2024-11-11 08:21] LABS: Anion Gap 19 (12-20); Blood Urea Nitrogen 70 mg/dL (9-16); Calcium 7.9 mg/dL (8.4-10.2); Carbon Dioxide 17 mmol/L (22-29); Chloride 105 mmol/L (96-108); Creatinine Clr Calc Pharmacy 3.6; Estimated Glomerular Filt Rate 3; Glucose Random 81 mg/dL (60-115); Potassium 4.4 mmol/L (3.3-5.1); Sodium 137 mmol/L (135-145)
--- NOTE | 2024-11-11 09:29 | P.PNIM_ITS ---
Subjective Subjective Date of Service: 11/11/24 Interval History: no complaints Physical Exam 2 Vital Signs: Vital Signs: Last Vital Signs Temp 98.9 F 11/11/24 08:00 Pulse 74 11/11/24 08:00 Resp 18 11/11/24 08:00 BP 112/44 L 11/11/24 08:00 Pulse Ox 94 11/11/24 08:00 O2 Del Method Room Air 11/11/24 08:00 BMI result Body Mass Index 26.3 General: AO X 2, no acute distress Resp: CTA bilateral, no accessory muscles used CVS: S1,S2,RRR GI: soft, non tender, non distended Neuro: motor grossly intact, alert Psych: appropriate affect, poor insight Objective Data Active Medications Acetaminophen (Acetaminophen 325 Mg Tablet) 650 mg PO Q6H PRN PRN Reason: Pain, Mild 1-3,fever,headache Last Admin: 11/10/24 09:49 Dose: 650 mg Documented By: TRUDYPADonna Calcium Carbonate (Calcium Carbonate 750 Mg Tab.Chew) 750 mg PO Q4H PRN PRN Reason: Heartburn Heparin Sodium (Porcine) (Heparin Sodium,Porcine 5,000 Unit/Ml Vial) 5,000 unit SUBCUT Q12H [facility] Last Admin: 11/10/24 20:20 Dose: 5,000 unit Documented By: FANI Magnesium Hydroxide (Milk Of Magnesia 30 Ml Oral.Susp) 30 ml PO DAILY PRN PRN Reason: Constipation Melatonin (Melatonin 3 Mg Tablet) 6 mg PO BEDTIME PRN PRN Reason: Insomnia Last Admin: 11/10/24 01:51 Dose: 6 mg Documented By: BRITTA Quetiapine Fumarate (Quetiapine Fumarate 25 Mg Tablet) 25 mg PO BEDTIME [facility] Last Admin: 11/10/24 20:19 Dose: 25 mg Documented By: FANI Sodium Chloride (0.9 % Sodium Chloride Flush 3 Ml Syringe) 3 ml IVFLUSH QSHIFT [facility] Last Admin: 11/11/24 01:27 Dose: Not Given Documented By: BRIAN Non-Admin Reason: IV Running Trazodone HCl (Trazodone Hcl 50 Mg Tablet) 50 mg PO BEDTIME PRN PRN Reason: Sleep Last Admin: 11/10/24 00:27 Dose: 50 mg Documented By: BRITTA Labs 11/11/24 07:34 11/11/24 07:34 Labs: Laboratory Results - last 24 hr 11/09/24 11/10/24 11/11/24 19:12 12:46 07:34 MCV 90.6 MCH 30.3 MCHC 33.5 RDW 12.3 Plt Count 264 MPV 10.5 Absolute Nucleated RBC 0.000 Nucleated RBC % (auto) 0.0 ESR 67 H Anion Gap 20 19 Estim Creat Clear Calc 3.3 3.6 Estimated GFR 3 3 Random Glucose 118 H 81 Calcium 8.2 L 7.9 L Total Bilirubin 0.4 AST 16 ALT < 6 Alkaline Phosphatase 74 C-Reactive Protein 5.24 H Total Protein 5.9 L Albumin 3.1 L Urine Eosinophils % 7.0 Microbiology Microbiology Results: Microbiology 11/09/24 19:58 Blood Culture - Preliminary Blood - Venous No growth after 24 hours. 11/09/24 19:55 Blood Culture - Preliminary Blood - Venous No growth after 24 hours. 11/09/24 Unknown Urine Culture - Preliminary Urine clean catch - Clean Catch Midstream No growth to date. Assessment and Plan (1) Acute renal failure: Status: Acute Plan 84F PMH htn, dmentia, hld, gerd, presented with weakness found to have elizabeth ELIZABETH - ATN vs AIN minimal improvement nephro following work up ongoing htn hold arb gerd hold ppi dementia with acute hospital delerium and insomnia did well with seroquel 25mg bedtime dvt prophylaxis - hep sq dnr/dni reason for continued hospitalization:working up elizabeth Quality Stroke Does the patient have a stroke diagnosis?: No VTE Prior VTE?: No VTE Risk Level:: Medical - moderate - high VTE Device Contraindication: Treatment Not Indicated VTE Drug Contraindication: N/A - Med Ordered
[2024-11-11] MEDS: Heparin Sodium,Porcine 5,000 UNIT/ML VIAL 5000 UNIT SUBCUT ×2 (09:32→20:46)
[2024-11-11] MEDS: 0.9 % Sodium Chloride Flush 3 ML SYRINGE IVFLUSH (09:38)
[2024-11-11] MEDS: predniSONE 20 MG TABLET 40 MG PO (10:00)
--- NOTE | 2024-11-11 12:49 | P.PNCC_ITS ---
Subjective Subjective Date of Service: 11/11/24 Interval History: Patient is symptomatically much better, able to ambulate in the hallway and [place] Creatinine came down to 10.9; received 4.2 L of fluids yesterday with urine output of 1.3 L Critical Care Time (minutes): 35 Physical Exam 2 Vital Signs: Vital Signs: Last Vital Signs Temp 98.9 F 11/11/24 08:00 Pulse 74 11/11/24 08:00 Resp 18 11/11/24 08:00 BP 112/44 L 11/11/24 08:00 Pulse Ox 94 11/11/24 08:00 O2 Del Method Room Air 11/11/24 08:00 BMI result Body Mass Index 26.3 General: Elderly lady, pleasant and slightly confused Nutritional Appearance: well nourished and normal weight Eyes: appearance normal, both eyes and all related structures; Alignment and Position: alignment normal and position normal Neck: No lymphadenopathy, no thyromegaly Resp: bilateral air entry equal, occasional added sounds present Cardio: Regular rate, regular rhythm; Heart sounds: S1 normal heart sound present and S2 normal heart sound present GI: soft, nontender, no guarding, no hepatosplenomegaly : bladder normal to inspection, bladder normal to palpation, no renal angle tenderness Skin: no rashes or lesions noted and elasticity normal Neuro: Slight confusion present, no focal deficits and moves all extremities Objective Data Labs 11/11/24 07:34 11/11/24 07:34 Labs: Laboratory Results - last 24 hr 11/10/24 11/11/24 12:46 07:34 WBC 6.6 RBC 2.87 L Hgb 8.7 L Hct 26.0 L MCV 90.6 MCH 30.3 MCHC 33.5 RDW 12.3 Plt Count 264 MPV 10.5 Absolute Nucleated RBC 0.000 Nucleated RBC % (auto) 0.0 ESR 67 H Sodium 135 137 Potassium 4.6 4.4 Chloride 102 105 Carbon Dioxide 18 L 17 L Anion Gap 20 19 BUN 84 H 70 H Creatinine 11.94 H* 10.98 H* Estim Creat Clear Calc 3.3 3.6 Estimated GFR 3 3 Random Glucose 118 H 81 Calcium 8.2 L 7.9 L Total Bilirubin 0.4 AST 16 ALT < 6 Alkaline Phosphatase 74 C-Reactive Protein 5.24 H Total Protein 5.9 L Albumin 3.1 L Microbiology Microbiology Results: Microbiology 11/09/24 Unknown Urine clean catch - Clean Catch Midstream Urine Culture - Final No growth. 11/09/24 19:58 Blood - Venous Blood Culture - Preliminary No growth after 24 hours. 11/09/24 19:55 Blood - Venous Blood Culture - Preliminary No growth after 24 hours. Progress Note: A&P Assessment and plan (1) Essential hypertension: Status: Acute (2) Acute renal failure: Status: Acute (3) Acute UTI: Status: Acute Plan Acute kidney injury: - KDIGO stage 3 , secondary to a combination of volume depletion from diarrhea while the patient was on losartan and Lasix. Bedside echo showed small IVC 1.38 cm fluctuating with respiration, small RV, good LV systolic function. Patient also has elevated urine eosinophil about 7%, she recently started taking omeprazole. However the specificities of urine eosinophil are borderline. But since the creatinine response to fluid challenge was not as much as expected we will start the patient on prednisone 40 mg for possible AIN to be tapered over 2 weeks. Although the risks for glomerular nephritis is low at this age, we sent ESR, CRP, ANCA, ANGELIQUE, serum and urine protein electrophoresis, serum free light chains, complement levels which has still pending. Explained that renal biopsy is invasive procedure and she has to lie on her belly for over 20 minutes with increased risk for bleeding and pain at this age- family deferred any plans for biopsy. - baseline creatinine is 0.7, creatinine decreased to 10.9 this morning from 12.5 yesterday - Urinalysis shows 2+ protein, 0-2 RBCs, WBCs greater than 50 with cultures negative - CT abdomen showed normal-size kidneys, no obstruction - monitor renal function daily - continue to hold losartan in view of ELIZABETH, avoid nephrotoxic medications not limited to NSAIDs, contrast etc. - dose all the medications as per GFR High anion gap metabolic acidosis: - secondary to acute kidney injury - no indication for bicarb replacement, continue to closely monitor Hypertension: - blood pressure is on the lower side - continue to hold home amlodipine, metoprolol, losartan. If the blood pressure improves restart metoprolol followed by amlodipine Thanks for your consult, we will continue to follow-up this patient with you. Total time managing care of this patient today: 35 minutes. Quality Stroke Does the patient have a stroke diagnosis?: No VTE Prior VTE?: No VTE Risk Level:: Medical - moderate - high VTE Device Contraindication: Treatment Not Indicated VTE Drug Contraindication: N/A - Med Ordered
[2024-11-11 20:00] VITALS: BP 127/62; PULSE 77; RESP 16; TEMP 36.1; O2SAT 96
[2024-11-11] MEDS: QUEtiapine Fumarate 25 MG TABLET PO (20:46)
[2024-11-12] VITALS (7 sets, daily range): BP systolic 134–162; BP diastolic 61–77; PULSE 66–81; RESP 16–20; TEMP 36.7–37.3; O2SAT 92–97
[2024-11-12 07:07] LABS: Hematocrit 27.1 % (37.0-47.0); Hemoglobin 9.3 g/dl (12.0-16.0); Mean Corpuscular HGB Conc 34.3 g/dl (31.0-35.0); Mean Corpuscular Hemoglobin 30.8 pg (27.0-33.0); Mean Corpuscular Volume 89.7 fL (80.0-98.0); Mean Platelet Volume 10.5 fL (9.4-12.3); Platelet Count 303 X10*3/uL (160-400); Red Blood Count 3.02 X10*6/uL (4.20-5.50); Red Cell Distribution Width 12.4 % (11.0-16.0); White Blood Count 5.8 X10*3/uL (4.8-10.8)
[2024-11-12 07:18] LABS: Anion Gap 18 (12-20); Blood Urea Nitrogen 64 mg/dL (9-16); Calcium 8.5 mg/dL (8.4-10.2); Carbon Dioxide 16 mmol/L (22-29); Chloride 109 mmol/L (96-108); Creatinine Clr Calc Pharmacy 4.3; Estimated Glomerular Filt Rate 4; Glucose Random 125 mg/dL (60-115); Magnesium 3.1 mg/dL (1.6-2.6); Potassium 3.9 mmol/L (3.3-5.1); Sodium 139 mmol/L (135-145)
[2024-11-12] MEDS: predniSONE 20 MG TABLET 40 MG PO (07:45)
[2024-11-12] MEDS: 0.9 % Sodium Chloride Flush 3 ML SYRINGE IVFLUSH ×2 (07:45→20:43)
[2024-11-12] MEDS: Lactated Ringers 1,000 ML 80 ML IVCONT ×2 (07:45→20:41)
[2024-11-12] MEDS: Heparin Sodium,Porcine 5,000 UNIT/ML VIAL 5000 UNIT SUBCUT ×2 (07:45→20:41)
[2024-11-12] MEDS: Milk of Magnesia 30 ML ORAL.SUSP PO (07:52)
[2024-11-12] MEDS: Acetaminophen 325 MG TABLET 650 MG PO (07:58)
--- NOTE | 2024-11-12 09:30 | P.PNNP_ITS ---
Subjective Subjective Date of Service: 11/12/24 Interval history: 84 y/o female with a medical history of HTN, HLD, gerd, dementia. presented 11/09 with weakness, ELIZABETH after x5 days of diarrhea, reduced PO intake on losartan and lasix at home. Nephrology consulted for ELIZABETH. Niece provides most of history today; patient awake and alert but minimally responsive to questions verbally, states she wants to go home. Niece states not yet back to her baseline mental status but has had some improvement. creatinine on presentation 13, last creatinine prior to presentation 0.71. patient has been receiving IVF and prednisone and creatinine has been trending down, 11/12 is 9.09 oral prednisone 40mg daily for potential AIN- omeprazole has been held. Physical Exam 2 Vital Signs: Vital Signs: Last Vital Signs Temp 98.1 F 11/12/24 07:41 Pulse 76 11/12/24 07:41 Resp 18 11/12/24 07:41 BP 140/71 H 11/12/24 07:41 Pulse Ox 97 11/12/24 07:41 O2 Del Method Room Air 11/12/24 07:41 BMI result Body Mass Index 26.3 Const: General: no acute distress, alert and awake Resp: Effort & Inspection: normal respiratory effort Auscultation: clear to auscultation bilaterally Cardio: Rate: regular rate Rhythm: regular rhythm Heart sounds: S1 normal heart sound present and S2 normal heart sound present GI: Palpation (GI): Soft to palpation and nontender : General: Yes no CVA tenderness Back/Spine/Pelvis: Back: no CVA tenderness Skin: Rashes: no rashes Extrem: General: Yes edema (BLE edema +2) Objective Data Labs 11/12/24 06:37 11/12/24 06:37 Labs: Laboratory Results - last 24 hr 11/12/24 06:37 WBC 5.8 RBC 3.02 L Hgb 9.3 L Hct 27.1 L MCV 89.7 MCH 30.8 MCHC 34.3 RDW 12.4 Plt Count 303 MPV 10.5 Absolute Nucleated RBC 0.000 Nucleated RBC % (auto) 0.0 Sodium 139 Potassium 3.9 Chloride 109 H Carbon Dioxide 16 L Anion Gap 18 BUN 64 H Creatinine 9.09 H* Estim Creat Clear Calc 4.3 Estimated GFR 4 Random Glucose 125 H Calcium 8.5 D Magnesium 3.1 H Microbiology Microbiology Results: Microbiology 11/09/24 19:58 Blood - Venous Blood Culture - Preliminary No growth after 48 hours. 11/09/24 19:55 Blood - Venous Blood Culture - Preliminary No growth after 48 hours. 11/09/24 Unknown Urine clean catch - Clean Catch Midstream Urine Culture - Final No growth. Procedures Date of Service Date of Service: 11/12/24 Assessment & Plan Assessment and plan (1) Acute renal failure: Status: Acute (2) Acute metabolic encephalopathy: Status: Acute (3) Essential hypertension: Status: Acute Plan ELIZABETH likely tubular injury from dehydration while on PO losartan and lasix. May also have component of AIN given lack of robust response to fluids. continue oral prednisone for possible AIN, continue to hold omeprazole. GN lab workup pending Blood pressures acceptable (improving), continue to monitor. high AG metabolic acidosis from ELIZABETH, recommend sodium bicarb 650mg PO BID. may continue LR at 80mL/hr and will reassess volume status tomorrow. avoid nephrotoxins regular blood pressure checks, monitor I&O closely recommend daily electrolyte & renal studies Discussed with Dr Gar. Time Spent With Patient Time: Total time managing care of this patient today ____ minutes. Progress Note: Quality Stroke Does the patient have a stroke diagnosis?: No
--- NOTE | 2024-11-12 09:48 | HO.PM.IMPN ---
Subjective Subjective Date of Service: 11/12/24 Interval History: no complaints Physical Exam Vital Signs: Vital Signs: Last Vital Signs Temp 98.1 F 11/12/24 07:41 Pulse 76 11/12/24 07:41 Resp 18 11/12/24 07:41 BP 140/71 H 11/12/24 07:41 Pulse Ox 97 11/12/24 07:41 O2 Del Method Room Air 11/12/24 07:41 BMI result Body Mass Index 26.3 General: Elderly lady, pleasant and slightly confused Nutritional Appearance: well nourished and normal weight Eyes: appearance normal, both eyes and all related structures; Alignment and Position: alignment normal and position normal Neck: No lymphadenopathy, no thyromegaly Resp: bilateral air entry equal, occasional added sounds present Cardio: Regular rate, regular rhythm; Heart sounds: S1 normal heart sound present and S2 normal heart sound present GI: soft, nontender, no guarding, no hepatosplenomegaly : bladder normal to inspection, bladder normal to palpation, no renal angle tenderness Skin: no rashes or lesions noted and elasticity normal Neuro: Slight confusion present, no focal deficits and moves all extremities Objective Data Active Medications Acetaminophen (Acetaminophen 325 Mg Tablet) 650 mg PO Q6H PRN PRN Reason: Pain, Mild 1-3,fever,headache Last Admin: 11/12/24 07:58 Dose: 650 mg Documented By: VIRA Calcium Carbonate (Calcium Carbonate 750 Mg Tab.Chew) 750 mg PO Q4H PRN PRN Reason: Heartburn Heparin Sodium (Porcine) (Heparin Sodium,Porcine 5,000 Unit/Ml Vial) 5,000 unit SUBCUT Q12H [facility] Last Admin: 11/12/24 07:45 Dose: 5,000 unit Documented By: VIRA Lactated Ringer's (Lr) 1,000 mls @ 80 mls/hr IVCONT .[id number] [facility] Last Admin: 11/12/24 07:45 Dose: 80 mls/hr Documented By: VIRA Magnesium Hydroxide (Milk Of Magnesia 30 Ml Oral.Susp) 30 ml PO DAILY PRN PRN Reason: Constipation Last Admin: 11/12/24 07:52 Dose: 30 ml Documented By: VIRA Melatonin (Melatonin 3 Mg Tablet) 6 mg PO BEDTIME PRN PRN Reason: Insomnia Last Admin: 11/10/24 01:51 Dose: 6 mg Documented By: BRITTA Prednisone (Prednisone 20 Mg Tablet) 40 mg PO DAILY [facility] Last Admin: 11/12/24 07:45 Dose: 40 mg Documented By: VIRA Quetiapine Fumarate (Quetiapine Fumarate 25 Mg Tablet) 25 mg PO BEDTIME [facility] Last Admin: 11/11/24 20:46 Dose: 25 mg Documented By: YUE Sodium Chloride (0.9 % Sodium Chloride Flush 3 Ml Syringe) 3 ml IVFLUSH QSHIFT [facility] Last Admin: 11/12/24 07:45 Dose: 3 ml Documented By: VIRA Trazodone HCl (Trazodone Hcl 50 Mg Tablet) 50 mg PO BEDTIME PRN PRN Reason: Sleep Last Admin: 11/10/24 00:27 Dose: 50 mg Documented By: BRITTA Labs 11/12/24 06:37 11/12/24 06:37 Labs: Laboratory Results - last 24 hr 11/12/24 06:37 MCV 89.7 MCH 30.8 MCHC 34.3 RDW 12.4 Plt Count 303 MPV 10.5 Absolute Nucleated RBC 0.000 Nucleated RBC % (auto) 0.0 Anion Gap 18 Estim Creat Clear Calc 4.3 Estimated GFR 4 Random Glucose 125 H Calcium 8.5 D Magnesium 3.1 H Microbiology Microbiology Results: Microbiology 11/09/24 19:58 Blood Culture - Preliminary Blood - Venous No growth after 48 hours. 11/09/24 19:55 Blood Culture - Preliminary Blood - Venous No growth after 48 hours. 11/09/24 Unknown Urine Culture - Final Urine clean catch - Clean Catch Midstream No growth. Assessment and Plan (1) Acute renal failure: Status: Acute Plan 84F PMH htn, dmentia, hld, gerd, presented with weakness found to have elizabeth ELIZABETH - ATN vs AIN minimal improvement wtih iv fluids nephro following work up ongoing htn hold arb gerd hold ppi dementia with acute hospital delerium and insomnia did well with seroquel 25mg bedtime dvt prophylaxis - hep sq dnr/dni reason for continued hospitalization:working up elizabeth Quality Stroke Does the patient have a stroke diagnosis?: No VTE Prior VTE?: No VTE Risk Level:: Medical - moderate - high VTE Device Contraindication: Treatment Not Indicated VTE Drug Contraindication: N/A - Med Ordered
--- NOTE | 2024-11-12 13:40 | MHC.CM.PN ---
Per rounds, pt. is not medically cleared to DC, she requires ongoing care of ELIZABETH, CM to follow for DC needs.
[2024-11-12 14:38] LABS: Creatinine Urine 46.59 mg/dL; Total Protein Urine Random 17 mg/dL (<12)
[2024-11-12] MEDS: QUEtiapine Fumarate 25 MG TABLET PO (20:41)
[2024-11-12] MEDS: Sodium Bicarbonate 650 MG TABLET PO (20:41)
[2024-11-13 07:23] VITALS: BP 142/62; PULSE 68; RESP 16; TEMP 36.8; O2SAT 98
[2024-11-13 07:32] LABS: Hematocrit 26.1 % (37.0-47.0); Hemoglobin 8.9 g/dl (12.0-16.0); Mean Corpuscular HGB Conc 34.1 g/dl (31.0-35.0); Mean Corpuscular Hemoglobin 30.4 pg (27.0-33.0); Mean Corpuscular Volume 89.1 fL (80.0-98.0); Mean Platelet Volume 10.1 fL (9.4-12.3); Platelet Count 282 X10*3/uL (160-400); Red Blood Count 2.93 X10*6/uL (4.20-5.50); Red Cell Distribution Width 12.7 % (11.0-16.0); White Blood Count 8.3 X10*3/uL (4.8-10.8)
[2024-11-13 07:54] LABS: Anion Gap 14 (12-20); Blood Urea Nitrogen 49 mg/dL (9-16); Calcium 8.3 mg/dL (8.4-10.2); Carbon Dioxide 21 mmol/L (22-29); Chloride 110 mmol/L (96-108); Creatinine Clr Calc Pharmacy 6.7; Estimated Glomerular Filt Rate 7; Glucose Random 98 mg/dL (60-115); Potassium 3.3 mmol/L (3.3-5.1); Sodium 142 mmol/L (135-145)
--- NOTE | 2024-11-13 08:25 | P.PNNP_ITS ---
Subjective Subjective Date of Service: 11/13/24 Interval history: 84 y/o female with a medical history of HTN, HLD, gerd, dementia. presented 11/09 with weakness, ELIZABETH after x5 days of diarrhea, reduced PO intake on losartan and lasix at home. Nephrology consulted for ELIZABETH. creatinine on presentation 13, last creatinine prior to presentation 0.71. patient has been receiving IVF and prednisone and creatinine has been trending down, 11/12 is 9.09-- 11/13 is 5.95. oral prednisone 40mg daily for potential AIN- omeprazole has been held. patient continues to make urine. Physical Exam 2 Vital Signs: Vital Signs: Last Vital Signs Temp 98.3 F 11/13/24 07:23 Pulse 68 11/13/24 07:23 Resp 16 11/13/24 07:23 BP 142/62 H 11/13/24 07:23 Pulse Ox 98 11/13/24 07:23 O2 Del Method Room Air 11/13/24 07:23 BMI result Body Mass Index 26.3 Const: General: no acute distress, alert and awake Resp: Effort & Inspection: normal respiratory effort Auscultation: clear to auscultation bilaterally Cardio: Rate: regular rate Rhythm: regular rhythm Heart sounds: S1 normal heart sound present and S2 normal heart sound present GI: Palpation (GI): Soft to palpation and nontender : General: Yes no CVA tenderness Back/Spine/Pelvis: Back: no CVA tenderness Skin: Rashes: no rashes Extrem: General: Yes edema (BLE edema +2) Objective Data Labs 11/13/24 07:06 11/13/24 07:06 Labs: Laboratory Results - last 24 hr 11/12/24 11/13/24 Unknown 07:06 WBC 8.3 RBC 2.93 L Hgb 8.9 L Hct 26.1 L MCV 89.1 MCH 30.4 MCHC 34.1 RDW 12.7 Plt Count 282 MPV 10.1 Absolute Nucleated RBC 0.000 Nucleated RBC % (auto) 0.0 Sodium 142 Potassium 3.3 Chloride 110 H Carbon Dioxide 21 L Anion Gap 14 BUN 49 H Creatinine 5.95 H* Estim Creat Clear Calc 6.7 Estimated GFR 7 Random Glucose 98 Calcium 8.3 L U Random Total Protein 17 H Urine Creatinine 46.59 Microbiology Microbiology Results: Microbiology 11/09/24 19:58 Blood - Venous Blood Culture - Preliminary No growth after 48 hours. 11/09/24 19:55 Blood - Venous Blood Culture - Preliminary No growth after 48 hours. 11/09/24 Unknown Urine clean catch - Clean Catch Midstream Urine Culture - Final No growth. Procedures Date of Service Date of Service: 11/13/24 Assessment & Plan Assessment and plan (1) Acute renal failure: Status: Acute (2) Acute metabolic encephalopathy: Status: Acute (3) Essential hypertension: Status: Acute Plan ELIZABETH likely tubular injury from dehydration while on PO losartan and lasix. Also likely component of AIN given lack of robust response to fluids and significant improvement with steroid. continue oral prednisone for possible AIN, continue to hold omeprazole. Will arrange for 1 week follow up in office. GN lab workup pending Blood pressures acceptable (improving), may consider re-starting home blood pressure medications (recommend continuing to hold losartan until creatinine normalizes- will follow up outpatient). high AG metabolic acidosis from ELIZABETH resolving, may d/c oral bicarb. d/c LR at 80mL/hr and encourage PO hydration. avoid nephrotoxins regular blood pressure checks, monitor I&O closely recommend daily electrolyte & renal studies Discussed with Dr Gar. Time Spent With Patient Time: Total time managing care of this patient today ____ minutes. Progress Note: Quality Stroke Does the patient have a stroke diagnosis?: No
[2024-11-13] MEDS: predniSONE 20 MG TABLET 40 MG PO (08:30)
[2024-11-13] MEDS: Sodium Bicarbonate 650 MG TABLET PO (08:30)
[2024-11-13] MEDS: Lactated Ringers 1,000 ML 80 ML IVCONT (08:31)
[2024-11-13] MEDS: 0.9 % Sodium Chloride Flush 3 ML SYRINGE IVFLUSH (08:31)
[2024-11-13] MEDS: Heparin Sodium,Porcine 5,000 UNIT/ML VIAL 5000 UNIT SUBCUT (08:31)
--- NOTE | 2024-11-13 10:46 | P.DS_ITS ---
DS: Providers Provider Date of Service: 11/13/24 Date of admission: 11/09/24 21:13 Date of discharge: 11/13/24 Primary care physician: Brandon Perdomo MD Consults: 11/09/24 21:13 Consult to Nephrology Routine Consulting Provider: [facility] Reason for consultation: Indira DS: Diagnosis Discharge Diagnosis (1) Acute renal failure: Status: Acute (2) Acute metabolic encephalopathy: Status: Acute (3) Essential hypertension: Status: Acute DS: Summary Hospital Course Hospital Course: from initial hpi: 84-year-old female with a past medical history of hypertension, hyperlipidemia presented to the hospital with a chief complaint of generalized weakness. Most of the history obtained from the patient's healthcare proxy at bedside. Patient's healthcare proxy reported that patient generally lives alone and independent of ADLs. And the healthcare proxy checks on her frequently. Over the past couple days patient has been not feeling well. Has been having episodes of diarrhea for the past 3-4 days. Reported abdominal discomfort yesterday. Currently denies any abdominal pain. Also patient has been taking Lasix for mild CHF which she has been continuing during the course. Also has decreased appetite and decreased intake over the past few days. Denies any falls or injury. Patient denies any chest pain or palpitations. Denies any urinary symptoms Patient's healthcare proxy also mentioned that patient appears to be slightly confused than her baseline. Review of all other systems is negative except mentioned above hospital course: Patient was admitted for weakness due to severe acute kidney injury. Differential includes acute tubular necrosis due to hypoperfusion from Lasix, poor intake, losartan versus acute interstitial nephritis from omeprazole. Was treated with IV fluids, discontinuing of Lasix, omeprazole, losartan, amlodipine, Toprol. initially minimal improvement, patient given prednisone and creatinine has improved significantly from 13.3 to 5.95. On discharge will continue prednisone until seen by Nephrology, labs should be repeated will remain off losartan, Lasix, omeprazole, metoprolol. will restart amlodipine as blood pressure started to increase. Non-anion gap metabolic acidosis has resolved. Other etiologies including glomerular nephritis and multiple myeloma still have workup pending and should be followed up outpatient. For dementia with acute hospital delirium and insomnia patient was given Seroquel at bedtime with significant improvement. Patient is now medically stable will be discharged home. Time Attestation Discharge Coordination Time (in mins): 33 Quality: Safe Use of Opioids Does Pt have an Active Cancer Diagnosis on the Problem List?: No Quality: Stroke Does the patient have a stroke diagnosis?: No Physical Exam Vital Signs: Vital Signs: Last Vital Signs Temp 98.3 F 11/13/24 07:23 Pulse 68 11/13/24 07:23 Resp 16 11/13/24 07:23 BP 142/62 H 11/13/24 07:23 Pulse Ox 98 11/13/24 07:23 O2 Del Method Room Air 11/13/24 07:23 BMI result Body Mass Index 26.3 Const: General: no acute distress, alert and awake Resp: Effort & Inspection: normal respiratory effort Auscultation: clear to auscultation bilaterally Cardio: Rate: regular rate Rhythm: regular rhythm Heart sounds: S1 normal heart sound present and S2 normal heart sound present GI: Palpation (GI): Soft to palpation and nontender : General: Yes no CVA tenderness Back/Spine/Pelvis: Back: no CVA tenderness Skin: Rashes: no rashes Extrem: General: Yes edema (BLE edema +2) DS: Data Data Completed and Pending Completed studies during hospitalization [Text1]: Procedures Reposition Right Upper Femur with Intramedullary Internal Fixation Device, Percutaneous Approach (08/05/22) Labs on day of discharge: Laboratory Results - last 24 hr 11/12/24 11/13/24 Unknown 07:06 WBC 8.3 RBC 2.93 L Hgb 8.9 L Hct 26.1 L MCV 89.1 MCH 30.4 MCHC 34.1 RDW 12.7 Plt Count 282 MPV 10.1 Absolute Nucleated RBC 0.000 Nucleated RBC % (auto) 0.0 Sodium 142 Potassium 3.3 Chloride 110 H Carbon Dioxide 21 L Anion Gap 14 BUN 49 H Creatinine 5.95 H* Estim Creat Clear Calc 6.7 Estimated GFR 7 Random Glucose 98 Calcium 8.3 L U Random Total Protein 17 H Urine Creatinine 46.59 Preliminary micro results at discharge 11/09/24 19:58 Blood Culture - Preliminary Blood - Venous No growth after 48 hours. 11/09/24 19:55 Blood Culture - Preliminary Blood - Venous No growth after 48 hours. Discharge Plan Discharge Anticipated Discharge Date/Time: 11/13/24 10:41 Patient Disposition: Home Health Service Discharge Diagnosis: indira Referrals: Madhu Gar MD [Physician] - 1 Week Brandon Perdomo MD [Primary Care Provider] - 1 Week Discharge Medications: New prednisone 20 mg Tablet 40 mg PO DAILY Qty: 14 0RF Continued psyllium Packet 1 packet PO DAILY@0800 Rx Instructions: mix into at least 8 oz of water or juice before administering calcium carbonate-vitamin D3 600 mg-5 mcg (200 unit) Tablet 1 tab PO DAILY@1600 lovastatin 10 mg tablet 10 mg PO DAILY@1200 polyethylene glycol 3350 17 gram Powder In Packet 17 g PO DAILY Qty: 30 0RF trazodone 50 mg tablet 75 mg PO BEDTIME PRN (Reason: insomnia) amlodipine 5 mg tablet 10 mg PO DAILY magnesium glycinate 100 mg magnesium Capsule 100 mg PO DAILY Discontinued metoprolol succinate 200 mg tablet extended release 24 hr 200 tab PO DAILY@0800 losartan 100 mg tablet 100 mg PO DAILY@1600 omeprazole 40 mg capsule,delayed release(DR/EC) 40 mg PO DAILY@0630 furosemide 20 mg tablet 20 mg PO DAILY Discharge Orders: Discharge Order (Routine); Ordered 11/13/24 Ordered By: Herbert Watkins Diet: Advance to usual diet Activity on Discharge: As tolerated Stand Alone Forms: Patient Portal Discharge page Print Language: Italian Other Ambulatory Orders: Basic Metabolic Panel (Routine) Timeframe: 3 Days Facility: [facility] - Location: Laboratory Ordered By: Herbert Watkins Care Plan Goals: recovery Health Concerns: indira Plan of Treatment: stop losartan, toprol, omeprazole, lasix start prednisone 40mg daily until seen by nephrology Assessment: see above
--- NOTE | 2024-11-13 10:46 | W.MHC.F2F ---
Service Date Service Date: 11/13/24 Encounter Date of encounter: 11/13/24 Reasons for Services Signs and symptoms assessed: weakness, confusion Reason for retirement: medication management, medication treatment and teach disease management Reason for physical therapy: home safety and mobility and therapeutic exercises Reason for speech therapy: speech impairment Homebound: Leaving the home is medically contraindicated at this time without the asist of a device and/or another person due th the listed conditions above and below. Reason homebound: unsteady gait / fall risk Certification: Based on the above findings, I certify that this patient is confined to the home and needs intermittent retirement care, physical therapy and/or speech therapy, or continues to need occupational therapy. The patient is under my care, and I have initiated the establishment of the plan of care. The patient will be followed by a physician who will periodically review the plan of care. Time Spent With Patient Time: Total time managing care of this patient today ____ minutes.
--- NOTE | 2024-11-13 10:55 | PC.NURSE ---
Patients holloway removed on 11/13/24 at 11am without difficulty. 400 CC remaining in collection bag. Patient due to void at 1700, all other needs met at this time. Call ceballos within reach
--- NOTE | 2024-11-13 11:28 | MHC.CM.PN ---
Second IMM given 11/13. Pt is medically cleared for discharge home with resumption of previous [facility] services. Pts niece will transport her home today.
[2024-11-13 11:41] VITALS: BP 140/70; PULSE 74; RESP 16; TEMP 36.2; O2SAT 94
[2024-11-13 15:49] LABS: Complement C3 125 mg/dL
[2024-11-13 19:24] LABS: Prot Elec - Albumin 2.9 g/dL (3.8-4.8); Prot Elec - Alpha1 0.5 g/dL (0.2-0.3); Prot Elec - Alpha2 0.8 g/dL (0.5-0.9); Prot Elec - Beta 1 0.3 g/dL (0.4-0.6); Prot Elec - Beta 2 0.4 g/dL (0.2-0.5); Prot Elec - Gamma 0.8 g/dL (0.8-1.7); Prot Elec - Total Protein 5.7 g/dL (6.1-8.1)
[2024-11-14 13:39] LABS: Anti Nuclear Antibody Screen POSITIVE (NEGATIVE); Anti Nuclear Antibody Titer 1:40 titer
[2024-11-14 15:33] LABS: Kappa, Serum 212 mg/dL (176-443); Kappa/Lambda Ratio, Serum 1.46 (1.29-2.55); Lambda, Serum 145 mg/dL (91-240)
[2024-11-14 21:08] LABS: Myeloperoxidase Antibody <1.0 AI; Proteinase 3 PR3 Antibodies <1.0 AI
[2024-11-15 09:18] LABS: PEU-Rand. Prot/Creat Ratio 660 mg/g creat (24-184); PEU-Random Ur. Gamma Globulin 12 %; PEU-Random Urine A1 Globulin 11 %; PEU-Random Urine A2 Globulin 24 %; PEU-Random Urine Albumin 32 %; PEU-Random Urine Beta Globulin 21 %; PEU-Random Urine Creatinine 50 mg/dL (20-275); PEU-Random Urine Protein 33 mg/dL (5-24)
== END 2024-11-13 13:45 | disposition home health service (06) | DRG 683 ==
LOC: HO.ED 21:04 → HO.EDOVER 21:30 → HO.IMC 22:49
PROVIDERS: Internal Medicine Critical Care Medicine; Nurse Practitioner Family; Admitting Provider Hospitalist; Emergency Provider Emergency Medicine; PCP Family Medicine; Visit Provider Internal Medicine
DX: N17.0 Acute kidney failure with tubular necrosis (principal); E87.1 Hypo-osmolality and hyponatremia; E87.20 Acidosis, unspecified; F05 Delirium due to known physiological condition; G47.01 Insomnia due to medical condition; R19.7 Diarrhea, unspecified; F03.90 Unspecified dementia, unspecified severity, without behavioral disturbance, psychotic disturbance, mood disturbance, and anxiety; K21.9 Gastro-esophageal reflux disease without esophagitis; Z66 Do not resuscitate; E86.0 Dehydration; I11.0 Hypertensive heart disease with heart failure; N83.202 Unspecified ovarian cyst, left side; Z20.822 Contact with and (suspected) exposure to COVID-19; Z87.891 Personal history of nicotine dependence; Z79.899 Other long term (current) drug therapy
CPT/HCPCS: 0241U; 36415; 70450; 71045; 74176; 76856; 80048; 80053; 81001; 82550; 82570; 83605; 83690; 83735; 83880; 83883; 84156; 84165; 84166; 84443; 84484; 85025; 85027; 85652; 85999; 86021; 86038; 86039; 86140; 86160; 87040; 87086; 93005; 99285; J0696; J1644; J7120

== ENCOUNTER → 2024-11-09 18:43 | Outpatient (BNV) | payer MEDICARE, MEDICAID, SELFPAY | PROVIDERS: Admitting Provider Hospitalist; Emergency Provider Emergency Medicine; PCP Family Medicine; Visit Provider Internal Medicine | DX: I49.1 Atrial premature depolarization (principal); I44.7 Left bundle-branch block, unspecified | CPT/HCPCS: 93010 ==

== ENCOUNTER → 2024-11-09 18:45 | Outpatient (BNV) | payer MEDICARE, SELFPAY | PROVIDERS: Emergency Provider Emergency Medicine; PCP Family Medicine; Visit Provider Radiology Diagnostic Radiology | DX: R91.8 Other nonspecific abnormal finding of lung field (principal); R41.0 Disorientation, unspecified; R06.02 Shortness of breath | CPT/HCPCS: 70450; 71045; 74176 ==

== ENCOUNTER → 2024-11-09 21:13 | Outpatient (BNV) | payer MEDICARE, SELFPAY | PROVIDERS: Admitting Provider Hospitalist; Emergency Provider Emergency Medicine; PCP Family Medicine; Visit Provider Internal Medicine | DX: N17.9 Acute kidney failure, unspecified (principal) | CPT/HCPCS: 99223; 99232 ==

== ENCOUNTER → 2024-11-09 21:13 | Outpatient (BNV) | payer MEDICARE, MEDICAID, SELFPAY | PROVIDERS: Admitting Provider Hospitalist; Emergency Provider Emergency Medicine; PCP Family Medicine; Visit Provider Nurse Practitioner Family | DX: N17.9 Acute kidney failure, unspecified (principal); G93.41 Metabolic encephalopathy; I10 Essential (primary) hypertension | CPT/HCPCS: 99232 ==

== ENCOUNTER → 2024-11-09 21:13 | Outpatient (BNV) | payer MEDICARE, SELFPAY | PROVIDERS: Admitting Provider Hospitalist; Emergency Provider Emergency Medicine; PCP Family Medicine; Visit Provider Internal Medicine Critical Care Medicine | DX: I10 Essential (primary) hypertension (principal); N17.9 Acute kidney failure, unspecified; N39.0 Urinary tract infection, site not specified; D62 Acute posthemorrhagic anemia; G93.41 Metabolic encephalopathy | CPT/HCPCS: 99223; 99232 ==

== ENCOUNTER 2024-11-16 14:04 | Outpatient (REF) | payer MEDICARE, MEDICAID, SELFPAY ==
--- OUTSIDE RECORDS SUMMARY | 2024-11-16 14:07 | XMS_ITS | Patient Health Record ---
Author Organization [facility] Address [address] [place] [address] Care Team Providers Care Detacker Name Role Phone LENNOX ZAMBRANO MD Primary Care Provider Kim Khan Unavailable [phone] Reason For Referral No Information Medications Medication [...] W/U Status Risk Notes Problem Postmenopausal bleeding (56536778) Postmenopausal bleeding (N95.0) Active confirmed Plan Of Treatment No Information Insurance Providers Payer Name Payer Address Payer Phone Subscriber Number Group Number Insured Name Patient Relationship to Insured Coverage Start Date Coverage End Date [employer] [address] [place] [address] [id number] RUTH MIDDLETON Self - patient is the insured Medical (General) History Medical History History ICD Code Hypertension
--- OUTSIDE RECORDS SUMMARY | 2024-11-16 14:07 | XMS_ITS ---
Author Organization [facility] [place] Care Team Providers Care Health Teacher Name Role Phone [place] Unavailable Unavailable Pancho Brandon Unavailable Unavailable Allergies and adverse reactions No Known Allergies Care Team Name Role Address Phone Organization Dates Lolly Malcolm [address], [place], [address], [place] (Office): : [facility] [place] 08/12/2022 - 08/20/2022 Pancho Brandon [address], [place], [address], [place] (Office): : : [facility] [place] 08/12/2022 - 08/20/2022 Immunizations Immunization Status Vaccine Details Vaccine Code CodeSystem Date Notes TB 2 Step Mantoux Skin Test completed tuberculin skin test; purified protein derivative solution, intradermal lotNumber: [id number] expiry: 11/02/2023 Mfg: PAR Given 0.1 ml Left Forearm subcutaneously Step 1 of Multi-step with next step required 96 CVX created date: 08/13/2022 consent date: 08/13/2022 administere d date: 08/13/2022 COVID-19 Vaccine Dose 1 completed unknown vaccine or immune globulin Mfg: pfizer 999 CVX created date: 08/16/2022 administere d date: 08/18/2020 COVID-19 Vaccine Dose 2 completed unknown vaccine or immune globulin Mfg: pfizer 999 CVX created date: 08/16/2022 administere d date: 09/09/2020 COVID-19 Vaccine Additional Dose/Booster completed unknown vaccine or immune globulin Mfg: pfizer Bivalent 999 CVX created date: 08/16/2022 administere d date: 05/12/2022 COVID-19 Vaccine Additional Dose/Booster completed unknown vaccine or immune globulin Mfg: pfizer 999 CVX created date: 08/16/2022 administere d date: 10/11/2021 COVID-19 Vaccine Additional Dose/Booster completed unknown vaccine or immune globulin Mfg: pfizer 999 CVX created date: 08/16/2022 consent date: 08/16/2022 administere d date: 05/14/2021 Mental Status Section Date Assessment Total Score Description 08/20/2022 BIMS 15 cognitively int act CAM 0 No delirium ind icated PHQ-9 10 moderate depres melonie 08/16/2022 BIMS 15 cognitively int act CAM 0 No delirium ind icated PHQ-9 10 moderate depres melonie Problems Problem # Description Date of onset Resolved Date Code CodeSystem Concern Status 1 ACUTE POSTHEMORRHAGI C ANEMIA [address] active 2 AGE-RELATED OSTEOPOROSIS WITH CURRENT PATHOLOGICAL FRACTURE, UNSPECIFIED SITE, SEQUELA [address] active 3 DISPLACED INTERTROCHANTERIC FRACTURE OF RIGHT FEMUR, SUBSEQUENT ENCOUNTER FOR CLOSED FRACTURE WITH ROUTINE HEALING [address] active 4 ESSENTIAL (PRIMARY) HYPERTENSION [address] active 5 FALL ON SAME LEVEL, UNSPECIFIED, SUBSEQUENT ENCOUNTER [address] active 6 HYPERLIPIDEMIA, UNSPECIFIED [address] active 7 HYPO-OSMOLALITY AND HYPONATREMIA [address] active 8 OTHER SPECIFIED POSTPROCEDURAL STATES [address] active 9 PERSONAL HISTORY OF (HEALED) TRAUMATIC FRACTURE [address] active 10 PERSONAL HISTORY OF MALIGNANT NEOPLASM OF BREAST [address] active Reason for Referral No Reasons for Referral Entered Social History Social History Observation Description Start Date End Date Code Code System Current Smoking Status Tobacco smoking consumption unknown 249653031 SNOMED CT Sex Assigned At Female 1940 09226-0 [facility] Gender Identity Vital Signs Code Code System Vitals Name Values and Units Timing Information 9279-1 [facility] Respiratory Rate Value=18.0 Units=/m in 08/20/2022 8462-4 [facility] Blood Pressure-Diastolic Value=65 Un its=mmHg 08/20/2022 8480-6 [facility] Blood Pressure-Systolic Jtifv=080 Un its=mmHg 08/20/2022 8310-5 [facility] Body Temperature Value=97.9 Units=?? F 08/20/2022 8867-4 [facility] Heart rate Value=60.0 Units=/min 38987-0 [facility] O2 % BldC Oximetry Value=97.0 Units= % 08/20/2022 82115-9 [facility] Pain Level Value=0.0 08/20/2022 55089-3 [facility] Weight Iuuky=149.2 Units=Lbs 04/2023 8302-2 [facility] Height Value=65.0 Units=Inches 08/13/2022
[2024-11-16 14:15] LABS: Appearance Urine Clear; Color Urine Yellow; Glucose Urine UA 100 mg/dL (Negative); Leukocyte Esterase Urine Negative (Negative); Nitrite Urine Negative (Negative); PH 6.5 (5.0-9.0); Urine Blood Negative (Negative); Urine Ketones Negative (Negative); Urine Protein Trace mg/dL (Neg-Trace)
[2024-11-16 15:30] LABS: Anion Gap 15 (12-20); Blood Urea Nitrogen 29 mg/dL (9-16); Calcium 8.4 mg/dL (8.4-10.2); Carbon Dioxide 23 mmol/L (22-29); Chloride 105 mmol/L (96-108); Estimated Glomerular Filt Rate 33; Glucose Random 128 mg/dL (60-115); Sodium 140 mmol/L (135-145)
[2024-11-19 11:10] LABS: Potassium 2.8 mmol/L (3.3-5.1)
== END 2024-11-16 14:05 | disposition home or self-care (01) ==
LOC: HO.HVNA 14:04
PROVIDERS: Referring Provider Family Medicine; Visit Provider Internal Medicine
DX: N17.9 Acute kidney failure, unspecified (principal); G31.84 Mild cognitive impairment of uncertain or unknown etiology
CPT/HCPCS: 36415; 80048; 81003; 87086